=== PATIENT | male | born 1945 | race Caucasian/White ===

== ENCOUNTER 2020-02-22 13:23 | Outpatient (REF) | payer MEDICARE, MEDICAID, SELFPAY | END 2020-02-22 13:24 | disposition home or self-care (01) | LOC: HO.LAB 13:23 | PROVIDERS: Visit Provider Internal Medicine | DX: Z20.828 Contact with and (suspected) exposure to other viral communicable diseases (principal) | CPT/HCPCS: C9803; U0003 ==

== ENCOUNTER 2020-07-03 08:17 | Outpatient (REF) | payer MEDICARE, MEDICAID, SELFPAY ==
[2020-07-03 09:47] LABS: Alanine Aminotransferase 40 U/L (0-40); Albumin Level 4.2 g/dL (3.5-5.0); Alkaline Phosphatase 67 U/L (39-117); Anion Gap 12 (12-20); Aspartate Amino Transferase 32 U/L (5-37); Bilirubin Total 0.4 mg/dL (0.0-1.0); Blood Urea Nitrogen 23 mg/dL (9-16); Calcium 9.8 mg/dL (8.4-10.2); Carbon Dioxide 32 mmol/L (22-29); Chloride 104 mmol/L (96-108); Cholesterol 188 mg/dL; Estimated Glomerular Filt Rate > 60; Glucose Fasting 128 mg/dL (60-99); HDL Cholesterol 55 mg/dL; LDL Cholesterol Calculated 118 mg/dl; Potassium 4.8 mmol/L (3.3-5.1); Sodium 143 mmol/L (135-145); Total Protein 6.8 g/dL (6.5-8.0); Triglycerides 77 mg/dL
== END 2020-07-03 08:18 | disposition home or self-care (01) ==
LOC: HO.LAB 08:17
PROVIDERS: PCP Internal Medicine; Visit Provider Internal Medicine
DX: I10 Essential (primary) hypertension (principal); E78.5 Hyperlipidemia, unspecified
CPT/HCPCS: 36415; 80053; 80061

== ENCOUNTER 2020-11-13 12:49 | Outpatient (REF) | payer MEDICARE, MEDICAID, SELFPAY ==
--- NOTE | ~2020-11-13 | XR_ITS ---
EXAMINATION: XR SHOULDER, LEFT CLINICAL INFORMATION: Sprain COMPARISON: None TECHNIQUE: 3 views of the left shoulder. FINDINGS: No fracture or dislocation is seen. 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 There are small undersurface acromial osteophytes. The acromioclavicular joint appears slightly widened on the AP view. If there is clinical suspicion of AC separation, weightbearing views would be recommended. Soft tissues are unremarkable. XR/XR shoulder LT min 2V IMPRESSION: Degenerative changes. No fracture or dislocation seen. Slightly widened acromioclavicular joint. If there is clinical suspicion of AC separation, weightbearing views would be recommended.
== END 2020-11-13 12:50 | disposition home or self-care (01) ==
LOC: HO.HMGCX 12:49
PROVIDERS: PCP Internal Medicine; Visit Provider Internal Medicine
DX: Z13.89 Encounter for screening for other disorder (principal)
CPT/HCPCS: 73030

== ENCOUNTER → 2020-12-07 09:50 | Outpatient (BNVA) | payer MEDICARE, MEDICAID, SELFPAY | PROVIDERS: PCP Internal Medicine; Visit Provider Physician Assistant | DX: M77.8 Other enthesopathies, not elsewhere classified (principal) | CPT/HCPCS: 99202 ==

== ENCOUNTER 2021-06-03 08:43 | Outpatient (REF) | payer MEDICARE, MEDICAID, SELFPAY ==
[2021-06-03 09:03] LABS: MANUAL DIFF FLAG NO
[2021-06-03 09:26] LABS: Basophils Absolute Auto 0.1 X10*3/uL (0.0-0.2); Eosinophils Absolute Auto 0.2 X10*3/uL (0.0-0.4); Eosinophils Percent Auto 3.1 % (0-4); Hematocrit 51.6 % (42.0-52.0); Hemoglobin 16.8 g/dl (14.0-18.0); Imm Gran Abs Auto 0.02 X10*3/uL (0.00-0.03); Imm Gran Pct Auto 0.3 % (0.0-0.4); Lymphocytes Absolute Auto 1.8 X10*3/uL (1.2-4.9); Lymphocytes Percent Auto 27.2 % (20-40); Mean Corpuscular HGB Conc 32.6 g/dl (31.0-36.0); Mean Corpuscular Hemoglobin 31.4 pg (27.0-33.0); Mean Corpuscular Volume 96.4 fL (80.0-98.0); Monocytes Absolute Auto 1.1 X10*3/uL (0.1-1.2); Neutrophils Absolute Auto 3.4 x10*3/uL (2.0-8.3); Neutrophils Percent Auto 51.4 % (45-73); Platelet Count 241 X10*3/uL (160-400); Red Blood Count 5.35 X10*6/uL (4.60-5.80); Red Cell Distribution Width 13.1 % (11.0-16.0); White Blood Count 6.7 X10*3/uL (4.8-10.8)
[2021-06-03 09:32] LABS: Estimated Average Glucose 137 mg/dL; Hemoglobin A1c % 6.4 %
[2021-06-03 10:00] LABS: Alanine Aminotransferase 36 U/L (0-40); Albumin Level 4.3 g/dL (3.5-5.0); Alkaline Phosphatase 105 U/L (39-117); Anion Gap 13 (12-20); Aspartate Amino Transferase 29 U/L (5-37); Bilirubin Total 0.5 mg/dL (0.0-1.0); Blood Urea Nitrogen 17 mg/dL (9-16); Calcium 9.8 mg/dL (8.4-10.2); Carbon Dioxide 31 mmol/L (22-29); Chloride 103 mmol/L (96-108); Cholesterol 133 mg/dL; Estimated Glomerular Filt Rate > 60; Glucose Fasting 139 mg/dL (60-99); HDL Cholesterol 47 mg/dL; LDL Cholesterol Calculated 72 mg/dl; Potassium 4.6 mmol/L (3.3-5.1); Sodium 142 mmol/L (135-145); Total Protein 7.1 g/dL (6.5-8.0); Triglycerides 74 mg/dL
[2021-06-03 10:13] LABS: TSH reflex Free T4 1.36 uIU/mL (0.32-4.0)
[2021-06-03 10:26] LABS: Folate 16.4 ng/mL (> or = 4.0); Vitamin B12 270 pg/mL (200-900)
[2021-06-07 13:06] LABS: Vitamin D 25-OH, D2 <4 ng/mL; Vitamin D 25-OH, D3 9 ng/mL; Vitamin D 25-OH, Total 9 ng/mL (30-100)
== END 2021-06-03 08:44 | disposition home or self-care (01) ==
LOC: HO.LAB 08:43
PROVIDERS: PCP Internal Medicine; Visit Provider Nurse Practitioner Acute Care
DX: I10 Essential (primary) hypertension (principal); R53.83 Other fatigue; R73.02 Impaired glucose tolerance (oral); E78.5 Hyperlipidemia, unspecified
CPT/HCPCS: 36415; 80053; 80061; 82306; 82607; 82746; 83036; 84443; 85025

== ENCOUNTER 2021-07-01 09:20 | Outpatient (REF) | payer MEDICARE, MEDICAID, SELFPAY ==
--- NOTE | ~2021-07-01 | US_ITS ---
EXAMINATION: US EXTRACRANIAL CAROTID DUPLEX, BILATERAL CLINICAL INFORMATION: This is a 75-year-old male with a carotid bruit. Carotid artery disease. History of carotid endarterectomy on the right side. COMPARISON: Comparison is made to a previous study dated 09/02/2017 which demonstrated 50-79% right internal carotid artery stenosis and 50-79% left internal carotid artery stenosis. TECHNIQUE: Real-time ultrasound and Doppler techniques (integrating B-mode 2-D vascular images, Doppler spectral analysis and color-flow Doppler imaging) were utilized to interrogate the extracranial carotid arteries, the vertebral arteries and proximal subclavian arteries bilaterally. The degree of stenosis is determined by criteria similar to NASCET. FINDINGS: Right Side: 1. There is moderate atherosclerotic plaque seen in the bifurcation/proximal ICA region. 2. The common carotid artery PSV proximally is 147 cm/s and distally 107 cm/s. 3. The proximal internal carotid artery velocities are 182 cm/s systolic and 31 cm/s diastolic. 4. The proximal external carotid artery PSV is 349 cm/s. The velocities are elevated suggesting hemodynamically significant stenosis. This was seen previously on the study dated 09/02/2017. 5. The vertebral artery shows antegrade flow. 6. The subclavian artery waveforms are normal.. Left Side: 1. There is minimal atherosclerotic plaque seen in the bifurcation/proximal ICA region. 2. The common carotid artery PSV proximally is 116 cm/s and distally 88 cm/s. 3. The proximal internal carotid artery velocities are 57 cm/s systolic and 10 cm/s diastolic. 4. The proximal external carotid artery PSV is 501 cm/s.. The velocities are elevated suggesting hemodynamically significant stenosis. This appears more severe when compared to the previous study dated 09/02/2017. 5. The vertebral artery shows antegrade flow. 6. The subclavian artery waveforms are normal. US/US carotid duplex BI IMPRESSION: 1. RIGHT: Moderate, hemodynamically significant stenosis of the proximal right internal carotid artery corresponding to a 50-79% stenosis by velocity criteria. The category severity of disease appears similar to the previous study. 2. LEFT: Minimal, non-hemodynamically significant stenosis of the proximal left internal carotid artery corresponding to a 0-49% stenosis by velocity criteria. The category severity of disease appears less severe when compared to the previous study. 3. There is a complex cystic and solid mass adjacent to the right internal carotid artery. This is new when compared to the previous examination dated 09/02/2017. This measures 1.9 x 0.9 x 1.9 cm. There are areas of internal echoes within the mass. This does not appear to be a simple lymph node. Further investigation is recommended with CT scan of the neck with contrast.
== END 2021-07-01 09:21 | disposition home or self-care (01) ==
LOC: HO.US 09:20
PROVIDERS: PCP Internal Medicine; Visit Provider Nurse Practitioner Acute Care
DX: I65.22 Occlusion and stenosis of left carotid artery (principal); R09.89 Other specified symptoms and signs involving the circulatory and respiratory systems; G47.33 Obstructive sleep apnea (adult) (pediatric)
CPT/HCPCS: 93880

== ENCOUNTER → 2021-07-11 10:06 | Outpatient (BNVA) | payer MEDICARE, MEDICAID, SELFPAY | PROVIDERS: PCP Internal Medicine; Referring Provider Internal Medicine; Visit Provider Surgery | DX: K80.20 Calculus of gallbladder without cholecystitis without obstruction (principal); K42.9 Umbilical hernia without obstruction or gangrene; K59.04 Chronic idiopathic constipation; R09.89 Other specified symptoms and signs involving the circulatory and respiratory systems; R73.02 Impaired glucose tolerance (oral); E78.5 Hyperlipidemia, unspecified; G47.33 Obstructive sleep apnea (adult) (pediatric); I71.4 Abdominal aortic aneurysm, without rupture; I10 Essential (primary) hypertension; F17.210 Nicotine dependence, cigarettes, uncomplicated | CPT/HCPCS: 99202 ==

== ENCOUNTER 2021-07-16 09:26 | Outpatient (REF) | payer MEDICARE, MEDICAID, SELFPAY ==
[2021-07-16 09:55] LABS: MANUAL DIFF FLAG NO
[2021-07-16 10:17] LABS: Basophils Absolute Auto 0.1 X10*3/uL (0.0-0.2); Basophils Percent Auto 0.9 % (0-2); Eosinophils Absolute Auto 0.2 X10*3/uL (0.0-0.4); Eosinophils Percent Auto 3.5 % (0-4); Hematocrit 45.1 % (42.0-52.0); Hemoglobin 14.9 g/dl (14.0-18.0); Imm Gran Abs Auto 0.02 X10*3/uL (0.00-0.03); Imm Gran Pct Auto 0.4 % (0.0-0.4); Lymphocytes Absolute Auto 1.5 X10*3/uL (1.2-4.9); Mean Corpuscular Hemoglobin 31.4 pg (27.0-33.0); Mean Corpuscular Volume 95.1 fL (80.0-98.0); Mean Platelet Volume 9.8 fL (9.4-12.4); Monocytes Absolute Auto 0.7 X10*3/uL (0.1-1.2); Monocytes Percent Auto 12.5 % (2-11); Neutrophils Absolute Auto 3.2 x10*3/uL (2.0-8.3); Neutrophils Percent Auto 55.7 % (45-73); Platelet Count 238 X10*3/uL (160-400); Red Blood Count 4.74 X10*6/uL (4.60-5.80); Red Cell Distribution Width 13.7 % (11.0-16.0); White Blood Count 5.7 X10*3/uL (4.8-10.8)
[2021-07-16 10:40] LABS: Alanine Aminotransferase 31 U/L (0-40); Alkaline Phosphatase 79 U/L (39-117); Anion Gap 14 (12-20); Aspartate Amino Transferase 24 U/L (5-37); Bilirubin Total 0.2 mg/dL (0.0-1.0); Blood Urea Nitrogen 20 mg/dL (9-16); Calcium 9.4 mg/dL (8.4-10.2); Carbon Dioxide 27 mmol/L (22-29); Chloride 104 mmol/L (96-108); Estimated Glomerular Filt Rate > 60; Glucose Random 122 mg/dL (60-115); Potassium 4.1 mmol/L (3.3-5.1); Sodium 141 mmol/L (135-145); Total Protein 6.6 g/dL (6.5-8.0)
== END 2021-07-16 09:27 | disposition home or self-care (01) ==
LOC: HO.LAB 09:26
PROVIDERS: PCP Internal Medicine; Visit Provider Nurse Practitioner Acute Care
DX: R22.1 Localized swelling, mass and lump, neck (principal)
CPT/HCPCS: 36415; 80053; 85025

== ENCOUNTER 2021-07-18 09:48 | Outpatient (REF) | payer MEDICARE, MEDICAID, SELFPAY ==
--- NOTE | ~2021-07-18 | CT_ITS ---
EXAMINATION: CT SOFT TISSUE NECK WITH CONTRAST CLINICAL INFORMATION: 75-year-old with right neck mass seen on previous carotid ultrasound. COMPARISON: 07/01/2021 carotid ultrasound. TECHNIQUE: Following the intravenous administration of 60 mL of Omnipaque 350 intravenous contrast, helical imaging was performed in the axial plane with generation of coronal and sagittal reformatted images. This CT examination was performed using dose optimization techniques as appropriate, variously including the following: *Automated exposure control. *Adjustment of mA and/or kV according to patient size (this includes techniques or standardized protocols for targeted exams where dose is matched to indication/reason for exam; i.e. extremities or head). *Use of iterative reconstruction technique. DLP: 822 mGy-cm FINDINGS: Skull Base: The visualized calvarium and bony skull base appear grossly intact. The mastoids and middle ear cavities are unopacified and the visualized paranasal sinuses are predominantly clear. Bilateral carotid calcifications are noted. The visualized intracranial structures are grossly unremarkable in appearance within the limitations of the study. Suprahyoid Neck: The nasopharynx shows a few punctate calcifications in the midline but is otherwise bilaterally symmetric and normal in morphology and attenuation. Retropharynx appears unremarkable. The station mechanic apprentice and parapharyngeal spaces are within normal limits. The oropharynx is smoothly contoured. The parotid glands and submandibular glands are normal in morphology and attenuation. The visualized oral tongue, base of the tongue and floor of the mouth structures are symmetric and normal in attenuation. There is calcification of the distal right stylohyoid ligament. There are small, nonenlarged bilateral submandibular space and submental lymph nodes. There are multiple nonpathologic-appearing, nonenlarged bilateral suprahyoid IJ chain lymph nodes and there is a nonenlarged periparotid lymph node adjacent to the tail of the left parotid gland. Note is made of a 1.8 x 1.7 x 1.1 cm ovoid, well circumscribed fluid attenuation structure within the subcutaneous fat just lateral to the right platysma and external jugular vein and sternocleidomastoid muscle at the level of the submandibular space. The location of this lesion is not consistent with a type II branchial cleft cyst. Differential diagnostic considerations would include a sebaceous cyst or possibly an enlarged cystic lymph node. Recommend tissue diagnosis. Infrahyoid Neck: Atheromatous calcified plaque at both carotid bifurcations are noted. See previous carotid ultrasound report. The hypopharynx, larynx and thyroid gland appear within normal limits. No infrahyoid lymphadenopathy identified. Upper Chest: Probable fibrotic changes at both lung apices. Heterogeneous lung attenuation noted bilaterally is likely reflecting the expiratory state of this exam. Atheromatous calcifications of the thoracic aortic arch and great vessels are noted. Skeletal: Cervical discogenic degenerative changes at C5-C6 and C6-C7 with mild anterolisthesis at C4-C5 and trace anterolisthesis at C5-C6. Mild lower cervical dextrocurvature. Heterotopic ossification along the nuchal ligament. Other Comments: None. CT/CT soft tissue neck w con IMPRESSION: 1. A 1.8 cm ovoid somewhat cystic-appearing subcutaneous mass overlying the lateral aspect of the right platysma. Differential diagnostic considerations include sebaceous cyst (epidermal inclusion cyst), cystic lymph node or less likely the remnant of a lymphatic malformation. Suggest tissue diagnosis. 2. Otherwise, no cervical lymphadenopathy. 3. Atheromatous calcifications of the carotid bifurcations. See previous carotid ultrasound report. 4. Cervical degenerative changes and subluxations.
== END 2021-07-18 09:49 | disposition home or self-care (01) ==
LOC: HO.CT 09:48
PROVIDERS: Visit Provider Nurse Practitioner Acute Care
DX: R22.1 Localized swelling, mass and lump, neck (principal)
CPT/HCPCS: 70491; Q9967

== ENCOUNTER → 2021-08-11 21:03 | Outpatient (REF) | payer MEDICARE, MEDICAID, SELFPAY | LOC: HO.SL 21:03 | PROVIDERS: Visit Provider Nurse Practitioner Acute Care | DX: G47.33 Obstructive sleep apnea (adult) (pediatric) (principal) | CPT/HCPCS: 95810 ==

== ENCOUNTER → 2021-10-15 10:30 | Outpatient (BNVA) | payer MEDICARE, MEDICAID, SELFPAY | PROVIDERS: PCP Internal Medicine; Visit Provider Surgery | DX: K42.9 Umbilical hernia without obstruction or gangrene (principal); K59.00 Constipation, unspecified; K80.20 Calculus of gallbladder without cholecystitis without obstruction; I71.4 Abdominal aortic aneurysm, without rupture; K64.9 Unspecified hemorrhoids; Z79.899 Other long term (current) drug therapy | CPT/HCPCS: 99212 ==

== ENCOUNTER → 2021-11-26 11:38 | Outpatient (BNVA) | payer MEDICARE, MEDICAID, SELFPAY | PROVIDERS: PCP Internal Medicine; Visit Provider Orthopaedic Surgery | DX: M65.341 Trigger finger, right ring finger (principal); M65.331 Trigger finger, right middle finger; M65.332 Trigger finger, left middle finger | CPT/HCPCS: 99212 ==

== ENCOUNTER 2021-12-10 10:05 | Outpatient (REF) | payer MEDICARE, MEDICAID, SELFPAY ==
--- NOTE | ~2021-12-10 | US_ITS ---
EXAMINATION: US RETROPERITONEAL LIMITED (AORTA) CLINICAL INFORMATION: Abdominal aortic aneurysm without rupture. COMPARISON: None TECHNIQUE: Velasco-scale, color Doppler and spectral Doppler evaluation of the abdominal aorta. FINDINGS: There is mild dilatation of the distal abdominal aorta measuring 3.6 x 4 cm. The measurements of the aorta in maximum AP and transverse dimensions respectively are as follows: Proximal: 2.2 x 2.8 cm. Mid: 3.6 x 4.0 cm. Distal: 2.0 x 2.2 cm. PSV: 145 cm/s. The measurements of the common iliac arteries in maximum AP and TRV dimensions are as follows: Right Common Iliac Artery: 1.1 x 1.2 cm. Left Common Iliac Artery: 1.2 x 1.2 cm. US/US abdominal aortic aneurysm IMPRESSION: Small abdominal aortic aneurysm measuring 3.6 x 4 cm. Yearly ultrasound followup for 5 years recommended..
== END 2021-12-10 10:06 | disposition home or self-care (01) ==
LOC: HO.US 10:05
PROVIDERS: Visit Provider Internal Medicine
DX: I71.40 Abdominal aortic aneurysm, without rupture, unspecified (principal)
CPT/HCPCS: 76706

== ENCOUNTER → 2022-02-13 10:07 | Outpatient (BNVA) | payer MEDICARE, MEDICAID, SELFPAY | PROVIDERS: PCP Internal Medicine; Visit Provider Surgery Vascular Surgery | DX: I71.40 Abdominal aortic aneurysm, without rupture, unspecified (principal) | CPT/HCPCS: 99202 ==

== ENCOUNTER → 2022-02-27 08:47 | Outpatient (REF) | payer MEDICARE, MEDICAID, SELFPAY ==
--- NOTE | 2022-02-27 08:51 | ECG_ITS ---
Test Reason : Z01.810 Pre-op Blood Pressure : / mmHG Vent. Rate : 078 BPM Atrial Rate : 078 BPM P-R Int : 184 ms QRS Dur : 104 ms QT Int : 392 ms P-R-T Axes : 077 069 099 degrees QTc Int : 446 ms Normal sinus rhythm Nonspecific T wave abnormality Abnormal ECG When compared to the previous EKG of nonspecific T wave changes are present Referred By: Montserrat Goldman Electronically Signed By:Joe Patrick
[2022-02-27 09:02] LABS: MANUAL DIFF FLAG NO
[2022-02-27 09:31] LABS: Basophils Percent Auto 0.6 % (0-2); Eosinophils Absolute Auto 0.2 X10*3/uL (0.0-0.4); Eosinophils Percent Auto 3.1 % (0-4); Hematocrit 48.7 % (42.0-52.0); Hemoglobin 15.9 g/dl (14.0-18.0); Imm Gran Abs Auto 0.02 X10*3/uL (0.00-0.03); Imm Gran Pct Auto 0.3 % (0.0-0.4); Lymphocytes Absolute Auto 1.7 X10*3/uL (1.2-4.9); Lymphocytes Percent Auto 27.1 % (20-40); Mean Corpuscular HGB Conc 32.6 g/dl (31.0-36.0); Mean Corpuscular Hemoglobin 31.5 pg (27.0-33.0); Mean Corpuscular Volume 96.6 fL (80.0-98.0); Monocytes Absolute Auto 0.7 X10*3/uL (0.1-1.2); Monocytes Percent Auto 11.3 % (2-11); Neutrophils Absolute Auto 3.6 x10*3/uL (2.0-8.3); Neutrophils Percent Auto 57.6 % (45-73); Platelet Count 243 X10*3/uL (160-400); Red Blood Count 5.04 X10*6/uL (4.60-5.80); Red Cell Distribution Width 13.8 % (11.0-16.0); White Blood Count 6.2 X10*3/uL (4.8-10.8)
[2022-02-27 10:36] LABS: Alanine Aminotransferase 26 U/L (0-40); Albumin Level 4.3 g/dL (3.5-5.0); Alkaline Phosphatase 86 U/L (39-117); Anion Gap 11 (12-20); Aspartate Amino Transferase 25 U/L (5-37); Blood Urea Nitrogen 18 mg/dL (9-16); Calcium 9.5 mg/dL (8.4-10.2); Carbon Dioxide 31 mmol/L (22-29); Chloride 104 mmol/L (96-108); Cholesterol 141 mg/dL; Estimated Glomerular Filt Rate > 60; Glucose Fasting 122 mg/dL (60-99); HDL Cholesterol 53 mg/dL; LDL Cholesterol Calculated 77 mg/dl; Potassium 4.6 mmol/L (3.3-5.1); Sodium 141 mmol/L (135-145); Total Protein 6.8 g/dL (6.5-8.0); Triglycerides 56 mg/dL
[2022-02-27 11:41] LABS: Bilirubin Total 0.4 mg/dL (0.0-1.0); Thyroid Stimulating Hormone 1.97 uIU/mL (0.32-4.0); Vitamin D 25-OH Total 18.8 ng/mL (>30)
[2022-02-27 13:28] LABS: Folate 11.7 ng/mL (> or = 4.0); Vitamin B12 279 pg/mL (200-900)
== END ==
LOC: HO.CARD 08:47
PROVIDERS: PCP Internal Medicine; Visit Provider Internal Medicine
DX: Z01.810 Encounter for preprocedural cardiovascular examination (principal); R53.82 Chronic fatigue, unspecified; I71.40 Abdominal aortic aneurysm, without rupture, unspecified; E55.9 Vitamin D deficiency, unspecified; E78.5 Hyperlipidemia, unspecified
CPT/HCPCS: 36415; 80053; 80061; 82306; 82607; 82746; 84443; 85025; 93005

== ENCOUNTER 2022-08-01 08:41 | Outpatient (REF) | payer MEDICARE, MEDICAID, SELFPAY ==
[2022-08-01 08:56] LABS: MANUAL DIFF FLAG NO
[2022-08-01 09:12] LABS: Basophils Absolute Auto 0.1 X10*3/uL (0.0-0.2); Basophils Percent Auto 0.9 % (0-2); Eosinophils Absolute Auto 0.2 X10*3/uL (0.0-0.4); Eosinophils Percent Auto 2.7 % (0-4); Hematocrit 42.9 % (42.0-52.0); Hemoglobin 14.3 g/dl (14.0-18.0); Imm Gran Abs Auto 0.01 X10*3/uL (0.00-0.03); Imm Gran Pct Auto 0.1 % (0.0-0.4); Lymphocytes Absolute Auto 1.9 X10*3/uL (1.2-4.9); Lymphocytes Percent Auto 27.9 % (20-40); Mean Corpuscular HGB Conc 33.3 g/dl (31.0-36.0); Mean Corpuscular Hemoglobin 31.8 pg (27.0-33.0); Mean Corpuscular Volume 95.5 fL (80.0-98.0); Mean Platelet Volume 9.2 fL (9.4-12.4); Monocytes Percent Auto 14.4 % (2-11); Neutrophils Absolute Auto 3.6 x10*3/uL (2.0-8.3); Platelet Count 277 X10*3/uL (160-400); Red Blood Count 4.49 X10*6/uL (4.60-5.80); Red Cell Distribution Width 13.9 % (11.0-16.0); White Blood Count 6.7 X10*3/uL (4.8-10.8)
[2022-08-01 09:58] LABS: Alanine Aminotransferase 40 U/L (0-40); Albumin Level 4.1 g/dL (3.5-5.0); Alkaline Phosphatase 79 U/L (39-117); Anion Gap 14 (12-20); Aspartate Amino Transferase 31 U/L (5-37); Bilirubin Total 0.4 mg/dL (0.0-1.0); Blood Urea Nitrogen 16 mg/dL (9-16); Calcium 9.6 mg/dL (8.4-10.2); Carbon Dioxide 25 mmol/L (22-29); Chloride 106 mmol/L (96-108); Cholesterol 143 mg/dL; Estimated Glomerular Filt Rate > 60; Glucose Fasting 113 mg/dL (60-99); HDL Cholesterol 56 mg/dL; LDL Cholesterol Calculated 74 mg/dl; Potassium 4.7 mmol/L (3.3-5.1); Sodium 140 mmol/L (135-145); Total Protein 6.5 g/dL (6.5-8.0); Triglycerides 67 mg/dL
[2022-08-09 14:43] LABS: NT-proBNP 51 pg/mL (<450)
== END 2022-08-01 08:42 | disposition home or self-care (01) ==
LOC: HO.LAB 08:41
PROVIDERS: PCP Internal Medicine; Visit Provider Internal Medicine
DX: R07.9 Chest pain, unspecified (principal); E78.5 Hyperlipidemia, unspecified; E55.9 Vitamin D deficiency, unspecified; I10 Essential (primary) hypertension
CPT/HCPCS: 36415; 80053; 80061; 82306; 83880; 85025

== ENCOUNTER 2022-08-07 09:07 | Outpatient (REF) | payer MEDICARE, MEDICAID, SELFPAY ==
--- NOTE | ~2022-08-07 | US_ITS ---
EXAMINATION: US RETROPERITONEAL LIMITED (AORTA) CLINICAL INFORMATION: Abdominal aortic aneurysm without rupture, unspecified. COMPARISON: Ultrasound aorta 12/10/2021. TECHNIQUE: Velasco-scale, color Doppler and spectral Doppler evaluation of the abdominal aorta. FINDINGS: The measurements of the aorta in maximum AP and transverse dimensions respectively are as follows: Proximal: 2.1 x 2.1 cm. Mid: 2.2 x 2.1 cm. Distal: 3.5 x 4.0 cm. PSV: 89.4 cm/s. The measurements of the common iliac arteries in maximum AP and TRV dimensions are as follows: Right Common Iliac Artery: 1.1 x 1.1 cm. Left Common Iliac Artery: 1.3 x 1.2 cm. US/US abdominal aortic aneurysm IMPRESSION: Mild distal aortic aneurysm measuring 3.5 x 4.0 cm. It is unchanged to previous exam.
== END 2022-08-07 09:08 | disposition home or self-care (01) ==
LOC: HO.US 09:07
PROVIDERS: Visit Provider Surgery Vascular Surgery
DX: I71.40 Abdominal aortic aneurysm, without rupture, unspecified (principal)
CPT/HCPCS: 76706

== ENCOUNTER → 2022-08-21 13:22 | Outpatient (REF) | payer MEDICARE, MEDICAID, SELFPAY ==
--- NOTE | 2022-08-21 13:24 | CA_ITS ---
Transthoracic Echocardiogram Patient (Last, First, Middle): Easton Kelly A Gender: Male Date of : 1945 Age: 76 Procedure Date: 08/21/2022 Procedure Type: Transthoracic Echocardiogram Location: OP Height: 175.26 cm Weight: 90.72 kg BSA: 2.07 m2 Heart Rate: bpm BP: 144 / 72 mmHg Singer And Unloader: MILTON Referring MD: Montserrat Goldman MD Penology Professor: Misha Loza MD Symptoms: R01.1 - Cardiac murmur, unspecified Study Quality: Adequate ECG Rhythm: Sinus Conclusions: - 1. Normal LV systolic function with mild LVH with grade 1 diastolic dysfunction 2. Normal cardiac valvular Dopplers next 3. Normal RV systolic pressure 4. No gross pericardial effusion Findings Left Ventricle Normal left ventricular size and systolic function. There is mildly increased left ventricular wall thickness. The visually estimated ejection fraction is between 60-65%. Spectral Doppler is indicative of an impaired relaxation filling pattern. E/E prime ratio is <8, consistent with normal filling pressures. Evidence suggests grade I (mild) diastolic dysfunction. Peak GLS is -18.1%, within normal limits, Right Ventricle Normal right ventricular cavity size and systolic function. Atria The left atrium is likely dilated. There is no evidence of interatrial shunt. The right atrium is normal in size. Aortic Valve Normal aortic valve structure and function. There is no aortic valve stenosis. There is no aortic valve regurgitation. Mitral Valve Normal mitral valve structure and function. There is trace mitral valve regurgitation. There is no mitral valve stenosis. Pulmonic Valve The pulmonic valve is likely normal. Tricuspid Valve Normal tricuspid valve structure. There is trace tricuspid valve regurgitation. The right ventricular systolic pressure is normal. The right ventricular systolic pressure is 19 mmHg. Normal right atrial pressure. There is no evidence of pulmonary hypertension. Great Vessels All visible segments of the aorta are normal in size. The pulmonary artery was not well visualized. Venous The inferior vena cava is normal in size and collapses greater than 50% with inspiration. Pericardium/Pleural There is no evidence of pericardial effusion. Measurements 2D Linear Measurements IVSd: 1.10 0.6-0.9/0.6-1.0 cm LVIDd: 4.56 3.9-5.3/4.2-5.9 cm LVIDd Index: 2.20 2.4-3.2/2.2-3.1 cm/m2 LVIDs: 2.85 2.0-3.6 cm LVPWd: 1.23 0.7-1.1 cm LA Diam: 2.80 2.7-3.8/3.0-4.0 cm LAIDs Index: 1.35 1.5-2.3 cm/m2 LV Mass: 241.55 67-162/88-224 g LV Mass Index: 116.69 43-95/49-115 g/m2 LVOT Diam: 2.00 3.0+(-)1.3 cm 2D Systolic Function EF 4C: 64.20 >55% EF 2C: 70.20 >55% EF BiP: 67.70 >55% Mitral Valve MV Pk E: 0.78 MV PK A: 0.99 MV Decel Time: 367.00 E/A: 0.80 E'Lateral: 6.85 E'Medial: 5.55 E/E' Med: 14.00 E/E' Lat: 11.30 PHT: 107.00 MVA PHT: 2.06 Decel [place]: 2.12 Aortic Valve AoV Pk Giovany: 2.16 AoV Mn Giovany: 1.25 AoV VTI: 0.39 AoV Pk Grad: 19.00 Aov Mn Grad: 7.00 DANTE Cont.VTI: 2.61 LVOT LVOT Pk Giovany: 1.53 LVOT Mn Giovany: 1.06 LVOT VTI: 0.32 LVOT Pk Grad: 9.00 LVOT Mn Grad: 5.00 LVOT Diam: 2.00 LVOT Area: 3.14 Diastolic Function MV Pk E: 0.78 MV Pk A: 0.99 E/A: 0.80 E'Medial: 5.55 E/E' Med: 14.00 E' Laterial: 6.85 E/E' Lat: 11.30 Right Ventricle TAPSE (mm): 26.30 TVS' Giovany: 16.40 Tricuspid Valve TR Pk Giovany: 2.01 TR Pk Grad: 16.00 RA Press: 3.00 RVSP: 19.00 Great Vessels Aorta Sinus of Valsalva: 3.21 2.0-3.[address] Ridge: 2.17 1.7-3.4 cm Ao Asc: 3.00 2.1-3.4 cm Ao Arch: 2.70 Updated in Other Vendor System with Status of Final Misha Loza MD electronically signed on 08/23/2022 12:32:40 PM with status of Final
== END ==
LOC: HO.CARD 13:22
PROVIDERS: Visit Provider Internal Medicine
DX: R01.1 Cardiac murmur, unspecified (principal)
CPT/HCPCS: 93306; 93356

== ENCOUNTER 2022-10-07 08:30 | Outpatient (AMB) | payer MEDICARE, MEDICAID, SELFPAY ==
[2022-10-07 08:43] VITALS: BP 140/88; PULSE 90; BMI 29.9
--- NOTE | 2022-10-07 08:43 | MHC.OFFVIS ---
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, unspecified Intake Note: New patient from Dr Bolñaos dx chest pain c/o pain done the center of chest (even hurts to laugh) also c/o sob Sales Support Advisor Required: Yes Sales Support Advisor Name: christo willams Allergies No Known Allergies Allergy (Mild, Verified 07/31/22 16:25) NOT APPLICABLE Medication List - Last Reconciled 10/07/22 by Misha Loza MD aspirin (Adult Low Dose Aspirin) 81 mg PO DAILY atorvastatin 40 mg PO BEDTIME 90 days cholecalciferol (vitamin D3) 25 mcg PO DAILY 90 days diclofenac sodium 1% (Voltaren Arthritis Pain) 4 grams topical QID PRN diltiazem HCl 240 mg PO DAILY 90 days hydralazine 50 mg PO TID 30 days hydrochlorothiazide 25 mg PO DAILY 90 days lisinopril 40 mg PO DAILY 90 days sennosides (senna) 8.6 mg PO BEDTIME PRN 90 days HPI HPI Comments History of Present Illness Details Thank you for referring Easton in cardiology consultation today for chest discomfort. We obtain history was help of for medical education coordinator. Despite the medical education coordinator patient is not a good historian. Patient said about a month ago he went to [facility] because of severe chest discomfort in the retrosternal area. He had a workup there and was subsequently told to follow-up with a cook pickled meat and he has been referred here. He said for about a month or before that he has been symptoms of exertional fatigue and associated with mild chest discomfort. However on the day when he went to the emergency room he over exerted himself a got more severe chest pain therefore event to the emergency room. Since then he does get symptoms of exertional shortness of breath with similar activity, there is no crescendo pattern to it. He then stops. If he does not he does get mild chest pressure. However history is difficult to obtain. He has not had any symptoms at rest. He denies any orthopnea, PND. He had abdominal ultrasound which shows abdominal aortic aneurysm at 4 cm. He had carotid duplex last year which shows 50-79% stenosis on the right and 0-49% stenosis on the left. He has never any cardiac workup. He has longstanding history of hypertension which is currently treated with medications. He also has hyperlipidemia for which he takes medications. Never had myocardial infarction or congestive heart failure. Echocardiogram done recently for murmur shows normal LV systolic function with mild LVH with normal cardiac valvular Doppler [facility] Medical History Dyslipidemia Essential hypertension Impaired glucose tolerance Surgical History History of knee replacement History of prostate surgery Family History Father No problems noted. Mother No problems noted. Social History Housing: House Alcohol intake: current Alcohol intake frequency: a few times a month Alcohol type: beer Patient Tobacco Use Status: Current someday Tobacco user Tobacco use type: Cigarette Cigarettes Per Day: 3 e-Cigarette/Vaping Use: Never Used Second Hand Smoke Exposure: No service: No Current occupational status: retired and disabled Cognitive needs: No Hearing needs: No Vision needs: Yes (glasses) Review of Systems Const Denies chills, Denies daytime sleepiness, Denies fatigue, Denies fever(s), Denies frequent falls, Denies poor appetite, Denies snoring, Denies stops breathing during sleep, Denies weakness, Denies weight gain and Denies weight loss Eyes Denies loss of vision ENT Denies dizziness and Denies hearing loss Card Denies chest pain, Denies claudication, Denies leg edema, Denies lightheadedness, Denies palpitations, Denies dyspnea, Denies dyspnea on exertion and Denies orthopnea Resp Denies cough, Denies excessive phlegm production, Denies dyspnea, Denies dyspnea on exertion, Denies snoring and Denies wheezing GI Denies abdominal pain, Denies hematochezia, Denies change in bowel habits, Denies nausea and Denies vomiting Denies dysuria and Denies urinary frequency Musc Denies arthralgias, Denies muscle weakness, Denies numbness and Denies other (frequent falls) Skin/Breast Denies nail changes and Denies rash Neuro Denies Abnormal speech present, Denies dizziness, Denies frequent falls, Denies loss of vision, Denies memory loss, Denies numbness and Denies weakness Psych Denies depression and Denies memory loss Endo Denies fatigue and Denies palpitations Pietro/Lymph Reports easy bruising and Reports other (anemia) Aller/Immun Denies wheezing Physical Exam Vital Signs: Last Vital Signs Pulse 90 10/07/22 08:43 BP 140/88 H 10/07/22 08:43 BMI result Body Mass Index 29.9 Const General: cooperative, comfortable, no acute distress, alert, awake and Physically active Nutritional Appearance: overweight Orientation/consciousness: patient oriented x3 Limitations: no limitations HEENT Head: Yes normocephalic and Yes atraumatic Neck Neck: Yes trachea midline, Yes supple and Yes no JVD Resp Effort & Inspection: normal respiratory effort Auscultation: clear to auscultation bilaterally Cardio Jugular venous distension: no JVD Palpation: normal PMI Rate: regular rate Rhythm: regular rhythm Heart sounds: S1 normal heart sound present, S2 normal heart sound present, no click, no gallops and Murmur heart sound present systolic early Bruits: carotid bruit bilaterally GI Auscultation: normal bowel sounds Skin General skin exam: no rashes or lesions noted Neuro General: patient oriented x3 and no focal motor deficits Speech: No Abnormal speech present Extrem General: Yes no clubbing, cyanosis or edema Psych Appearance: grossly normal Office Procedures EKG Details: EKG shows normal sinus rhythm with possible left atrial enlargement nonspecific T-wave changes [id number], Complete Assessment & Plan Assessment & Plan (1) Exertional chest pain: Code(s): R07.9 - Chest pain, unspecified Plan: Elderly gentleman with diffuse vascular disease multiple risk factors present exertional symptoms which are highly concerning for myocardial ischemia. His symptoms are not crescendo and no symptoms at rest. I think therefore we can proceed with exercise testing. This was discussed with him. Will pursue exercise myocardial perfusion imaging in very near future. Till then is advised to avoid any form of exercise. Continue current medical therapy with aspirin and high-intensity statin therapy as well as current antihypertensive and diltiazem. Further treatment based on the finding of stress testing. She cannot exercise on treadmill will perform vasodilating myocardial perfusion imaging and/or cardiac catheterization. This was discussed with him in details with help of medical education coordinator. He also has significant bilateral carotid bruits and will pursue carotid duplex again. May require referral to vascular surgery for his diffuse vascular disease. Will follow up in the clinic in 2 weeks time, sooner p.r.n.. Thank you for allowing me to partake in his care Orders: Orders CA stress test Today R07.9 - Chest pain, unspecified NM cardiolite stress test 2 Weeks R07.9 - Chest pain, unspecified US carotid duplex BI Today R09.89 - Other specified symptoms and signs involving the circulatory and respiratory systems Coding Level of Care Code New Pt Level 4 (29648) Diagnoses Exertional chest pain R07.9 CPT Codes EKG - CPT: [id number], Complete ([id number])
== END 2022-10-07 09:30 | disposition home or self-care (01) ==
PROVIDERS: PCP Internal Medicine; Visit Provider Internal Medicine Cardiovascular Disease
DX: R07.9 Chest pain, unspecified (principal)
CPT/HCPCS: 93010; 99214

== ENCOUNTER → 2022-10-07 08:30 | Outpatient (BNVA) | payer MEDICARE, MEDICAID, SELFPAY | PROVIDERS: PCP Internal Medicine; Visit Provider Internal Medicine Cardiovascular Disease | DX: R07.9 Chest pain, unspecified (principal) | CPT/HCPCS: 93005; 99212 ==

== ENCOUNTER → 2022-10-09 07:40 | Outpatient (REF) | payer MEDICARE, MEDICAID, SELFPAY ==
--- NOTE | ~2022-10-09 | NM_ITS ---
EXERCISE MYOCARDIAL PERFUSION STUDY INDICATION: Chest pain, assess for ischemia TECHNIQUE: The patient was brought in for an exercise perfusion study on 10/09/2022. Patient performed exercise as per Lio protocol and was injected 30 mCi of sestamibi once target heart rate was achieved. Images were obtained using the SPECT gamma camera interlaced with the gating device. Images were obtained in supine position. Resting perfusion study was performed on 10/10/2022. Patient was administered 30 mCi of sestamibi intravenously at rest. Images were then obtained in supine position. Images were processed with the software and compared side to side in short axis, horizontal long axis and vertical long axis views. Total DLP 97mGy-cm. FINDINGS: Raw images were reviewed. The stress perfusion study showed no significant perfusion abnormality. There is a slight reduction in tracer uptake in the inferior wall and that could be artifactual. Also there is improvement with CT attenuation correction. The gated study shows normal LV systolic function with calculated LVEF of 62%. LV cavity is normal in size. The gated study shows normal wall thickening and contraction of segments. Resting study shows mildly reduced tracer uptake in the inferior wall, similar to stress acquisition. Gating at rest reveals normal wall motion with ejection fraction at 52%, but visually much higher. The findings are consistent with mild fixed inferior defect which is likely artifactual. No reversible defects. NM/NM cardiolite stress test IMPRESSION: 1. Myocardial perfusion imaging study shows no clear evidence of any ischemia or infarction. Likely normal perfusion. 2. Gated LVEF is 62% during stress and 52% during rest but visually much higher than that. 3. Transient ischemic dilatation not present. EKG component of the test reported separately.
--- NOTE | 2022-10-09 07:43 | CA_ITS ---
Acquisition Time: 2022-10-09 07:45:08 Total Exercise Time: 00:05:10 Test Indications: CHEST PAIN Medications: ASA ATORVASTATIN DILTIAZEM HYDRALAZINE HCTZ LISINOPRIL Protocol: DONNA Max HR: 137 BPM 96% of Pred: 142 BPM Max BP: 198/062 mmHG Max Work Load: 4.6 METS Exercise stress test exercise 5 min 10 sec of Donna protocol stage 1 held achieving 95% MPHR, with moderate SOB, 9/10 chest tightness at the end of exercise, with isolated PVCs and PACs, and one ventricular cuplet, with resting hypertension and normotensive response, without EKG changes . Chest tightness resolved 10 minutes in recovery to 0/10. Nuclear images pending. Test reviewed with Dr. Luque. Baseline EKG has lateral downsloping ST and that is worse with exercise; could indicate ischemia. Referred By: Misha Loza Overread By: GRETA LUQUE
== END ==
LOC: HO.CARD 07:40
PROVIDERS: PCP Internal Medicine; Visit Provider Internal Medicine Cardiovascular Disease
DX: R07.9 Chest pain, unspecified (principal)
CPT/HCPCS: 78452; 93017; A9500

== ENCOUNTER → 2022-10-09 07:43 | Outpatient (BNV) | payer MEDICARE, MEDICAID, SELFPAY | PROVIDERS: PCP Internal Medicine; Visit Provider Internal Medicine | DX: R07.9 Chest pain, unspecified (principal) | CPT/HCPCS: 78452; 93016; 93018 ==

== ENCOUNTER 2022-10-14 13:28 | Outpatient (REF) | payer MEDICARE, MEDICAID, SELFPAY ==
--- NOTE | ~2022-10-14 | US_ITS ---
EXAMINATION: US EXTRACRANIAL CAROTID DUPLEX, BILATERAL CLINICAL INFORMATION: Status post right endarterectomy. COMPARISON: Carotid Doppler 07/01/2021. Neck CT 07/18/2021: A 1.8 cm ovoid somewhat cystic-appearing subcutaneous mass overlying the lateral aspect of the right platysma. Differential diagnostic considerations include sebaceous cyst (epidermal inclusion cyst), cystic lymph node or less likely the remnant of a lymphatic malformation. Suggest tissue diagnosis. TECHNIQUE: Real-time ultrasound and Doppler techniques (integrating B-mode 2-D vascular images, Doppler spectral analysis and color-flow Doppler imaging) were utilized to interrogate the extracranial carotid arteries, the vertebral arteries and proximal subclavian arteries bilaterally. The degree of stenosis is determined by criteria similar to NASCET. FINDINGS: Right Side: Incidental note made in the right neck of the complex cyst versus a lymph node previously seen measuring 1.9 x 1.0 cm with an adjacent smaller area measuring 1.2 x 0.6 cm -similar findings were present on the 07/01/2021 study. 1. There is moderate atherosclerotic plaque seen in the bifurcation/proximal ICA region. 2. The common carotid artery PSV proximally is 128 cm/s and distally 108 cm/s. 3. The proximal internal carotid artery velocities are 202 cm/s systolic and 43 cm/s diastolic. 4. The proximal external carotid artery PSV is 311 cm/s. 5. The vertebral artery shows antegrade flow. 6. The subclavian artery waveforms are normal. Left Side: 1. There is moderate atherosclerotic plaque seen in the bifurcation/proximal ICA region. 2. The common carotid artery PSV proximally is 99 cm/s and distally 85 cm/s. 3. The proximal internal carotid artery velocities are 76 cm/s systolic and 20 cm/s diastolic. Although this cannot be accurately graded with NASCET criteria, a cdiiibht-ao-jrziuh stenosis is probably present in the mid left ICA with elevated velocities of 204 cm/s and a large amount of plaque present in this region. On the prior 07/18/2021 CT scan of the neck, a severe stenosis can be seen in this area with calcification filling most of the lumen (3:257). 4. The proximal external carotid artery PSV is 427 cm/s. 5. The vertebral artery shows antegrade flow. 6. The subclavian artery waveforms are normal. US/US carotid duplex BI IMPRESSION: 1. RIGHT: Moderate, hemodynamically significant stenosis of the proximal right internal carotid artery corresponding to a 50-79% stenosis by velocity criteria. There is a marked external carotid artery stenosis again noted. 2. LEFT: Minimal, non-hemodynamically significant stenosis of the proximal left internal carotid artery corresponding to a 0-49% stenosis by velocity criteria. More severe, probably significant stenosis in the mid ICA as described above. There is a marked external carotid artery stenosis again noted. 3. There is no change in the category severity of disease when compared to the previous study dated 07/01/2021. 4. Neck mass described above is unchanged.
== END 2022-10-14 13:29 | disposition home or self-care (01) ==
LOC: HO.US 13:28
PROVIDERS: PCP Internal Medicine; Visit Provider Internal Medicine Cardiovascular Disease
DX: R09.89 Other specified symptoms and signs involving the circulatory and respiratory systems (principal)
CPT/HCPCS: 93880

== ENCOUNTER 2022-11-19 08:57 | Outpatient (REF) | payer MEDICARE, MEDICAID, SELFPAY | END 2022-11-19 08:58 | disposition home or self-care (01) | LOC: HO.US 08:57 | PROVIDERS: Visit Provider Internal Medicine | DX: Z13.89 Encounter for screening for other disorder (principal) ==

== ENCOUNTER 2024-06-23 13:14 | Outpatient (AMB) | payer MEDICARE, MEDICAID, SELFPAY ==
--- NOTE | 2024-06-23 13:35 | AM.OFFVISMDC ---
Intake Vital Signs 06/23/24 13:37 Height 5 ft 9 in Weight 200 lb BMI 29.5 BP 180/70 H Blood Pressure Location Lt brachial Position Sitting Intake Visit Reasons: AWV Intake Note: Patient here for an annual wellness visit Reducing Salon Attendant Required: No Accompanied by: Self / Same As Patient Allergies No Known Allergies Allergy (Mild, Verified 06/23/24 13:49) NOT APPLICABLE Medication List - Last Reconciled 06/23/24 by Montserrat Goldman MD aspirin (Adult Low Dose Aspirin) 81 mg PO DAILY atorvastatin 40 mg PO BEDTIME 90 days cholecalciferol (vitamin D3) (Vitamin D3) 25 mcg PO DAILY diclofenac sodium 1% (Voltaren Arthritis Pain) 4 grams topical QID PRN diltiazem HCl CD 240 mg PO DAILY 90 days hydralazine 50 mg PO TID 30 days hydrochlorothiazide 25 mg PO DAILY 90 days lisinopril 40 mg PO DAILY sennosides (senna) 8.6 mg PO BEDTIME PRN 90 days HPI HPI Comments History of Present Illness Details The patient is an 78-year-old male presenting for his medicare annual wellness exam with a primary reason for visit involving vaccination and health maintenance. The patient is concerned about pneumonia vaccination and has agreed to receive it during this visit. He is also managing essential hypertension with multiple antihypertensive medications, including Diltiazem, Hydralazine, Hydrochlorothiazide, and Lisinopril. He reports a history of elevated blood pressure, which he manages through prescribed medication and garlic supplements. The patient states that he has a history of hyperlipidemia controlled with atorvastatin 40 mg daily and takes an 81 mg aspirin daily as part of his preventive regimen. He also has an abdominal aortic aneurysm and last ultrasound was done 2022 therefore I will repeated. He also has a subcutaneous mass on neck and will have an ultrasound referred to surgery for evaluation. The patient mentions prior surgeries, including prostate surgery and bilateral knee replacements, which influence his mobility. He acknowledges symptoms related to osteoarthritis, affecting his activity levels but does not specify specific joint issues beyond mentioning the knees. Additionally, he reports a prior surgical intervention for constipation. There is occasional tobacco use, with smoking occurring during episodes of anxiety. The patient's father did not suffer from significant illnesses until late in life. The patient consumes alcohol sparingly, with beer intake limited to a few times a month. He lives independently, managing daily activities without assistance and is fully oriented despite errors in recalling the current year. His cognitive assessment reflects a minor issue with immediate recall, but he can spell words backward and identify objects appropriately. [facility] handed to patient. [place] of care reviewed. - Ordered pneumonia vaccination during the visit. - Discussed the continuation of current medications including aspirin, atorvastatin, and antihypertensives. - Advised regular exercise and weight management to support cardiovascular health. - Recommended follow-up testing and lab work due to lapse in previous evaluations. [facility] Medical History (Updated 06/23/24 @ 14:41 by Montserrat Goldman MD) Impaired glucose tolerance Dyslipidemia Essential hypertension Surgical History History of prostate surgery History of knee replacement Family History Father No problems noted. Mother No problems noted. Social History Housing: House Alcohol intake: current Alcohol intake frequency: a few times a month Alcohol type: beer Patient Tobacco Use Status: Current someday Tobacco user Tobacco use type: Cigarette Cigarettes Per Day: 3 e-Cigarette/Vaping Use: Never Used Second Hand Smoke Exposure: No service: No Current occupational status: retired and disabled Cognitive needs: No Hearing needs: No Vision needs: Yes (glasses) Questionnaire Medicare Wellness Checkup What is your age?: 78 or older What gender do you identify with?: male During the past 4 weeks, how much have you been bothered by emotional problems such as feeling anxious, depressed, irritable, sad or downhearted, and blue?: slightly During the past 4 weeks, has your physical & emotional health limited your social activities with family, friends, neighbors, or groups?: not at all During the past 4 weeks, how much bodily pain have you generally had?: moderate pain During the past 4 weeks, was someone available to help you if you needed & wanted help?: no, not at all During the past 4 weeks, what was the hardest physical activity you could do for at least 2 minutes?: moderate Can you get to places out of walking distance without help? (For eg., can you travel alone on buses, taxis or drive your car?): Yes Can you go shopping for groceries or clothes without someone's help?: Yes Can you prepare your own meals?: Yes Can you do your housework without help?: Yes Because of any health problems, do you need the help of another person with your personal care needs such as eating, bathing, dressing or getting around the house?: No Can you handle your own money without help?: Yes During the past 4 weeks, how would you rate your health in general?: fair During the past 4 weeks how have things been going for you?: pretty well Are you having difficulties driving your car?: no Do you always fasten your seat belt when you are in a car?: yes, usually During past 4 weeks, have you been bothered by the following: never: Falling or dizzy when standing up, Sexual problems?, Trouble eating well?, Teeth or denture problems?, Problems using the telephone? and Tiredness or fatigue? Have you fallen 2 or more times in the past year?: No Are you afraid of falling?: No Are you a smoker?: yes, but I'm not ready to quit During the past 4 weeks, how many drinks of wine, beer, or other alcoholic beverages did you have?: 2-5 drinks per week Do you exercise for about 20 minutes 3 or more times a week?: yes, some of the time Have you been given information to help with the following?: no: Hazards in your house that might hurt you? and no: Keeping track of your medications? How often do you have trouble taking medicines the way you have been told to take them?: I always take medicine as prescribed How confident are you that you can control & manage most of your health problems?: very confident What is your race?: or origin or descent Mini Mental State Exam (MMSE) Orientation What is the (year) (season) (date) (day) (month)?: year, season, date, day and month Where are we (state) (county) (town or city) (hospital) (floor)?: state, county, town or city, hospital/clinic and floor Registration Name of 3 unrelated objects clearly and slowly, then ask patient to repeat all 3 of them. (1st repeat determines score. Make sure they can repeat all three): object 1, object 2 and object 3 Attention & Calculation (CHOOSE ONE) Spell WORLD backwards (DLROW): 5 letters Language Show patient a wristwatch & ask what it is. Repeat for pencil.: watch and pencil Ask the patient to repeat the phrase 'No ifs, ands, or buts' after you.: correct Ask the patient to 'take a piece of paper with their right hand' 'fold paper in half' 'place paper on floor': take paper in right hand, fold paper in half and place paper on floor Print the sentence 'CLOSE YOUR EYES' on a piece. If patient actually closes eyes then score.: followed written direction Ask patient to copy figure of intersecting pentagons exactly. Score if all 10 angles & 2 intersects are included.: all 10 angles present & 2 are intersected Score Score: 26 Activity of Daily Living Bathing - sponge bath, tub bath or shower: receives no assistance (gets in/out by self, if usual bathing means Dressing - getting clothes from closets & drawers, including inner/outer garments & fasteners.: gets clothes & gets completely dressed without help Toileting - going to the 'toilet room' for urine/bowel elimination & cleaning self/arranging clothes: goes to toilet room, cleans self, arranges clothes without help Transfer: moves in & out of bed and chair without help (may use support object) Continence: controls urination/bowel movements completely by self Feeding: feeds self without help Total Score: 0 Information obtained from: patient Using telephone: independent Traveling: independent Shopping: independent Preparing meals: independent Housework: independent Taking medicine: independent Managing money: independent PHQ-9 Over the last 2 weeks, how often have you been bothered by any of the following problems? 1. Little interest or pleasure in doing things: not at all 2. Feeling down, depressed, or hopeless: not at all 3. Trouble falling or staying asleep, or sleeping too much: not at all 4. Feeling tired or having little energy: not at all 5. Poor appetite or overeating: not at all 6. Feeling bad about yourself - or that you are a failure or have let yourself or your family down: not at all 7. Trouble concentrating on things, such as reading the newspaper or watching television: not at all 8. Moving or speaking so slowly that other people could have noticed. Or the opposite - being so fidgety or restless that you have been moving around a lot more than usual: not at all 9. Thoughts that you would be better off or of hurting yourself in some way: not at all Total score: 0 Depression Screening Interpretation: Negative Depression Screening Done: Yes 12511 - PHQ-9 Billing: Yes Source: Developed by Drs. Nik Riley, Kevin Perry and colleagues, with an educational wilver from [employer]. Fall Risk Assessment Fall Risk Assessment Fall risk assessment: No Falls in past year AUDIT C Alcohol Use Questionnaire (AUDIT-C) 1. How often do you have a drink containing alcohol?: 2-4 times a month 2. How many drinks containing alcohol do you have on a typical day when you are drinking?: 1 or 2 3. How often do you have six or more drinks on one occasion?: Never Total Score: 2 Score Reviewed/Action Taken: No BUCKY-7 AMB Questionnaire BUCKY-7 Date BUCKY - 7 assessed: 06/23/24 Feeling nervous, anxious, or on edge: 0 = Not at all Not being able to stop or control worryin = Not at all Worrying too much about different things: 0 = Not at all Trouble relaxin = Not at all Being so restless that it is hard to sit still: 0 = Not at all Becoming easily annoyed or irritable: 0 = Not at all Feeling afraid as if something awful might happen: 0 = Not at all Total BUCKY-7 score (0-4 normal; 5-9 mild; 10-14 moderate; 15-21 severe): 0 Source: Developed by Drs. Nik Riley, Kevin Perry and colleagues, with an educational wilver from [employer]. BUCKY-7 Assessment Billing BUCKY-7 Assessment Tool: BUCKY-7 Assessment 12874 Thrive Questionnaire Date Thrive assessed: 06/23/24 I am a: Patient What is your living situation today?: I have a steady place to live Within the past 12 months, did the food you bought not last and you didn't have the money to get more?: Never true Within the past 12 months, did you worry whether your food would run out before you got money to buy more?: Never true Do you have trouble paying for medicines?: No Do you have trouble getting transportation to medical appointments?: No Do you have trouble paying your heating and electricity bill?: No Do you have trouble taking care of your child, family member or friend?: No Do you have trouble with day-to-day activities such as bathing, preparing meals, shopping, managing finances, etc.?: No Are you currently unemployed and looking for a job?: No Are you interested in more education?: No Please select the resources that you would like help with: None Currently or been in a relationship where the following occur: No concerns reported THRIVE Score: 0 Review of Systems Const All systems reviewed & are unremarkable except as noted in HPI and below Card Denies chest pain at rest, Denies chest pain with activity, Denies edema, Denies irregular heart rhythm, Denies claudication, Denies dyspnea, Denies dyspnea on exertion, Denies orthopnea, Denies paroxysmal nocturnal dyspnea and Denies slow heart rate Resp Denies cough, Denies dyspnea and Denies dyspnea on exertion GI Denies abdominal pain, Denies change in bowel habits, Denies excessive flatus, Denies nausea and Denies vomiting Neuro Denies confusion Psych Denies confusion Physical Exam Vital Signs: Last Vital Signs BP 180/70 H 06/23/24 13:37 BMI result Body Mass Index 29.5 Const General: No confusion Orientation/consciousness: patient oriented x3 and No confusion Resp Effort & Inspection: normal respiratory effort Auscultation: clear to auscultation bilaterally Cardio Jugular venous distension: no JVD Rate: regular rate Rhythm: regular rhythm Heart sounds: S1 normal heart sound present and S2 normal heart sound present Neuro General: patient oriented x3, no focal motor deficits and No confusion Romberg Test: Negative Extrem General: Yes full ROM Psych Appearance: grossly normal Immunizations pneumoc 20-chari conj-dip cr(PF) 0.5 mL IM syringe Performing Provider: Montserrat Goldman MD [facility] Administered by: TONEY Lewis on 06/23/24 14:11 Dose Route Admin Location Dispensed Lot Number Expiration Date [facility] [employer] 0.5 mL IM Left Deltoid 0.5 mL [id number] 04/09/25 [employer] VIS Given Date VIS Provided VIS Publication Date 06/23/24 Single Vaccine 22 Eligibility Eligibility Date Funding Source Not [facility] Eligible 06/23/24 Private Assessment & Plan Assessment & Plan (1) Encounter for Medicare annual wellness exam: Code(s): Z00.00 - Encounter for general adult medical examination without abnormal findings (2) AAA (abdominal aortic aneurysm) without rupture: Code(s): I71.40 - Abdominal aortic aneurysm, without rupture, unspecified (3) Subcutaneous mass of neck: Code(s): R22.1 - Localized swelling, mass and lump, neck Plan The plan includes administering the pneumonia vaccine today and continuing to manage the patient's essential hypertension and hyperlipidemia with existing medications. Scheduled laboratory tests will ensure his overall health status and monitoring of these chronic conditions. He will continue to utilize his hypertensive medications and report any significant changes in blood pressure or symptoms of hypotension. Osteoarthritis management will focus on maintaining joint function, with lifestyle modifications encouraged to maintain optimal mobility and weight. Given his occasional tobacco use, emphasized reduction or cessation discussions are integral to reducing cardiovascular risk factors. The patient will follow up to assess blood pressure readings and review laboratory analyses once completed. Patient was informed and verbally consented to the use of an ambient scribe for clinic note documentation during this visit. I discussed the importance of receiving the pneumonia vaccine today and overall health maintenance with the patient. We reviewed his extensive antihypertensive medication regimen and confirmed his understanding of the need for adherence to manage essential hypertension effectively. I emphasized the role of lifestyle modifications, including regular physical activity and weight management, to support cardiovascular health. We also discussed reducing tobacco use, given the associated health risks. I recommended updated laboratory testing, given it had been two years since his last assessment, and he agreed to return for follow-up discussions regarding these results. I also addressed the importance of cognitive health, encouraging activities that support sharpness and accuracy in recalling information. I noted his knowledge of health care proxy responsibilities, confirming his sons? role in decisions should it become necessary. Orders: Orders Pneumococcal 20 Immunization Today Z23 - Encounter for immunization US soft tiss head and/or neck Today R22.1 - Localized swelling, mass and lump, neck Comprehensive [place]. Panel Fast Today I10 - Essential (primary) hypertension Lipid Panel Today E78.5 - Hyperlipidemia, unspecified Vitamin D 25-OH Total Today E55.9 - Vitamin D deficiency, unspecified Complete Blood Count Auto Diff Today R22.1 - Localized swelling, mass and lump, neck US abdominal aortic aneurysm Today I71.4 - Abdominal aortic aneurysm, without rupture Referrals General Surgery Referral R22.1 - Localized swelling, mass and lump, neck Patient Instructions: - Receive the pneumonia vaccine today. - Continue taking medications as prescribed for blood pressure and cholesterol. - Schedule and complete lab tests. - Maintain physical activity and manage weight. - Avoid cigarettes to reduce cardiovascular risks. - Return for follow-up in three weeks for blood pressure check and discussion of lab results. - Follow established healthcare proxy processes with your son for medical decisions if needed. Quality Reporting (2019) Fall Risk Screening ([facility] 139) Fall risk assessment: No Falls in past year Depression/Bipolar (159/160/161/177) PHQ-9: Total score: 0 Coding Level of Care Code Medicare First (G0438) Est Pt Level 3 (91545) Diagnoses Encounter for Medicare annual wellness exam Z00.00 AAA (abdominal aortic aneurysm) without rupture I71.40 Subcutaneous mass of neck R22.1 Additional Codes BUCKY-7 Assessment Billing - BUCKY-7 Assessment Tool: BUCKY-7 Assessment 47550 ([id number]) PHQ-9 - 84838 - PHQ-9 Billing: Yes ([id number]) Time Spent (min) 38 Advance Care Planning Advance Care Planning discussion: Exists, not on file Date of discussion: 06/23/24 Who was present: patient and me Forms completed: Health Care Proxy
[2024-06-23 13:37] VITALS: BP 180/70; BMI 29.5
--- OUTSIDE RECORDS SUMMARY | 2024-06-23 16:13 | XMS_ITS | Clinical Summary ---
Author Organization [facility] Address [address] [place] [address] Phone Care Team Providers Care [employer] Name Role Phone Montserrat Goldman MD Primary Care Provider Allergies No known active allergies Medications No known medications Active Problems No known active problems Medical History Medical History Date Comments Hypertension Social History Tobacco Use Types Packs/Day Years Used Date Smoking Tobacco: Former Sex and Gender Information Value Date Recorded Sex Assigned at Not on file Legal Sex Male 9:43 PM EST Gender Identity Not on file Sexual Orientation Not on file Obstetrics History Last Filed Vital Signs Vital Sign Reading Time Taken Comments Blood Pressure 173/88 03/02/2024 2:16 PM EST Pulse 86 03/02/2024 2:16 PM EST Temperature 36.8 ??C (98.2 ??F) 03/02/2024 11:[address] Respiratory Rate 16 03/02/2024 11:30 AM EST Oxygen Saturation 94% 03/02/2024 2:16 PM EST Inhaled Oxygen Concentration - - Weight 84.8 kg (187 lb) 03/02/2024 11:30 AM EST Height 175.3 cm (5' 9 ) 03/02/2024 11:30 AM EST Body Mass Index 27.62 03/02/2024 11:30 AM EST Plan of Treatment Health Maintenance Due Date Last Done Comments Pneumococcal Vaccine: 50+ Years (1 of 1 - PCV) 10/27/1993 Zoster Vaccines (1 of 2) 10/27/1993 RSV Immunization Adult Patients (1 - 1-dose 75+ series) 10/27/2018 Cholesterol Screening (Lipid Panel) 02/08/2022 Depression Screening 02/08/2022 Falls Risk Assessment 02/08/2022 Medicare Annual Wellness Visit 02/08/2022 Social Influencers of Health Screening 02/08/2022 DTaP,Tdap,and Td Vaccines (2 - Td or Tdap) 03/07/2032 03/07/2022 COVID-19 Vaccine Completed 01/02/2024, 11/2022, 09/20/2021, Additional history exists Influenza Vaccine Completed 01/02/2024, 12/09/2017 HIB Vaccines Aged Out No longer eligi ble based on patient's age to complete this topic HPV Vaccines Aged Out No longer eligi ble based on patient's age to complete this topic Hepatitis A Vaccines Aged Out No long er eligible based on patient's age to complete this topic Hepatitis B Vaccines Aged Out No long er eligible based on patient's age to complete this topic IPV Vaccines Aged Out No longer eligi ble based on patient's age to complete this topic MMR Vaccines Aged Out No longer eligi ble based on patient's age to complete this topic Meningococcal ACWY Vaccine Aged Out N o longer eligible based on patient's age to complete this topic Meningococcal B Vaccine Aged Out No l onger eligible based on patient's age to complete this topic RSV Immunization Patients Under 20 months Aged Out No longer eligible based on patient's age to complete this topic Varicella Vaccines Aged Out No longer eligible based on patient's age to complete this topic Insurance MEDICAID - [place] MEDICARE Care Teams [employer] Relationship Specialty Start Date End Date Montserrat Goldman MD [address] [place] [address] , [address] [place] [address] Physician Associ D/B/A: [facility] TARYN Mendosa PCP - General 05/27/21
--- OUTSIDE RECORDS SUMMARY | 2024-06-23 16:13 | XMS_ITS | Clinical Summary ---
Author Organization [facility] [employer] [facility] [employer] Address [address] [place] [address] [address] [place] [address] Care Team Providers Care Real Estate Representative Name Role Phone Unavailable Primary Care Provider Unavailabl e Immunizations Name Administration Dates Next Due Influenza, High Dose Seasonal, Preservative Free 12/09/2017 Moderna Covid-19 Vaccine 6+ Bivalent 04/17/2022 TD (adult), 2 Lf tetanus tox oid, preservative free, adsorbed 03/07/2022 Social History Tobacco Use Types Packs/Day Years Used Date Smoking Tobacco: Never Assessed Sex and Gender Information Value Date Recorded Sex Assigned at Male 01/06/2022 10:16 AM EDT Legal Sex Male 10:16 AM EDT Gender Identity Choose not to disclose 10:16 AM EDT Sexual Orientation Choose not to disclose 2021 10:16 AM EDT Plan of Treatment Health Maintenance Due Date Last Done Comments Depression Screening 1943 Lipid Panel 1943 SDOH Screening 1943 Alcohol/Substance Use Screening 1955 Tobacco Screening 1955 Pneumococcal Vaccine: 50+ Years (1 of 1 - PCV) 10/27/1993 Zoster Vaccines (1 of 2) 10/27/1993 RSV Patients and Patients Aged 60 years or older (1 - 1-dose 75+ series) 10/27/2018 DTaP/Tdap/Td Vaccines (1 - Tdap) 03/08/2022 03/07/2022 COVID-19 Vaccine (6 - season) 2023 04/17/2022, 09/20/2021, 02/26/2021, Additional history exists Influenza Vaccine (#1) 2023 12/09/2017 HIB Vaccines Aged Out No longer [...] patient's age to complete this topic Meningococcal Vaccine Aged Out No zach juliano eligible based on patient's age to complete this topic RSV under 20 months Aged Out No longe r eligible based on patient's age to complete this topic Rotavirus Vaccines Aged Out No longer eligible based on patient's age to complete this topic Insurance MEDICARE [facility]
== END 2024-06-23 14:15 | disposition home or self-care (01) ==
LOC: HO.HMCH 13:14
PROVIDERS: PCP Internal Medicine; Visit Provider Internal Medicine
DX: Z00.00 Encounter for general adult medical examination without abnormal findings (principal); I71.40 Abdominal aortic aneurysm, without rupture, unspecified; R22.1 Localized swelling, mass and lump, neck; Z23 Encounter for immunization

== ENCOUNTER → 2024-06-23 13:14 | Outpatient (BNVA) | payer MEDICARE, MEDICAID, SELFPAY | PROVIDERS: PCP Internal Medicine; Visit Provider Internal Medicine | DX: Z00.00 Encounter for general adult medical examination without abnormal findings (principal); Z23 Encounter for immunization; I71.40 Abdominal aortic aneurysm, without rupture, unspecified; R22.1 Localized swelling, mass and lump, neck; I10 Essential (primary) hypertension; E78.5 Hyperlipidemia, unspecified; Z79.82 Long term (current) use of aspirin; Z79.899 Other long term (current) drug therapy | CPT/HCPCS: 90471; 90677; 96127; 99212 ==

== ENCOUNTER → 2024-07-07 12:20 | Outpatient (BNVA) | payer MEDICARE, MEDICAID, SELFPAY | PROVIDERS: PCP Internal Medicine ==

== ENCOUNTER → 2024-07-21 11:03 | Outpatient (BNVA) | payer MEDICARE, MEDICAID, SELFPAY | PROVIDERS: PCP Internal Medicine ==

== ENCOUNTER 2024-07-28 13:47 | Outpatient (REF) | payer MEDICARE, MEDICAID, SELFPAY ==
--- NOTE | ~2024-07-28 | US_ITS ---
CLINICAL HISTORY: R22.1 - Localized swelling, mass and lump, neck US neck nonvascular Comparison: None Findings: In the right neck in the area of palpable concern is an oval circumscribed nodule in horizontal orientation with posterior acoustic enhancement. This may represent a sebaceous cyst without a sinus tract measuring 2.4 x 1.1 x 2.3 cm differentials include a pathologically enlarged lymph node. This is superficial to the sternocleidomastoid muscle. In the posterior aspect of the neck on the right is a probable complex sebaceous cyst just below the dermis measuring 1.3 x 0.8 cm. Follow-up until complete resolution is recommended. In the left neck behind the ear is a palpable oval circumscribed nodule in horizontal orientation with posterior acoustic enhancement measuring 1.8 x 0.7 x 1.3 cm. This may represent a sebaceous cyst without a sinus tract or a pathologic enlarged lymph node. Impression: Bilateral subcutaneous circumscribed nodules in horizontal orientation which are palpable may represent sebaceous cysts without a sinus track or pathologically enlarged lymph nodes. Probable sebaceous cyst with a sinus tract right posterior mid neck. Clinical correlation is advised. CT of the neck with IV contrast may be of further diagnostic value. This document has been electronically signed by: Marino Naqvi MD on 07/29/2024 12:06:51
--- OUTSIDE RECORDS SUMMARY | 2024-07-28 13:57 | XMS_ITS | Clinical Summary ---
Author Organization [facility] Address [address] [place] [address] Phone Care Team Providers Care Real Estate Underwriter Name Role Phone Montserrat Goldman MD Primary Care Provider [phone] Allergies No known active allergies Medications No [...] 02/08/2022 Social Influencers of Health Screening 02/08/2022 COVID-19 Vaccine ( season) 2024 01/02/2024, 04/17/2022, 09/20/2021, Additional history exists DTaP,Tdap,and Td Vaccines (2 - Td or Tdap) 03/07/2032 03/07/2022 Influenza Vaccine Completed 01/02/2024, 12/09/2017 HIB Vaccines [...] Insurance MEDICAID - [place] MEDICARE Care Teams Real Estate Underwriter Relationship Specialty Start Date End Date Montserrat Goldman MD 2 [facility] , [address] [place] [address] Physician Associ [facility]A: [facility] TARYN Mendosa PCP - General 05/27/21
== END 2024-07-28 13:48 | disposition home or self-care (01) ==
LOC: HO.US 13:47
PROVIDERS: PCP Internal Medicine; Visit Provider Internal Medicine
DX: R22.1 Localized swelling, mass and lump, neck (principal)
CPT/HCPCS: 76536

== ENCOUNTER 2024-08-08 08:40 | Outpatient (REF) | payer MEDICARE, MEDICAID, SELFPAY ==
[2024-08-08 08:49] LABS: MANUAL DIFF FLAG NO
[2024-08-08 09:11] LABS: Basophils Absolute Auto 0.1 X10*3/uL (0.0-0.2); Basophils Percent Auto 0.9 % (0-2); Eosinophils Absolute Auto 0.1 X10*3/uL (0.0-0.4); Eosinophils Percent Auto 1.8 % (0-4); Hematocrit 46.9 % (42.0-52.0); Hemoglobin 15.8 g/dl (14.0-18.0); Imm Gran Abs Auto 0.02 X10*3/uL (0.00-0.03); Imm Gran Pct Auto 0.3 % (0.0-0.4); Lymphocytes Percent Auto 25.1 % (20-40); Mean Corpuscular HGB Conc 33.7 g/dl (31.0-36.0); Mean Corpuscular Hemoglobin 31.1 pg (27.0-33.0); Mean Corpuscular Volume 92.3 fL (80.0-98.0); Mean Platelet Volume 9.2 fL (9.4-12.4); Monocytes Absolute Auto 1.2 X10*3/uL (0.1-1.2); Monocytes Percent Auto 14.8 % (2-11); Neutrophils Absolute Auto 4.6 x10*3/uL (2.0-8.3); Neutrophils Percent Auto 57.1 % (45-73); Platelet Count 273 X10*3/uL (160-400); Red Blood Count 5.08 X10*6/uL (4.60-5.80); Red Cell Distribution Width 13.5 % (11.0-16.0)
[2024-08-08 09:56] LABS: Alanine Aminotransferase 40 U/L (0-40); Albumin Level 4.4 g/dL (3.5-5.0); Alkaline Phosphatase 69 U/L (39-117); Anion Gap 13 (12-20); Aspartate Amino Transferase 35 U/L (5-37); Bilirubin Total 0.5 mg/dL (0.0-1.0); Blood Urea Nitrogen 23 mg/dL (9-16); Calcium 9.4 mg/dL (8.4-10.2); Carbon Dioxide 28 mmol/L (22-29); Chloride 105 mmol/L (96-108); Cholesterol 198 mg/dL (<200); Estimated Glomerular Filt Rate > 60; Glucose Fasting 116 mg/dL (60-99); HDL Cholesterol 54 mg/dL (>40); LDL Cholesterol Calculated 128 mg/dL (<100); Potassium 4.2 mmol/L (3.3-5.1); Sodium 142 mmol/L (135-145); Total Protein 7.1 g/dL (6.5-8.0); Triglycerides 82 mg/dL (<150)
[2024-08-08 09:59] LABS: Vitamin D 25-OH Total 24.1 ng/mL (>30)
== END 2024-08-08 08:41 | disposition home or self-care (01) ==
LOC: HO.LAB 08:40
PROVIDERS: PCP Internal Medicine; Visit Provider Internal Medicine
DX: I10 Essential (primary) hypertension (principal); R22.1 Localized swelling, mass and lump, neck; E78.5 Hyperlipidemia, unspecified; E55.9 Vitamin D deficiency, unspecified
CPT/HCPCS: 36415; 80053; 80061; 82306; 85025

== ENCOUNTER 2024-08-11 09:15 | Outpatient (REF) | payer MEDICARE, MEDICAID, SELFPAY ==
--- NOTE | ~2024-08-11 | US_ITS ---
CLINICAL HISTORY: I71.4 - Abdominal aortic aneurysm, without rupture US ABDOMEN (AAA) Comparison: None Findings: Aorta proximal 2.1 x 2.3 cm. Aorta mid 1.9 x 1.9 cm. Aorta distal 3.7 x 4.8 cm. Right common iliac artery 1.4 x 1.6 cm. Left common iliac artery 1.4 x 1.5 cm. IMPRESSION: 1. 3.7 x 4.8 cm distal abdominal aortic aneurysm. This document has been electronically signed by: Sulma Summers DO on 08/11/2024 13:58:28
== END 2024-08-11 09:16 | disposition home or self-care (01) ==
LOC: HO.US 09:15
PROVIDERS: PCP Internal Medicine; Visit Provider Internal Medicine
DX: I71.40 Abdominal aortic aneurysm, without rupture, unspecified (principal)
CPT/HCPCS: 76706

== ENCOUNTER → 2024-08-11 09:17 | Outpatient (BNV) | payer MEDICARE, MEDICAID, SELFPAY | PROVIDERS: PCP Internal Medicine; Visit Provider Radiology Diagnostic Radiology | DX: I71.40 Abdominal aortic aneurysm, without rupture, unspecified (principal) | CPT/HCPCS: 76706 ==

== ENCOUNTER 2024-08-18 11:59 | Outpatient (AMB) | payer MEDICARE, MEDICAID, SELFPAY ==
--- NOTE | 2024-08-18 13:26 | MHC.OFFVIS ---
Vital Signs 08/18/24 13:35 Height 5 ft 9 in Weight 199 lb BMI 29.4 BP 136/65 Blood Pressure Location Rt brachial Position Sitting Pulse 89 Intake Visit Reasons: Mass, lump~ neck Intake Note: Patient referred by pcp Dr. Miky Goldman for mass on Rt and left neck. Rt side present 1yr, Lt side X6m. Patient c/o: enlarging. Denies pain, tenderness. Interventional Radiology Rn Required: No Accompanied by: Self / Same As Patient Allergies No Known Allergies Allergy (Mild, Verified 08/18/24 13:27) NOT APPLICABLE Medication List - Last Reconciled 08/18/24 by Clint Austin MD aspirin (Adult Low Dose Aspirin) 81 mg PO DAILY atorvastatin 40 mg PO BEDTIME 90 days cholecalciferol (vitamin D3) (Vitamin D3) 25 mcg PO DAILY diclofenac sodium 1% (Voltaren Arthritis Pain) 4 grams topical QID PRN diltiazem HCl CD 240 mg PO DAILY 90 days hydralazine 100 mg PO TID 90 days hydrochlorothiazide 25 mg PO DAILY 90 days lisinopril 40 mg PO DAILY sennosides (senna) 8.6 mg PO BEDTIME PRN 90 days HPI HPI Mass, lump~ neck: Details: 78-year-old male referred for lumps on his neck. He said he has had this lump on the right neck for about over a year now. He has another smaller lump on the left neck posteriorly for a few months. He says both of these seemed to be increasing in size. He denies any drainage or skin changes. He says he is healthy overall. Aside from hypertension, he said he does not have any other medical problems. [facility] Medical History (Updated 08/18/24 @ 13:53 by Clint Austin MD) Multiple masses of neck Impaired glucose tolerance Dyslipidemia Essential hypertension Surgical History History of prostate surgery History of knee replacement Family History Father No problems noted. Mother No problems noted. Social History Housing: House Alcohol intake: current Alcohol intake frequency: a few times a month Alcohol type: beer Patient Tobacco Use Status: Current someday Tobacco user Tobacco use type: Cigarette Cigarettes Per Day: 3 e-Cigarette/Vaping Use: Never Used Second Hand Smoke Exposure: No service: No Current occupational status: retired and disabled Cognitive needs: No Hearing needs: No Vision needs: Yes (glasses) Review of Systems Const Denies chills and Denies fever(s) Card Denies chest pain, Denies dyspnea and Denies dyspnea on exertion Resp Denies cough, Denies dyspnea and Denies dyspnea on exertion GI Denies hematochezia and Denies change in bowel habits Denies hematuria and Denies difficulty urinating Musc Denies back pain and Denies limited range of motion Neuro Denies focal weakness and Denies convulsions Psych Denies depression and Denies mood swings Physical Exam Vital Signs: Last Vital Signs Pulse 89 08/18/24 13:35 BP 136/65 08/18/24 13:35 BMI result Body Mass Index 29.4 Const General: comfortable and no acute distress Orientation/consciousness: patient oriented x3 Neck Other: Right neck laterally with note of a smooth subcutaneous mass, about 2.3 cm, mobile Left neck posterolaterally is note of a 1.3 cm smooth mass as well subcutaneous, mobile, seems well-defined Neck: Yes no lymphadenopathy Resp Auscultation: clear to auscultation bilaterally Cardio Other: Has holosystolic murmur Rhythm: regular rhythm GI Palpation (GI): Soft to palpation, nontender and no guarding Neuro General: patient oriented x3 Assessment & Plan Assessment & Plan (1) Multiple masses of neck: Code(s): R22.1 - Localized swelling, mass and lump, neck Category: Medical Plan: He has 2 neck masses as described above. These seemed to be lipomas versus this read he wants both of these removed. I explained to him that in view of the location, it may be best to proceed with excision under anesthesia. I explained the technique of this procedure. I reviewed the risks including but not limited to bleeding, infections, poor healing, injury to other neck organs, as well as the benefits and alternatives He says he understands and wants to proceed. He will be scheduled in the operating room under MAC. Coding Level of Care Code New Pt Level 3 (64866) Diagnoses Multiple masses of neck R22.1
[2024-08-18 13:35] VITALS: BP 136/65; PULSE 89; BMI 29.4
--- OUTSIDE RECORDS SUMMARY | 2024-08-18 14:04 | XMS_ITS | Clinical Summary ---
Author Organization [facility] Address [address] [place] [address] Phone Care Team Providers Care Observer [employer] Name Role Phone Montserrat Goldman MD Primary Care Provider [phone] Allergies No known active allergies Medications omeprazole (PriLOSEC) [address] capsule Take 1 capsule (20 mg total) by mouth 1 (one) time each day for 14 days. Do not crush or chew. 14 each 5 08/22/19 25 Active albuterol HFA (PROAIR HFA ; PROVENTIL HFA ; VENTOLIN HFA) 90 mcg/actuation inhaler Inhale 2 puffs by mouth every 4 (four) hours if needed for shortness of breath. 1 each 5 09/07/19 25 Active polyethylene glycol (GoLYTELY) 236-22.74-6.74 -5.86 gram solution Take 4,000 mL by mouth 1 (one) time for 1 dose. Drink 8 ounces every 20 to 30 minutes until you have a bowel movement then stop, liquid and soft mechanical diet until constipation resolves 4000 mL 5 08/08/19 25 Active Problems No known active problems Encounters Date Type Department Care Team Description 08/07/2024 1:45 PM EDT - 08/07/2024 7:[address] [facility] Emergency [address] [place] [address] Natalie Vergara DO Chest pain, unspecified type (Primary Dx) Discharge Disposition: Home or Self Care from Last 3 Months Medical History Medical History Date Comments Hypertension Social History Tobacco Use Types Packs/Day Years Used Date Smoking Tobacco: Former Sex and Gender Information Value Date Recorded Sex Assigned at Not on file Legal Sex Male 9:43 PM EST Gender Identity Not on file Sexual Orientation Not on file Obstetrics History Last Filed Vital Signs Vital Sign Reading Time Taken Comments Blood Pressure 163/81 08/07/2024 5:58 PM EDT Pulse 74 08/07/2024 5:58 PM EDT Temperature 36.8 ??C (98.2 ??F) 08/07/2024 5:58 PM ED T Respiratory Rate 18 08/07/2024 5:58 PM EDT Oxygen Saturation 96% 08/07/2024 5:58 PM EDT Inhaled Oxygen Concentration - - Weight 90.7 kg (200 lb) 08/07/2024 1:23 PM EDT Height 175.3 cm (5' 9 ) 08/07/2024 1:23 PM EDT Body Mass Index 29.53 08/07/2024 1:23 PM EDT Plan of Treatment Health Maintenance Due Date Last Done Comments Zoster Vaccines (1 of 2) 10/27/1993 RSV [...] 03/07/2032 03/07/2022 Influenza Vaccine Completed 01/02/2024, 12/09/2017 Pneumococcal Vaccine: 50+ Years Completed 06/23/2024 HIB Vaccines Aged Out No longer eligi [...] on patient's age to complete this topic Procedures Procedure Name Priority Date/Time Associated Diagnosis Comments ECG ANNOTATED 08/09/2024 VELASCO URINE CULTURE TUBE STAT 08/07/2024 4:18 PM EDT URINALYSIS WITH REFLEX MICROSCOPIC AND CULTURE STAT 08/07/2024 4:18 PM EDT URINALYSIS WITH REFLEX MICROSCOPIC AND CULTURE STAT 08/07/2024 4:18 PM EDT TROPONIN I HIGH SENSITIVITY STAT 08/07/2024 2:29 PM EDT XR CHEST 2 VIEWS STAT 08/07/2024 2:12 PM EDT CBC WITH AUTO DIFFERENTIAL STAT 08/07/2024 1:23 PM EDT B-TYPE NATRIURETIC PEPTIDE STAT 08/07/2024 1:23 PM EDT MAGNESIUM STAT 08/07/2024 1:23 PM EDT LIPASE STAT 08/07/2024 1:23 PM EDT COMPREHENSIVE METABOLIC PANEL STAT 08/07/2024 1:23 PM EDT CBC AND DIFFERENTIAL STAT 08/07/2024 1:23 PM EDT TROPONIN I HIGH SENSITIVITY STAT 08/07/2024 1:23 PM EDT ECG 12-LEAD STAT 08/07/2024 1:18 PM EDT from Last 3 Months Results * ECG-Annotated (08/09/2024) us Provider Onbase MD ECG ORDERABLES Final Result * Urinalysis with reflex microscopic and culture (08/07/2024 4:18 PM EDT) Specific [place] Urine 1.015 1.003 - 1.030 LAB URINALYSIS - AUTOMATED METHOD 08/07/2024 5:20 PM [facility] pH, Urine 6.0 5.0 - 8.0 pH LAB URINALYSIS - AUTOMATED METHOD 08/07/2024 5:20 PM [facility] Leukocytes, Urine Negative Negative LAB URINALYSIS - AUTOMATED METHOD 08/07/2024 5:20 PM [facility] Nitrite, Urine Negative Negative LAB URINALYSIS - AUTOMATED METHOD 08/07/2024 5:20 PM [facility] Protein, Urine Negative <=Trace mg/dL LAB URINALYSIS - AUTOMATED METHOD 08/07/2024 5:20 PM [facility] Glucose, Urine Negative Negative mg/dL LAB URINALYSIS - AUTOMATED METHOD 08/07/2024 5:20 PM [facility] Ketones, Urine Negative Negative mg/dL LAB URINALYSIS - AUTOMATED METHOD 08/07/2024 5:20 PM [facility] Urobilinogen, Urine 0.2 0.2 - 1.0 mg/dL LAB URINALYSIS - AUTOMATED METHOD 08/07/2024 5:20 PM [facility] Bilirubin, Urine Negative Negative LAB URINALYSIS - AUTOMATED METHOD 08/07/2024 5:20 PM [facility] Blood, Urine Negative Negative LAB URINALYSIS - AUTOMATED METHOD 08/07/2024 5:20 PM [facility] Urine Urine specimen obtained by clean catch procedure / Unknown Non-blood Collection / Unknown 08/07/2024 4:18 PM EDT 08/07/2024 5:14 PM EDT Natalie Vergara LAB URINE ORDERABLES Kiarra l Result Performing Organization Address [facility]/ZIP Co de Phone Number [facility] [address] [place] [address], [place] [phone] * Velasco urine culture tube (08/07/2024 4:18 PM EDT) [facility] Extra Tube Hold for add-ons. 08/07/2024 7:01 PM EDT [facility] Comment:Auto resulted. Urine Urine specimen obtained by clean catch procedure / Unknown Non-blood Collection / Unknown 08/07/2024 4:18 PM EDT 08/07/2024 5:14 PM EDT Jose Raul Christopher Vergara LAB URINE ORDERABLES Kiarra l Result Performing Organization Address [facility] Co de Phone Number [facility] [address] [place] [address], [place] [phone] * Troponin I high sensitivity (08/07/2024 2:29 PM EDT) Only the most recent of2 resultswithin the time period is included. [facility] High Sensitivity Troponin I 14 <=79 ng/L LAB CHEMISTRY METHOD 08/07/2024 3:42 PM EDT [facility] Blood Venous blood specimen / Unknown Venipuncture / Unknown 08/07/2024 2:29 PM EDT 08/07/2024 3:07 PM EDT Narrative [facility] - 08/07/2024 3:42 PM EDT High levels of biotin in samples may falsely decrease hsTroponin values. ??Use caution when interpreting hsTroponin results in patients taking biotin who exhibit renal impairment (eGFR <60) or in patients taking more than 20 mg/day of biotin. us Natalie Vergara DO LAB BLOOD ORDERABLES Kiarra l Result [facility] [address] [place] [address], [place] [phone] * XR Chest 2 Views (08/07/2024 2:12 PM EDT) Anatomical Region Laterality Modality Body Radiographic Stella ging 08/07/2024 2:11 PM EDT Impressions 08/07/2024 2:12 PM EDT FINDINGS/IMPRESSION: Slight increase in hazy opacity involving the right lung base favored to represent volume loss and bronchovascular crowding though developing infiltrate not entirely excluded. ??No congestive heart failure. ??No acute osseous abnormality. -------- FINAL REPORT -------- Dictated By: Pedro Mg Dictated Date: 08/07/2024 14:11 ET Assigned Physician: Pedro Mg Reviewed and Electronically Signed By: Pedro Mg Signed Date: 08/07/2024 14:12 ET Workstation ID: [id number] Transcribed By: Self Edit Transcribed Date: 08/07/2024 14:11 ET Narrative 08/07/2024 2:12 PM EDT XR CHEST 2 VIEWS INDICATION: chest pain TECHNIQUE: XR CHEST 2 VIEWS COMPARISON: No priors available. Procedure Note Pedro Mg MD - 08/07/2024 XR CHEST 2 VIEWS INDICATION: chest pain TECHNIQUE: XR CHEST 2 VIEWS COMPARISON: No priors available. IMPRESSION: FINDINGS/IMPRESSION: Slight increase in hazy opacity involving the rightlung base favored to represent volume loss and bronchovascular crowdingthough developing infiltrate not entirely excluded. No congestive heartfailure. No acute osseous abnormality. -------- FINAL REPORT -------- Dictated By: Pedro Mg Dictated Date: 08/07/2024 14:11 ET Assigned Physician: Pedro Mg Reviewed and Electronically Signed By: Pedro Mg Signed Date: 08/07/2024 14:12 ET Workstation ID: [id number] Transcribed By: Self Edit Transcribed Date: 08/07/2024 14:11 ET us Natalie Vergara DO IMG XR PROCEDURES Final R esult * (ABNORMAL) CBC auto differential (08/07/2024 1:23 PM EDT) [facility] WBC 8.3 4.8 - 10.8 K/mcL LAB HEMETOLOGY METHOD 08/07/2024 1:46 PM EDT [facility] RBC 5.40 4.50 - 5.50 M/mcL LAB HEMETOLOGY METHOD 08/07/2024 1:46 PM EDT [facility] Hemoglobin 16.5 13.5 - 17.5 g/dL LAB HEMETOLOGY METHOD 08/07/2024 1:[facility] Hematocrit 50.8 42.0 - 54.0 % LAB HEMETOLOGY METHOD 08/07/2024 1:46 PM EDT [facility] MCV 93.9 79.0 - 98.0 FL LAB HEMETOLOGY METHOD 08/07/2024 1:46 PM EDT [facility] MCH 30.5 27.0 - 32.0 pcg LAB HEMETOLOGY METHOD 08/07/2024 1:46 PM [facility] MCHC 32.5 32.0 - 37.0 g/dL LAB HEMETOLOGY METHOD 08/07/2024 1:46 PM EDT [facility] RDW 13.7 11.0 - 15.0 % LAB HEMETOLOGY METHOD 08/07/2024 1:46 PM EDT [facility] Platelets 298 130 - 400 K/mcL LAB HEMETOLOGY METHOD 08/07/2024 1:46 PM [facility] MPV 9.2 7.0 - 11.0 FL LAB HEMETOLOGY METHOD 08/07/2024 1:46 PM EDT [facility] NRBC 0.0 <1.0 % LAB HEMETOLOGY METHOD 08/07/2024 1:46 PM [facility] NRBC Absolute 0.00 <0.10 K/mcL LAB HEMETOLOGY METHOD 08/07/2024 1:46 PM [facility] Neutrophils Relative 59.3 % LAB HEMETOLOGY METHOD 08/07/2024 1:46 PM [facility] Lymphocytes Relative 23.8 % LAB HEMETOLOGY METHOD 08/07/2024 1:46 PM [facility] Monocytes Relative 15.2 % LAB HEMETOLOGY METHOD 08/07/2024 1:46 PM [facility] Eosinophils Relative 0.7 % LAB HEMETOLOGY METHOD 08/07/2024 1:46 PM [facility] Basophils Relative 0.8 % LAB HEMETOLOGY METHOD 08/07/2024 1:46 PM [facility] Immature Granulocytes Relative 0.2 % LAB HEMETOLOGY METHOD 08/07/2024 1:46 PM [facility] Neutrophils Absolute 4.89 1.50 - 7.00 K/mcL LAB HEMETOLOGY METHOD 08/07/2024 1:46 PM [facility] Lymphocytes Absolute 1.96 1.00 - 5.00 K/mcL LAB HEMETOLOGY METHOD 08/07/2024 1:46 PM [facility] Monocytes Absolute 1.25(H) 0.20 - 1.00 K/mcL LAB HEMETOLOGY METHOD 08/07/2024 1:46 PM [facility] Eosinophils Absolute 0.06 0.00 - 0.50 K/mcL LAB HEMETOLOGY METHOD 08/07/2024 1:46 PM [facility] Basophils Absolute 0.07 0.00 - 0.20 K/mcL LAB HEMETOLOGY METHOD 08/07/2024 1:46 PM [facility] Immature Granulocytes Absolute 0.02 0.00 - 0.03 K/mcL LAB HEMETOLOGY METHOD 08/07/2024 1:46 PM EDT [facility] Blood Venous blood specimen / Unknown Venipuncture / Unknown 08/07/2024 1:23 PM EDT 08/07/2024 1:38 PM EDT Natalie Vergara DO LAB BLOOD ORDERABLES Kiarra l Result Performing Organization Address [facility] de Phone Number [facility] [address] [place] [address], [place] [phone] * B-type natriuretic peptide (08/07/2024 1:23 PM EDT) Pathologist [facility] BNP 9 <=100 pcg/mL LAB CHEMISTRY METHOD 08/07/2024 2:45 PM EDT [facility] Blood Venous blood specimen / Unknown Venipuncture / Unknown 08/07/2024 1:23 PM EDT 08/07/2024 1:38 PM EDT Natalie Vergara DO LAB BLOOD ORDERABLES Kiarra l Result Performing Organization Address [facility] de Phone Number [facility] [address] [place] [address], [place] [phone] * Magnesium (08/07/2024 1:23 PM EDT) Pathologist [facility] Magnesium 2.2 1.9 - 2.6 mg/dL LAB CHEMISTRY METHOD 08/07/2024 2:07 PM EDT [facility] Blood Venous blood specimen / Unknown Venipuncture / Unknown 08/07/2024 1:23 PM EDT 08/07/2024 1:38 PM EDT Natalie Vergara LAB BLOOD ORDERABLES Kiarra l Result [facility] [address] [place] [address], [place] [phone] * Lipase (08/07/2024 1:23 PM EDT) [facility] Lipase 37 13 - 75 unit/L LAB CHEMISTRY METHOD 08/07/2024 2:07 PM EDT [facility] Blood Venous blood specimen / Unknown Venipuncture / Unknown 08/07/2024 1:23 PM EDT 08/07/2024 1:38 PM EDT Jose Raul Christopher Dakota Jai DO LAB BLOOD ORDERABLES Kiarra l Result [facility] [address] [place] [address], [place] [phone] * (ABNORMAL) Comprehensive metabolic panel (08/07/2024 1:23 PM EDT) [facility] Sodium 138 133 - 145 mmol/L LAB CHEMISTRY METHOD 08/07/2024 2:07 PM [facility] Potassium 3.9 3.5 - 5.5 mmol/L LAB CHEMISTRY METHOD 08/07/2024 2:07 PM [facility] Chloride 105 96 - 110 mmol/L LAB CHEMISTRY METHOD 08/07/2024 2:07 PM [facility] CO2 25 21 - 32 mmol/L LAB CHEMISTRY METHOD 08/07/2024 2:07 PM [facility] Anion Gap 8 3 - 11 LAB CHEMISTRY METHOD 08/07/2024 2:07 PM [facility] Glucose 127(H) 70 - 100 mg/dL LAB CHEMISTRY METHOD 08/07/2024 2:07 PM [facility] BUN 21 5 - 25 mg/dL LAB CHEMISTRY METHOD 08/07/2024 2:07 PM [facility] Creatinine 1.04 0.70 - 1.30 mg/dL LAB CHEMISTRY METHOD 08/07/2024 2:07 PM [facility] eGFR 73 >=60 mL/min/1. 73m2 LAB CHEMISTRY METHOD 08/07/2024 2:07 PM [facility] Comment:Calculation based on the Chronic Kidney Disease Epidemiology Collaboration (CKD-EPI) equation refit without adjustment for race. BUN/Creatinine Ratio 20.2 LAB CHEMISTRY METHOD 08/07/2024 2:07 PM [facility] Calcium 9.4 8.5 - 10.5 mg/dL LAB CHEMISTRY METHOD 08/07/2024 2:07 PM [facility] AST (SGOT) 33 10 - 42 unit/L LAB CHEMISTRY METHOD 08/07/2024 2:07 PM [facility] ALT (SGPT) 46 10 - 60 unit/L LAB CHEMISTRY METHOD 08/07/2024 2:07 PM [facility] Alkaline Phosphatase 83 42 - 121 unit/L LAB CHEMISTRY METHOD 08/07/2024 2:07 PM [facility] Total Protein 7.3 6.0 - 8.0 g/dL LAB CHEMISTRY METHOD 08/07/2024 2:07 PM [facility] Albumin 4.2 3.2 - 5.0 g/dL LAB CHEMISTRY METHOD 08/07/2024 2:07 PM [facility] Total Bilirubin 0.5 0.0 - 1.4 mg/dL LAB CHEMISTRY METHOD 08/07/2024 2:07 PM [facility] Blood Venous blood specimen / Unknown Venipuncture / Unknown 08/07/2024 1:23 PM EDT 08/07/2024 1:38 PM EDT us Natalie Vergara DO LAB BLOOD ORDERABLES Kiarra l Result [facility] [address], [place] [address] [phone] * ECG 12 lead (08/07/2024 1:18 PM EDT) Ventricular Rate ECG 86 BPM GEMUSE Atrial Rate 86 BPM GEMUSE P-R Interval 174 ms GEMUSE QRS Duration 100 ms GEMUSE Q-T Interval 356 ms GEMUSE QTc 426 ms GEMUSE P Wave Oneco 73 degrees GEMUSE R Oneco 52 degrees GEMUSE T Oneco 93 degrees GEMUSE ECG Interpretation Normal sinus rhythm Possible Left atrial enlargement Minimal voltage criteria for LVH, may be normal variant ( [place] product ) Nonspecific T wave abnormality Abnormal ECG When compared with ECG of 17-JUL-2022 15:54, No significant change was found Confirmed by ULYSSES SHEETS ([id number]) on 08/09/2024 9:25:16 AM GEMUSE 08/07/2024 1:18 PM EDT 08/09/2024 9:25 AM EDT [facility] Christopher Vergara DO ECG ORDERABLES Final Res ult GEMUSE from Last 3 Months Insurance MEDICA[place] - [place] MEDICARE Care Teams Observer Electrical [employer] Relationship Specialty Start Date End Date Montserrat Goldman MD [address] [place] [address] , [address] [facility]A: [facility] TARYN Mendosa PCP - General 05/27/21
== END 2024-08-18 13:55 | disposition home or self-care (01) ==
LOC: HO.HGS 11:59
PROVIDERS: PCP Internal Medicine; Referring Provider Internal Medicine; Visit Provider Surgery
DX: R22.1 Localized swelling, mass and lump, neck (principal)
CPT/HCPCS: 99203

== ENCOUNTER → 2024-08-18 11:59 | Outpatient (BNVA) | payer MEDICARE, MEDICAID, SELFPAY | PROVIDERS: PCP Internal Medicine; Referring Provider Internal Medicine; Visit Provider Surgery | DX: R22.1 Localized swelling, mass and lump, neck (principal) | CPT/HCPCS: 99202 ==

== ENCOUNTER 2024-08-23 12:09 | Outpatient (AMB) | payer MEDICARE, MEDICAID, SELFPAY ==
[2024-08-23 13:03] VITALS: BMI 29.4
--- NOTE | 2024-08-23 13:03 | A.OFFVIS_ITS ---
Vital Signs 08/23/24 13:03 Height 5 ft 9 in Weight 199 lb BMI 29.4 Intake Visit Reasons: Re-Ref for AAA s/p Abd 08/11/24 Intake Note: follow up AAA US 08/11/24 re-referral, last seen 02/13/22. no complaints Accompanied by: Self / Same As Patient Allergies No Known Allergies Allergy (Mild, Verified 08/23/24 13:08) NOT APPLICABLE HPI HPI Re-Ref for AAA s/p Abd 08/11/24: Details: Very pleasant 78-year-old gentleman who was lost to follow-up presents for re- evaluation regarding abdominal aortic aneurysm. He had been seen by us in the past back in February of 2022 at that time he had an aneurysm of 3.6 cm and he was smoking 4-5 cigarettes daily. He now presents for follow-up with new ultrasound dated 08/11/2024. Of note he had previous carotid surveillance as well. He has had no interval issues and now presents for routine surveillance follow-up. [facility] Medical History Multiple masses of neck Impaired glucose tolerance Dyslipidemia Essential hypertension Surgical History History of prostate surgery History of knee replacement Family History Father No problems noted. Mother No problems noted. Social History Housing: House Alcohol intake: current Alcohol intake frequency: a few times a month Alcohol type: beer Patient Tobacco Use Status: Current someday Tobacco user Tobacco use type: Cigarette Cigarettes Per Day: 3 e-Cigarette/Vaping Use: Never Used Second Hand Smoke Exposure: No service: No Current occupational status: retired and disabled Cognitive needs: No Hearing needs: No Vision needs: Yes (glasses) Review of Systems Const All systems reviewed & are unremarkable except as noted in HPI and below Reports no additional complaints ENT Reports Normal hearing present Card Denies chest pain, Denies chest pain at rest, Denies chest pain with activity and Denies pedal edema Resp Denies cough GI Denies abdominal pain Musc Denies abnormal gait, Denies muscle cramps and Denies radiating pain into limb Skin/Breast Denies skin ulcer and Denies wounds Neuro Reports Normal hearing present and Denies abnormal gait Psych Reports no additional complaints Physical Exam Vital Signs: BMI result Body Mass Index 29.4 Const General: cooperative, healthy appearing and comfortable Orientation/consciousness: oriented to person, oriented to place and oriented to time HEENT Head: Yes normal to inspection Neck Neck: Yes normal visual inspection Carotids: no bruits Chest Chest palpation & inspection: normal inspection of the chest Resp Effort & Inspection: normal respiratory effort and able to speak in complete sentences Auscultation: clear to auscultation bilaterally, no crackles, no rales, no rhonchi and no wheezes Cardio Rate: regular rate Rhythm: regular rhythm Heart sounds: S1 normal heart sound present and S2 normal heart sound present Bruits: no carotid bruits Peripheral pulses: Peripheral pulses 2+ throughout GI Inspection: Yes normal to inspection Skin Wounds: no wounds Hair: normal Neuro General: oriented to person, oriented to place and oriented to time Cranial nerves: Yes CN's II-XII intact bilaterally and Yes Normal hearing present Cognition (Neuro): normal cognition Motor exam (neuro): 5/5 motor strength present throughout Extrem Other: venous exam: No significant superficial varicosities or spider tel angiectasias, minimal edema General: No clubbing, No cyanosis and No edema Psych Appearance: grossly normal Mental Status: mental status grossly normal Speech and movement: Normal speech and movement present Results Reviewed Results Reviewed: Aortic ultrasound dated 08/11/2024 demonstrates distal abdominal aortic aneurysm of 3.7 x 4.8 cm written report and images were reviewed. Carotid testing dated 10/14/2022 demonstrates right-sided stenosis of 50 to 79% stenosis and left-sided 0-49% stenosis Assessment & Plan Assessment & Plan (1) AAA (abdominal aortic aneurysm) without rupture: Code(s): I71.40 - Abdominal aortic aneurysm, without rupture, unspecified Category: Medical Qualifiers: Abdominal aorta location: infrarenal aorta Qualified Code(s): I71.43 - Infrarenal abdominal aortic aneurysm, without rupture Plan: In short patient has radiologic evidence of a AAA on ultrasound of 3.7 cm. We have discussed the pathophysiology of aortic aneurysms and the risk of ruptures. We have discussed rupture risk based on size. In addition we have discussed conservative measures and risk factor modification for prevention of increase in size of the aneurysm. the patient is scheduled for surveillance follow-up in approximately 6 months. Thank you for allowing us to participate in the care of this patient (2) Bilateral carotid artery stenosis: Code(s): I65.23 - Occlusion and stenosis of bilateral carotid arteries Category: Medical Plan: In short patient has asymptomatic carotid disease. We have reviewed signs and symptoms of a stroke. We also discussed risk factor modification inclusive a healthy diet low in cholesterol. The patient will follow up with us with surveillance ultrasound of the carotids six months. Should there be any changes or signs or symptoms of a stroke we will be happy to see them back sooner. Thank you for allowing us to participate in this patient's care. If there are any questions or concerns please do not hesitate to contact us. Orders: Orders US abdominal aortic aneurysm 6 Months I71.43 - Infrarenal abdominal aortic aneurysm, without rupture US carotid duplex BI 6 Months I65.23 - Occlusion and stenosis of bilateral carotid arteries Coding Level of Care Code Est Pt Level 4 (10789) Complex EM visit Add On G2211 Diagnoses Infrarenal abdominal aortic aneurysm (AAA) without rupture I71.43 Abdominal aorta location: infrarenal aorta Bilateral carotid artery stenosis I65.23
--- OUTSIDE RECORDS SUMMARY | 2024-08-23 13:47 | XMS_ITS | Clinical Summary ---
Author Organization [facility] Address [address] [place] [address] Phone Care Team Providers Care Meat Butcher Name Role Phone Montserrat Goldman MD Primary Care Provider [phone] Allergies No known active allergies Medications albuterol HFA (PROAIR HFA ; PROVENTIL HFA ; VENTOLIN HFA) 90 mcg/actuation inhaler Inhale 2 puffs by mouth every 4 (four) hours if needed for shortness of breath. 1 each 5 09/07/19 25 Active omeprazole (PriLOSEC) [address] capsule Take 1 capsule (20 mg total) by mouth 1 (one) time each day for 14 days. Do not crush or chew. 14 each 5 08/22/19 25 polyethylene glycol (GoLYTELY) 236-22.74-6.74 -5.86 gram solution [...] EDT - 08/07/2024 7:21 PM EDT Emergency [facility] [address] [place] [address] Natalie Vergara DO Chest pain, [...] and culture (08/07/2024 4:18 PM EDT) Specific Blanket Urine 1.015 1.003 - 1.030 LAB URINALYSIS - AUTOMATED METHOD 08/07/2024 5:20 PM [facility] pH, Urine 6.0 5.0 - 8.0 pH LAB URINALYSIS - AUTOMATED METHOD 08/07/2024 5:20 PM [facility] Leukocytes, Urine Negative Negative LAB URINALYSIS - AUTOMATED METHOD 08/07/2024 5:20 PM [facility] Nitrite, Urine Negative Negative LAB URINALYSIS - AUTOMATED METHOD 08/07/2024 5:20 PM [facility] Protein, Urine Negative <=Trace mg/dL LAB URINALYSIS - AUTOMATED METHOD 08/07/2024 5:20 PM [facility] Glucose, Urine Negative Negative mg/dL LAB URINALYSIS - AUTOMATED METHOD 08/07/2024 5:20 PM [facility] Ketones, Urine Negative Negative mg/dL LAB URINALYSIS - AUTOMATED METHOD 08/07/2024 5:20 PM [facility] Urobilinogen, Urine 0.2 0.2 - 1.0 mg/dL LAB URINALYSIS - AUTOMATED METHOD 08/07/2024 5:20 PM [facility] Bilirubin, Urine Negative Negative LAB URINALYSIS - AUTOMATED METHOD 08/07/2024 5:20 PM [facility] Blood, Urine Negative Negative LAB URINALYSIS - AUTOMATED METHOD 08/07/2024 5:20 PM [facility] Urine Urine specimen obtained by clean catch procedure / Unknown Non-blood Collection / Unknown 08/07/2024 4:18 PM EDT 08/07/2024 5:14 PM EDT Natalie Vergara LAB URINE ORDERABLES Kiarra l Result Performing Organization Address [facility]/ZIP Co de Phone Number [facility] [address] [place] [address], [place] [phone] * Velasco urine culture tube (08/07/2024 4:18 PM EDT) [facility] Extra Tube Hold for add-ons. 08/07/2024 7:01 PM EDT [facility] Comment:Auto resulted. Urine Urine specimen obtained by clean catch procedure / Unknown Non-blood Collection / Unknown 08/07/2024 4:18 PM EDT 08/07/2024 5:14 PM EDT Jose Raul Christopher Vergara LAB URINE ORDERABLES Kiarra l Result Performing Organization Address [facility] Co de Phone Number [facility] [address] [place] [address], [place] [phone] * Troponin I high sensitivity (08/07/2024 2:29 PM EDT) Only the most recent of2 resultswithin the time period is included. [facility] High Sensitivity Troponin I 14 <=79 ng/L LAB CHEMISTRY METHOD 08/07/2024 3:42 PM EDT [facility] Blood Venous blood specimen / Unknown Venipuncture / Unknown 08/07/2024 2:29 PM EDT 08/07/2024 3:07 PM EDT Narrative [facility] - 08/07/2024 3:42 PM EDT High levels of biotin in samples may falsely decrease hsTroponin values. ??Use caution when interpreting hsTroponin results in patients taking biotin who exhibit renal impairment (eGFR <60) or in patients taking more than 20 mg/day of biotin. us Natalie Vergara DO LAB BLOOD ORDERABLES Kiarra l Result [facility] [address] [place] [address], [place] [phone] * XR Chest 2 Views (08/07/2024 2:12 [...] Signed Date: 08/07/2024 14:12 ET Workstation ID: [id number] Transcribed By: Self Edit Transcribed Date: 08/07/2024 [...] Signed Date: 08/07/2024 14:12 ET Workstation ID: [id number] Transcribed By: Self Edit Transcribed Date: 08/07/2024 14:11 ET us Natalie Vergara DO IMG XR PROCEDURES Final R esult * (ABNORMAL) CBC auto differential (08/07/2024 1:23 PM EDT) [facility] WBC 8.3 4.8 - 10.8 K/mcL LAB HEMETOLOGY METHOD 08/07/2024 1:46 PM EDT [facility] RBC 5.40 4.50 - 5.50 M/mcL LAB HEMETOLOGY METHOD 08/07/2024 1:46 PM EDT [facility] Hemoglobin 16.5 13.5 - 17.5 g/dL LAB HEMETOLOGY METHOD [facility]/07[facility]24 [facility] Hematocrit 50.8 42.0 - 54.0 % LAB HEMETOLOGY METHOD 08/07/2024 1:[facility] MCV 93.9 79.0 - 98.0 FL LAB HEMETOLOGY METHOD 08/07/2024 1:46 PM EDT [facility] MCH 30.5 27.0 - 32.0 pcg LAB HEMETOLOGY METHOD 08/07/2024 1:[facility] MCHC 32.5 32.0 - 37.0 g/dL LAB HEMETOLOGY METHOD 08/07/2024 1:46 PM EDT [facility] RDW 13.7 11.0 - 15.0 % LAB HEMETOLOGY METHOD 08/07/2024 1:46 PM EDT [facility] Platelets 298 130 - 400 K/mcL LAB HEMETOLOGY METHOD 08/07/2024 1:46 [facility] MPV 9.2 7.0 - 11.0 FL LAB HEMETOLOGY METHOD 08/07/2024 1:46 PM EDT [facility] NRBC 0.0 <1.0 % LAB HEMETOLOGY METHOD 08/07/2024 1:46 PM [facility] NRBC Absolute 0.00 <0.10 K/mcL LAB HEMETOLOGY METHOD 08/07/2024 1:46 PM [facility] Neutrophils Relative 59.3 % LAB HEMETOLOGY METHOD 08/07/2024 1:46 PM [facility] Lymphocytes Relative 23.8 % LAB HEMETOLOGY METHOD 08/07/2024 1:46 PM [facility] Monocytes Relative 15.2 % LAB HEMETOLOGY METHOD 08/07/2024 1:46 PM [facility] Eosinophils Relative 0.7 % LAB HEMETOLOGY METHOD 08/07/2024 1:46 PM [facility] Basophils Relative 0.8 % LAB HEMETOLOGY METHOD 08/07/2024 1:46 PM [facility] Immature Granulocytes Relative 0.2 % LAB HEMETOLOGY METHOD 08/07/2024 1:46 PM [facility] Neutrophils Absolute 4.89 1.50 - 7.00 K/mcL LAB HEMETOLOGY METHOD 08/07/2024 1:46 PM [facility] Lymphocytes Absolute 1.96 1.00 - 5.00 K/mcL LAB HEMETOLOGY METHOD 08/07/2024 1:46 PM [facility] Monocytes Absolute 1.25(H) 0.20 - 1.00 K/mcL LAB HEMETOLOGY METHOD 08/07/2024 1:46 PM [facility] Eosinophils Absolute 0.06 0.00 - 0.50 K/mcL LAB HEMETOLOGY METHOD 08/07/2024 1:46 PM [facility] Basophils Absolute 0.07 0.00 - 0.20 K/mcL LAB HEMETOLOGY METHOD 08/07/2024 1:46 PM [facility] Immature Granulocytes Absolute 0.02 0.00 - 0.03 K/mcL LAB HEMETOLOGY METHOD 08/07/2024 1:46 PM EDT [facility] Blood Venous blood specimen / Unknown Venipuncture / Unknown 08/07/2024 1:23 PM EDT 08/07/2024 1:38 PM EDT Natalie Vergara DO LAB BLOOD ORDERABLES Kiarra l Result Performing Organization Address [facility] de Phone Number [facility] [address] [place] [address], [place] [phone] * B-type natriuretic peptide (08/07/2024 1:23 PM EDT) Pathologist [facility] BNP 9 <=100 pcg/mL LAB CHEMISTRY METHOD 08/07/2024 2:45 PM EDT [facility] Blood Venous blood specimen / Unknown Venipuncture / Unknown 08/07/2024 1:23 PM EDT 08/07/2024 1:38 PM EDT Natalie Vergara DO LAB BLOOD ORDERABLES Kiarra l Result Performing Organization Address [facility] de Phone Number [facility] [address] [place] [address], [place] [phone] * Magnesium (08/07/2024 1:23 PM EDT) Pathologist [facility] Magnesium 2.2 1.9 - 2.6 mg/dL LAB CHEMISTRY METHOD 08/07/2024 2:07 PM EDT [facility] Blood Venous blood specimen / Unknown Venipuncture / Unknown 08/07/2024 1:23 PM EDT 08/07/2024 1:38 PM EDT Natalie Vergara DO LAB BLOOD ORDERABLES Kiarra l Result Performing Organization Address City/[facility]/ZIP Co de Phone Number [facility] [address] [place] [address], [place] [phone] * Lipase (08/07/2024 1:23 PM EDT) [facility] Lipase 37 13 - 75 unit/L LAB CHEMISTRY METHOD 08/07/2024 2:07 PM EDT [facility] Blood Venous blood specimen / Unknown Venipuncture / Unknown 08/07/2024 1:23 PM EDT 08/07/2024 1:38 PM EDT Natalie White Dakota Jai DO LAB BLOOD ORDERABLES Kiarra l Result [facility] [address] [place] [address], [place] [phone] * (ABNORMAL) Comprehensive metabolic panel (08/07/2024 1:23 PM EDT) [facility] Sodium 138 133 - 145 mmol/L LAB CHEMISTRY METHOD 08/07/2024 2:07 PM [facility] Potassium 3.9 3.5 - 5.5 mmol/L LAB CHEMISTRY METHOD 08/07/2024 2:07 PM [facility] Chloride 105 96 - 110 mmol/L LAB CHEMISTRY METHOD 08/07/2024 2:07 PM [facility] CO2 25 21 - 32 mmol/L LAB CHEMISTRY METHOD 08/07/2024 2:07 PM [facility] Anion Gap 8 3 - 11 LAB CHEMISTRY METHOD 08/07/2024 2:07 PM [facility] Glucose 127(H) 70 - 100 mg/dL LAB CHEMISTRY METHOD 08/07/2024 2:07 PM [facility] BUN 21 5 - 25 mg/dL LAB CHEMISTRY METHOD 08/07/2024 2:07 PM [facility] Creatinine 1.04 0.70 - 1.30 mg/dL LAB CHEMISTRY METHOD 08/07/2024 2:07 PM [facility] eGFR 73 >=60 mL/min/1. 73m2 LAB CHEMISTRY METHOD 08/07/2024 2:07 PM [facility] Comment:Calculation based on the Chronic Kidney Disease Epidemiology Collaboration (CKD-EPI) equation refit without adjustment for race. BUN/Creatinine Ratio 20.2 LAB CHEMISTRY METHOD 08/07/2024 2:07 PM [facility] Calcium 9.4 8.5 - 10.5 mg/dL LAB CHEMISTRY METHOD 08/07/2024 2:07 PM [facility] AST (SGOT) 33 10 - 42 unit/L LAB CHEMISTRY METHOD 08/07/2024 2:07 PM [facility] ALT (SGPT) 46 10 - 60 unit/L LAB CHEMISTRY METHOD 08/07/2024 2:07 PM [facility] Alkaline Phosphatase 83 42 - 121 unit/L LAB CHEMISTRY METHOD 08/07/2024 2:07 PM [facility] Total Protein 7.3 6.0 - 8.0 g/dL LAB CHEMISTRY METHOD 08/07/2024 2:07 PM [facility] Albumin 4.2 3.2 - 5.0 g/dL LAB CHEMISTRY METHOD 08/07/2024 2:07 PM [facility] Total Bilirubin 0.5 0.0 - 1.4 mg/dL LAB CHEMISTRY METHOD 08/07/2024 2:07 PM [facility] Blood Venous blood specimen / Unknown Venipuncture / Unknown 08/07/2024 1:23 PM EDT 08/07/2024 1:38 PM EDT us Natalie Vergara DO LAB BLOOD ORDERABLES Kiarra l Result [facility] [address] [phone] * ECG 12 lead (08/07/2024 1:18 PM EDT) Ventricular Rate ECG 86 BPM GEMUSE Atrial Rate 86 BPM GEMUSE P-R Interval 174 ms GEMUSE QRS Duration 100 ms GEMUSE Q-T Interval 356 ms GEMUSE QTc 426 ms GEMUSE P Wave Kimberly 73 degrees GEMUSE R Kimberly 52 degrees GEMUSE T Kimberly 93 degrees GEMUSE ECG Interpretation Normal sinus rhythm Possible Left atrial enlargement Minimal voltage criteria for LVH, may be normal variant ( Mancos product ) Nonspecific T wave abnormality Abnormal ECG When compared with ECG of 17-JUL-2022 15:54, No significant change was found Confirmed by ULYSSES SHEETS ([id number]) on 08/09/2024 9:25:16 AM GEMUSE 08/07/2024 1:18 PM EDT 08/09/2024 9:25 AM EDT [facility] Christopher Dakota Jai DO ECG ORDERABLES Final Res ult GEMUSE from Last 3 Months Insurance MEDICAID - [place] MEDICARE Care Teams Meat Butcher Relationship Specialty Start Date End Date Montserrat Goldman MD [address] [place] [address] , [address] [facility] TARYN Mendosa PCP - General 05/27/21
== END 2024-08-23 13:53 | disposition home or self-care (01) ==
LOC: HO.HVS 12:09
PROVIDERS: PCP Internal Medicine; Visit Provider Surgery Vascular Surgery
DX: I71.43 Infrarenal abdominal aortic aneurysm, without rupture (principal); I65.23 Occlusion and stenosis of bilateral carotid arteries
CPT/HCPCS: 99214; G2211

== ENCOUNTER → 2024-08-23 12:09 | Outpatient (BNVA) | payer MEDICARE, MEDICAID, SELFPAY | PROVIDERS: PCP Internal Medicine; Visit Provider Surgery Vascular Surgery | DX: I71.43 Infrarenal abdominal aortic aneurysm, without rupture (principal); I65.23 Occlusion and stenosis of bilateral carotid arteries | CPT/HCPCS: 99212 ==

== ENCOUNTER → 2024-08-25 09:52 | Outpatient (BNVA) | payer MEDICARE, MEDICAID, SELFPAY | PROVIDERS: PCP Internal Medicine ==

== ENCOUNTER 2024-08-30 11:49 | Outpatient (AMB) | payer MEDICARE, MEDICAID, SELFPAY ==
--- NOTE | 2024-08-30 12:16 | A.OFFPC_ITS ---
Vital Signs 08/30/24 12:17 08/30/24 12:57 Height 5 ft 9 in Weight 200 lb 6 oz BMI 29.6 BP 160/58 H 144/60 H Blood Pressure Location Lt brachial Lt brachial Position Sitting Pulse 87 Pulse Source Pulse Oximeter Temp 97.5 F Temp Source Temporal Artery Scan Pulse Oximetry (%) 95 Oxygen Delivery Method Room Air Comment 180/70 at home before appt. Intake Visit Reasons: Excision under anesthesia for left and right neck Habilitation Training Specialist Required: Yes Habilitation Training Specialist Language: Cargo And Container Inspector Name: Used tablet:[id number]/Daniel Accompanied by: Self / Same As Patient Allergies No Known Allergies Allergy (Mild, Verified 08/30/24 12:40) NOT APPLICABLE Medication List - Last Reconciled 08/30/24 by BETSEY Mullins aspirin (Adult Low Dose Aspirin) 81 mg PO DAILY atorvastatin 40 mg PO BEDTIME 90 days cholecalciferol (vitamin D3) (Vitamin D3) 25 mcg PO DAILY diclofenac sodium 1% (Voltaren Arthritis Pain) 4 grams topical QID PRN diltiazem HCl CD 240 mg PO DAILY 90 days hydralazine 100 mg PO TID 90 days hydrochlorothiazide 25 mg PO DAILY 90 days lisinopril 40 mg PO DAILY sennosides (senna) 8.6 mg PO BEDTIME PRN 90 days Tobacco use date assessed: 08/30/24 Fall risk assessment: No Falls in past year Last assessed Fall Risk: 08/30/24 Dental Screening Dental Screen Date: 08/30/24 Did you have a dental visit in the last 12 months?: No Did you have a dental problem in the last 6 months where you did not have access to dental care?: No Was dental information given to patient?: Patient declined (Pt has dentures) HPI Excision under anesthesia for left and right neck HPI Details The patient is a 78-year-old male, patient of Dr. Bolaños, last seen in office on 06/23/2024 Patient is presenting with need for preop clearance for excision of right and left neck masses. He said he has had this lump on the right neck for about over a year now. He has another smaller lump on the left neck posteriorly for a few months. He says both of these seemed to be increasing in size. He denies any drainage or skin changes. The patient has a AAA 3.7 cm. He has been managed by vascular, who have discussed conservative measures and risk factors modification for prevention of increased size of the aneurysm with the patient. The patient was also scheduled for surveillance follow up in six-month with vascular. Surgeon for/[place] [facility] [place] [facility] Reports that he did not have any issues with anesthesia before no chest pain, but he gets heart burn/chest. He went to the ER at [facility] a month ago and then did not find anything Reports that they gave him some iv fluids in serum, he was feeling really weak. Reports that he was feeling fatigue and has to use a cane. Will try to get the records Reports that he does not take his blood pressure all the time because sometimes the top numbers drops in the 115 or 120s. These times, he does not constipation: miralax started 6.3% prediabetic The patient reports going to the [facility] Medical History Multiple masses of neck Impaired glucose tolerance Dyslipidemia Essential hypertension Surgical History History of prostate surgery History of knee replacement Family History Father No problems noted. Mother No problems noted. Social History Housing: House Alcohol intake: current Alcohol intake frequency: a few times a month Alcohol type: beer Patient Tobacco Use Status: Current someday Tobacco user Tobacco use type: Cigarette Cigarettes Per Day: 3 e-Cigarette/Vaping Use: Never Used Second Hand Smoke Exposure: No service: No Current occupational status: retired and disabled Cognitive needs: No Hearing needs: No Vision needs: Yes (glasses) Questionnaire Thrive Questionnaire Date Thrive assessed: 06/23/24 BUCKY-7 AMB Questionnaire BUCKY-7 Date BUCKY - 7 assessed: 06/23/24 Source: Developed by Drs. Nik Riley, Alda Johnson, Kevin Mello and colleagues, with an educational wilver from [employer]. Review of Systems Const Denies headache(s) Eyes Denies loss of vision ENT Denies vertigo, Denies dizziness, Denies headache(s) and Denies sore throat Card Denies chest pain, Denies leg edema and Denies lightheadedness Resp Denies cough, Denies hemoptysis and Denies wheezing GI Denies abdominal pain, Denies melena, Denies constipation, Denies diarrhea and Denies vomiting Denies dysuria, Denies urinary frequency and Denies urinary urgency Musc Denies arthralgias, Denies joint swelling, Denies numbness and Denies tingling Neuro Denies behavioral changes, Denies vertigo, Denies dizziness, Denies headache(s), Denies loss of vision, Denies memory loss, Denies numbness and Denies tingling Psych Denies anxiety, Denies behavioral changes, Denies depression, Denies memory loss and Denies panic attacks Pietro/Lymph Denies easy bleeding and Denies easy bruising Aller/Immun Denies wheezing Physical exam (Primary Care) Vital Signs: Last Vital Signs Temp 97.5 F 08/30/24 12:17 Pulse 87 08/30/24 12:17 BP 144/60 H 08/30/24 12:57 Pulse Ox 95 08/30/24 12:17 Oxygen Delivery Method Room Air 08/30/24 12:17 BMI result Body Mass Index 29.6 Tobacco/Smoking Status: Tobacco use Status Tobacco use date assessed 08/30/24 08/30/24 12:24 Patient Tobacco Use Status Current someday Tobacco 08/30/24 12:19 Tobacco use type Cigarette 08/30/24 12:19 e-Cigarette/Vaping Use Never Used 08/30/24 12:19 Thrive Assessment: Date of Thrive Assessment Date Thrive assessed 06/23/24 08/30/24 12:19 Results AMB Hemoglobin A1c AMB Hemoglobin A1c 6.3 % Last Edit by VINCE Reddy on 08/30/24 13:18 Results Reviewed Results Reviewed: Laboratory Last Values Hgb A1c (Clinic) 6.3 % (4.0-6.0) H 08/30/24 13:14 Coding Assessment & Plan Assessment & Plan Orders: Orders AMB Hemoglobin A1c 08/30/24 R73.02 - Impaired glucose tolerance (oral) Medications: New polyethylene glycol 3350 (Miralax) 17 grams PO DAILY 238 grams 3RF
[2024-08-30 12:17] VITALS: BP 160/58; PULSE 87; TEMP 36.4; O2SAT 95; BMI 29.6
[2024-08-30 12:57] VITALS: BP 144/60
--- OUTSIDE RECORDS SUMMARY | 2024-08-30 13:29 | XMS_ITS | Clinical Summary ---
Author Organization [facility] Address [address] [place] [address] Phone Care Team Providers Care Yarn Inspector Name Role Phone Montserrat Goldman MD Primary Care Provider [phone] Allergies No known active allergies Medications albuterol [...] EDT - 08/07/2024 7:21 PM EDT Emergency Emergency [address] [place] [address] Natalie Vergara DO Chest pain, [...] 74 08/07/2024 5:58 PM EDT Temperature 36.8 C (98.2 F) 08/07/2024 5:58 PM EDT Respiratory Rate 18 08/07/2024 5:58 PM EDT [...] and culture (08/07/2024 4:18 PM EDT) Specific [place] Urine 1.015 1.003 - 1.030 LAB URINALYSIS [...] ORDERABLES Kiarra l Result Performing Organization Address [facility]/ZIP Co de Phone Number [facility] [address] [place] [address], [place] [phone] * [place] urine culture tube (08/07/2024 4:18 PM EDT) [facility] Extra Tube Hold for add-ons. 08/07/2024 7:01 PM EDT [facility] Comment:Auto resulted. Urine Urine specimen obtained by clean catch procedure / Unknown Non-blood Collection / Unknown 08/07/2024 4:18 PM EDT 08/07/2024 5:14 PM EDT Jose Raul Christopher Vergara LAB URINE ORDERABLES Kiarra l Result Performing Organization Address [facility]/ZIP Co de Phone Number [facility] [address] [place] [address], [place] [phone] * Troponin I high sensitivity (08/07/2024 2:29 PM EDT) Only the most recent of2 resultswithin the time period is included. [facility] High Sensitivity Troponin I 14 <=79 ng/L LAB CHEMISTRY METHOD 08/07/2024 3:42 PM EDT [facility] Blood Venous blood specimen / Unknown Venipuncture / Unknown 08/07/2024 2:29 PM EDT 08/07/2024 3:07 PM EDT Narrative [facility] - 08/07/2024 3:42 PM EDT High levels of biotin in samples may falsely decrease hsTroponin values. Use caution when interpreting hsTroponin results in patients taking biotin who exhibit renal impairment (eGFR <60) or in patients taking more than 20 mg/day of biotin. Natalie Vergara DO LAB BLOOD ORDERABLES Kiarra l Result [facility] [address] [place] [address], [place] [phone] * XR Chest 2 Views (08/07/2024 2:12 PM EDT) Anatomical Region Laterality Modality Body Radiographic Stella ging 08/07/2024 2:11 PM EDT Impressions 08/07/2024 2:12 PM EDT FINDINGS/IMPRESSION: Slight increase in hazy opacity involving the right lung base favored to represent volume loss and bronchovascular crowding though developing infiltrate not entirely excluded. No congestive heart failure. No acute osseous abnormality. -------- FINAL REPORT -------- Dictated By: Pedro Mg Dictated Date: 08/07/2024 14:11 ET Assigned Physician: Pedro Mg Reviewed and Electronically Signed By: Pedro Mg Signed Date: 08/07/2024 14:12 ET Workstation ID: [id number] Transcribed By: Self Edit Transcribed Date: 08/07/2024 [...] Signed Date: 08/07/2024 14:12 ET Workstation ID: [id number] Transcribed By: Self Edit Transcribed Date: 08/07/2024 14:11 ET us Natalie Vergara DO IMG XR PROCEDURES Final R esult * (ABNORMAL) CBC auto differential (08/07/2024 1:23 PM EDT) [facility] WBC 8.3 4.8 - 10.8 K/mcL LAB HEMETOLOGY METHOD 08/07/2024 1:46 PM EDT [facility] RBC 5.40 4.50 - 5.50 M/mcL LAB HEMETOLOGY METHOD 08/07/2024 1:46 PM EDT [facility] Hemoglobin 16.5 13.5 - 17.5 g/dL LAB HEMETOLOGY METHOD 08/07/2024 1:[facility] Hematocrit 50.8 42.0 - 54.0 % LAB HEMETOLOGY METHOD 08/07/2024 1:[facility] MCV 93.9 79.0 - 98.0 FL LAB HEMETOLOGY METHOD 08/07/2024 1:46 PM EDT [facility] MCH 30.5 27.0 - 32.0 pcg LAB HEMETOLOGY METHOD 08/07/2024 1:46 [facility] MCHC 32.5 32.0 - 37.0 g/dL LAB HEMETOLOGY METHOD 08/07/2024 1:46 [facility] RDW 13.7 11.0 - 15.0 % LAB HEMETOLOGY METHOD 08/07/2024 1:46 PM EDT [facility] Platelets 298 130 - 400 K/mcL LAB HEMETOLOGY METHOD 08/07/2024 1:46 [facility] MPV 9.2 7.0 - 11.0 FL LAB HEMETOLOGY METHOD 08/07/2024 1:46 [facility] NRBC 0.0 <1.0 % [...] LAB HEMETOLOGY METHOD 08/07/2024 1:46 PM EDT [facility] Blood Venous blood specimen / Unknown Venipuncture / Unknown 08/07/2024 1:23 PM EDT 08/07/2024 1:38 PM EDT us Natalie Vergara DO LAB BLOOD ORDERABLES Kiarra l Result Performing Organization Address [facility]/ZIP Co de Phone Number [facility] [address] [place] [address], [place] [phone] * B-type natriuretic peptide (08/07/2024 1:23 PM EDT) BNP 9 <=100 pcg/mL LAB CHEMISTRY METHOD 08/07/2024 2:45 PM EDT [facility] Blood Venous blood specimen / Unknown Venipuncture / Unknown 08/07/2024 1:23 PM EDT 08/07/2024 1:38 PM EDT Natalie Vergara DO LAB BLOOD ORDERABLES Kiarra l Result Performing Organization Address [facility]/ZIP Co de Phone Number [facility] [address] [place] [address], [place] [phone] * Magnesium (08/07/2024 1:23 PM EDT) Magnesium 2.2 1.9 - 2.6 mg/dL LAB CHEMISTRY METHOD 08/07/2024 2:07 PM EDT [facility] Blood Venous blood specimen / Unknown Venipuncture / Unknown 08/07/2024 1:23 PM EDT 08/07/2024 1:38 PM EDT us Natalie Vergara DO LAB BLOOD ORDERABLES Kiarra l Result [facility] [address] [place] [address], [place] [phone] * Lipase (08/07/2024 1:23 PM EDT) Pathologist [facility] Lipase 37 13 - 75 unit/L LAB CHEMISTRY METHOD 08/07/2024 2:07 PM T [facility] Blood Venous blood specimen / Unknown Venipuncture / Unknown 08/07/2024 1:23 PM EDT 08/07/2024 1:38 PM EDT us Natalie Vergara DO LAB BLOOD ORDERABLES Kiarra l Result [facility] [address] [place] [address], [place] [phone] * (ABNORMAL) Comprehensive metabolic panel (08/07/2024 1:23 PM EDT) [facility] Sodium 138 133 - 145 mmol/L LAB [...] 20.2 LAB CHEMISTRY METHOD 08/07/2024 2:07 PM T [facility] Calcium 9.4 8.5 - [...] DO LAB BLOOD ORDERABLES Kiarra l Result [facility] [address] [place] [address], [place] [phone] * ECG 12 lead (08/07/2024 1:18 PM EDT) Ventricular Rate ECG 86 BPM GEMUSE Atrial Rate 86 BPM GEMUSE P-R Interval 174 ms GEMUSE QRS Duration 100 ms GEMUSE Q-T Interval 356 ms GEMUSE QTc 426 ms GEMUSE P Wave [place] 73 degrees GEMUSE R Sw[place] 52 degrees GEMUSE T Sw[place] 93 degrees GEMUSE ECG Interpretation Normal sinus rhythm Possible Left atrial enlargement Minimal voltage criteria for LVH, may be normal variant ( [place] product ) Nonspecific T wave abnormality Abnormal ECG When compared with ECG of 17-JUL-2022 15:54, No significant change was found Confirmed by ULYSSES SHEETS ([id number]) on 08/09/2024 9:25:16 AM GEMUSE 08/07/2024 1:18 PM EDT 08/09/2024 9:25 AM EDT Natalie Vergara DO ECG ORDERABLES Final Res ult GEMUSE from Last 3 Months Insurance [place] - [place]ICARE Care Teams Yarn Inspector Relationship Specialty Start Date End Date Montserrat Goldman MD [address] [place] [address] , [address] Physician Associ D/B/A: [facility] TARYN Mendosa PCP - General 05/27/21
== END 2024-08-30 13:25 | disposition home or self-care (01) ==
LOC: HO.HMCH 11:49
PROVIDERS: PCP Internal Medicine
DX: R73.02 Impaired glucose tolerance (oral) (principal)

== ENCOUNTER → 2024-08-30 11:49 | Outpatient (BNVA) | payer MEDICARE, MEDICAID, SELFPAY | PROVIDERS: PCP Internal Medicine | DX: Z01.818 Encounter for other preprocedural examination (principal); R22.1 Localized swelling, mass and lump, neck; R73.02 Impaired glucose tolerance (oral); I71.43 Infrarenal abdominal aortic aneurysm, without rupture; R01.1 Cardiac murmur, unspecified; I10 Essential (primary) hypertension; I65.23 Occlusion and stenosis of bilateral carotid arteries; K59.04 Chronic idiopathic constipation; E78.5 Hyperlipidemia, unspecified; F17.200 Nicotine dependence, unspecified, uncomplicated; Z71.6 Tobacco abuse counseling | CPT/HCPCS: 83036; 99212 ==

== ENCOUNTER 2024-08-31 13:36 | Outpatient (REF) | payer MEDICARE, MEDICAID, SELFPAY ==
--- NOTE | ~2024-08-31 | CT_ITS ---
EXAMINATION: CT SOFT TISSUE NECK WITH CONTRAST CLINICAL INFORMATION: Evaluate bilateral palpable lumps in neck, previously evaluated by ultrasound. COMPARISON: Ultrasound head and neck 07/28/2024. TECHNIQUE: Following the intravenous administration of 60 mL of Omnipaque 350 intravenous contrast, helical imaging was performed in the axial plane with generation of coronal and sagittal reformatted images. This CT examination was performed using dose optimization techniques as appropriate, variously including the following: *Automated exposure control *Adjustment of mA and/or kV according to patient size (this includes techniques or standardized protocols for targeted exams where dose is matched to indication/reason for exam; i.e. extremities or head) *Use of iterative reconstruction technique FINDINGS: Lymph Nodes: -Normal. No abnormal lymphadenopathy. Carotid Sheath Structures: -Moderate left and mild right carotid bulb calcifications are present. -Otherwise normal. Salivary Glands: -Normal. Tongue Base/Floor of Mouth: -Normal -The patient is wearing dentures. Mucosal Space: - Normal. No lesions. Visceral Space: -Thyroid gland: Normal. -Larynx is normal. -Subglottic trachea is normal. Retropharangeal Space: -Normal. Parapharyngeal Fat Planes: -Normal. Airplane Mechanic Spaces: -Normal. Anterior Cervical Space: -Normal. Imaged Intracranial Contents: -No mass effect, edema, or abnormal enhancement. Cortical and dural venous sinuses are patent. The skull base is normal. Globes and Orbits: -Normal. There are bilateral lens replacements present. Paranasal Sinuses/Mastoids/Tympanic Spaces: -Normally aerated bilaterally. Lung Apices and Superior Mediastinal Structures: -Imaged lung apices demonstrate mild dependent groundglass changes, likely hypoventilatory/dependent atelectatic changes. Lung apices are otherwise clear. -Superior mediastinal structures demonstrate moderate atheromatous calcification of the aortic arch and proximal great vessels. -Mildly prominent main pulmonary artery, could represent mildly increased pulmonary pressures. Bony Structures: -No suspicious bone lesions. No fractures. -Normal TM joints. -Degenerative spondylosis throughout the cervical spine, most notable C5-6 and C6-7. OTHER: -Within the left posterior neck, there is a subcutaneous, dermal-based oval cystic mass with peripheral mild thin enhancement, measuring 1.3 x 1.0 x 1.5 cm, most consistent with a sebaceous cyst. This lies directly superficial to the left sternocleidomastoid muscle. -Within the right mid neck just inferior to the parotid tail, superficial to the platysma and dermally base, there is a second oval cystic mass with peripheral mild thin enhancement, measuring 2.2 x 1.4 x 2.3 cm, also consistent with a sebaceous cyst. This also lies directly anterolateral to the right sternocleidomastoid muscle. CT/CT soft tissue neck w IV con IMPRESSION: 1. Palpable abnormalities correlate with dermally based, thin peripherally enhancing bilateral sebaceous cysts as described above. Both are intimately associated with the skin. In review of the recent ultrasound, this is correlative. 2. There are no suspicious masses, or abnormal lymphadenopathy present. 3. Moderate left and mild right carotid bulb calcifications. Moderate aortic arch and proximal great vessel atheromatous calcifications. 4. Additional ancillary findings as discussed in the body of the report. Electronically signed by: Kenyon Valero MD 09/01/2024 07:56 AM EDT
--- OUTSIDE RECORDS SUMMARY | 2024-08-31 16:02 | XMS_ITS | Clinical Summary ---
Author Organization [facility] Address [address] [place] [address] Phone Care Team Providers Care World Designer Name Role Phone Montserrat Goldman MD Primary Care Provider [phone] Allergies No known active allergies Medications albuterol [...] EDT - 08/07/2024 7:21 PM EDT Emergency [facility] Emergency [address] [place] [address] Natalie Vergara DO Chest pain, [...] and culture (08/07/2024 4:18 PM EDT) Specific [place] Urine 1.015 1.003 - 1.030 LAB URINALYSIS - AUTOMATED METHOD 08/07/2024 5:[address] [facility] pH, Urine 6.0 5.0 - 8.0 pH LAB URINALYSIS - AUTOMATED METHOD 08/07/2024 5:[address] [facility] Leukocytes, Urine Negative Negative LAB URINALYSIS - AUTOMATED METHOD 08/07/2024 5:[address] [facility] Nitrite, Urine Negative Negative LAB URINALYSIS - AUTOMATED METHOD 08/07/2024 5:[address] [facility] Protein, Urine Negative <=Trace mg/dL LAB URINALYSIS - AUTOMATED METHOD 08/07/2024 5:[address] [facility] Glucose, Urine Negative Negative mg/dL LAB URINALYSIS - AUTOMATED METHOD 08/07/2024 5:[address] [facility] Ketones, Urine Negative Negative mg/dL LAB URINALYSIS - AUTOMATED METHOD 08/07/2024 5:[address] [facility] Urobilinogen, Urine 0.2 0.2 - 1.0 mg/dL LAB URINALYSIS - AUTOMATED METHOD 08/07/2024 5:[address] [facility] Bilirubin, Urine Negative Negative LAB URINALYSIS - AUTOMATED METHOD 08/07/2024 5:[address] [facility] Blood, Urine Negative Negative LAB URINALYSIS - AUTOMATED METHOD 08/07/2024 5:[address] [facility] Urine Urine specimen obtained by clean catch procedure / Unknown Non-blood Collection / Unknown 08/07/2024 4:18 PM EDT 08/07/2024 5:14 PM EDT Natalie Vergara LAB URINE ORDERABLES Kiarra l Result Performing Organization Address [place]/[facility]/ZIP Co de Phone Number [facility] [address] [place] [address], [place] [phone] * [place] urine culture tube (08/07/2024 4:18 PM EDT) [facility] Extra Tube Hold for add-ons. 08/07/2024 7:[address] [facility] Comment:Auto resulted. Urine Urine specimen obtained by clean catch procedure / Unknown Non-blood Collection / Unknown 08/07/2024 4:18 PM EDT 08/07/2024 5:14 PM EDT Jose Raul Christopher Vergara LAB URINE ORDERABLES Kiarra l Result Performing Organization Address [place]/[facility]/ZIP Co de Phone Number [facility] [address] [place] [address], [place] [phone] * Troponin I high sensitivity (08/07/2024 2:29 PM EDT) Only the most recent of2 resultswithin the time period is included. [facility] High Sensitivity Troponin I 14 <=79 ng/L LAB CHEMISTRY METHOD 08/07/2024 3:[address] [facility] Blood Venous blood specimen / Unknown Venipuncture / Unknown 08/07/2024 2:29 PM EDT 08/07/2024 3:[address] [facility] - 08/07/2024 3:42 PM EDT High levels of biotin in samples may falsely decrease hsTroponin values. Use caution when interpreting hsTroponin results in patients taking biotin who exhibit renal impairment (eGFR <60) or in patients taking more than 20 mg/day of biotin. Natalie Vergara DO LAB BLOOD ORDERABLES Kiarra l Result [facility] [address] [place] [address], [place] [phone] * XR Chest 2 Views (08/07/2024 2:12 [...] Signed Date: 08/07/2024 14:12 ET Workstation ID: [id number] Transcribed By: Self Edit Transcribed Date: 08/07/2024 [...] Signed Date: 08/07/2024 14:12 ET Workstation ID: [id number] Transcribed By: Self Edit Transcribed Date: 08/07/2024 14:11 ET us Natalie Vergara DO IMG XR PROCEDURES Final R esult * (ABNORMAL) CBC auto differential (08/07/2024 1:23 PM EDT) [facility] WBC 8.3 4.8 - 10.8 K/mcL LAB HEMETOLOGY METHOD 08/07/2024 1:[address] [facility] RBC 5.40 4.50 - 5.50 M/mcL LAB HEMETOLOGY METHOD 08/07/2024 1:[address] [facility] Hemoglobin 16.5 13.5 - 17.5 g/dL LAB HEMETOLOGY [facility] Hematocrit 50.8 42.0 - 54.0 % LAB [facility]EMETOLOGY METHOD [facility]/07/2024 [facility] MCV 93.9 79.0 - 98.0 FL LAB HEMETOLOGY METHOD 08/07/2024 1:[address] [facility] MCH 30.5 27.0 - 32.0 pcg LAB HEMETOLOGY METHOD [facility]/07/2024 [facility] MCHC 32.5 32.0 - 37.0 g/dL LAB HEMETOLOGY METHOD 08/07/2024 1:[facility] RDW 13.7 11.0 - 15.0 % LAB HEMETOLOGY METHOD 08/07/2024 1:[address] [facility] Platelets 298 130 - 400 K/mcL LAB HEMETOLOGY METHOD [facility]/07/2024 1:[facility] MPV 9.2 7.0 - 11.0 FL LAB HEMETOLOGY METHOD [facility]/07/2024 1:[facility] NRBC 0.0 <1.0 % LAB HEMETOLOGY METHOD 08/07/2024 1:[address] [facility] NRBC Absolute 0.00 <0.10 K/mcL LAB HEMETOLOGY METHOD 08/07/2024 1:[address] [facility] Neutrophils Relative 59.3 % LAB HEMETOLOGY METHOD 08/07/2024 1:[address] [facility] Lymphocytes Relative 23.8 % LAB HEMETOLOGY METHOD 08/07/2024 1:[address] [facility] Monocytes Relative 15.2 % LAB HEMETOLOGY METHOD 08/07/2024 1:[address] [facility] Eosinophils Relative 0.7 % LAB HEMETOLOGY METHOD 08/07/2024 1:[address] [facility] Basophils Relative 0.8 % LAB HEMETOLOGY METHOD 08/07/2024 1:[address] [facility] Immature Granulocytes Relative 0.2 % LAB HEMETOLOGY METHOD 08/07/2024 1:[address] [facility] Neutrophils Absolute 4.89 1.50 - 7.00 K/mcL LAB HEMETOLOGY METHOD 08/07/2024 1:[address] [facility] Lymphocytes Absolute 1.96 1.00 - 5.00 K/mcL LAB HEMETOLOGY METHOD 08/07/2024 1:[address] [facility] Monocytes Absolute 1.25(H) 0.20 - 1.00 K/mcL LAB HEMETOLOGY METHOD 08/07/2024 1:[address] [facility] Eosinophils Absolute 0.06 0.00 - 0.50 K/mcL LAB HEMETOLOGY METHOD 08/07/2024 1:[address] [facility] Basophils Absolute 0.07 0.00 - 0.20 K/mcL LAB HEMETOLOGY METHOD 08/07/2024 1:[address] [facility] Immature Granulocytes Absolute 0.02 0.00 - 0.03 K/mcL LAB HEMETOLOGY METHOD 08/07/2024 1:[address] [facility] Blood Venous blood specimen / Unknown Venipuncture / Unknown 08/07/2024 1:23 PM EDT 08/07/2024 1:38 PM EDT us Natalie Vergara DO LAB BLOOD ORDERABLES Kiarra l Result Performing Organization Address [place]/[facility]/ZIP Co de Phone Number [facility] [address] [place] [address], [place] [phone] * B-type natriuretic peptide (08/07/2024 1:23 PM EDT) BNP 9 <=100 pcg/mL LAB CHEMISTRY METHOD 08/07/2024 2:[address] [facility] Blood Venous blood specimen / Unknown Venipuncture / Unknown 08/07/2024 1:23 PM EDT 08/07/2024 1:38 PM EDT Natalie Vergara DO LAB BLOOD ORDERABLES Kiarra l Result Performing Organization Address [place]/[facility]/ZIP Co de Phone Number [facility] [address] [place] [address], [place] [phone] * Magnesium (08/07/2024 1:23 PM EDT) Magnesium 2.2 1.9 - 2.6 mg/dL LAB CHEMISTRY METHOD 08/07/2024 2:[address] [facility] Blood Venous blood specimen / Unknown Venipuncture / Unknown 08/07/2024 1:23 PM EDT 08/07/2024 1:38 PM EDT us Natalie Vergara DO LAB BLOOD ORDERABLES Kiarra l Result [facility] [address] [place] [address], [place] [phone] * Lipase (08/07/2024 1:23 PM EDT) Pathologist [facility] Lipase 37 13 - 75 unit/L LAB CHEMISTRY METHOD 08/07/2024 2:[address] [facility] Blood Venous blood specimen / Unknown Venipuncture / Unknown 08/07/2024 1:23 PM EDT 08/07/2024 1:38 PM EDT us Natalie Vergara DO LAB BLOOD ORDERABLES Kiarra l Result [facility] [address] [place] [address], [place] [phone] * (ABNORMAL) Comprehensive metabolic panel (08/07/2024 1:23 PM EDT) [facility] Sodium 138 133 - 145 mmol/L LAB CHEMISTRY METHOD 08/07/2024 2:[address] [facility] Potassium 3.9 3.5 - 5.5 mmol/L LAB CHEMISTRY METHOD 08/07/2024 2:[address] [facility] Chloride 105 96 - 110 mmol/L LAB CHEMISTRY METHOD 08/07/2024 2:[address] [facility] CO2 25 21 - 32 mmol/L LAB CHEMISTRY METHOD 08/07/2024 2:[address] [facility] Anion Gap 8 3 - 11 LAB CHEMISTRY METHOD 08/07/2024 2:[address] [facility] Glucose 127(H) 70 - 100 mg/dL LAB CHEMISTRY METHOD 08/07/2024 2:[address] [facility] BUN 21 5 - 25 mg/dL LAB CHEMISTRY METHOD 08/07/2024 2:[address] [facility] Creatinine 1.04 0.70 - 1.30 mg/dL LAB CHEMISTRY METHOD 08/07/2024 2:[address] [facility] eGFR 73 >=60 mL/min/1. 73m2 LAB CHEMISTRY METHOD 08/07/2024 2:[address] [facility] Comment:Calculation based on the Chronic Kidney Disease Epidemiology Collaboration (CKD-EPI) equation refit without adjustment for race. BUN/Creatinine Ratio 20.2 LAB CHEMISTRY METHOD 08/07/2024 2:[address] [facility] Calcium 9.4 8.5 - 10.5 mg/dL LAB CHEMISTRY METHOD 08/07/2024 2:[address] [facility] AST (SGOT) 33 10 - 42 unit/L LAB CHEMISTRY METHOD 08/07/2024 2:[address] [facility] ALT (SGPT) 46 10 - 60 unit/L LAB CHEMISTRY METHOD 08/07/2024 2:[address] [facility] Alkaline Phosphatase 83 42 - 121 unit/L LAB CHEMISTRY METHOD 08/07/2024 2:[address] [facility] Total Protein 7.3 6.0 - 8.0 g/dL LAB CHEMISTRY METHOD 08/07/2024 2:[address] [facility] Albumin 4.2 3.2 - 5.0 g/dL LAB CHEMISTRY METHOD 08/07/2024 2:[address] [facility] Total Bilirubin 0.5 0.0 - 1.4 mg/dL LAB CHEMISTRY METHOD 08/07/2024 2:[address] [facility] Blood Venous blood specimen / Unknown Venipuncture / Unknown 08/07/2024 1:23 PM EDT 08/07/2024 1:38 PM EDT us Natalie Vergara DO LAB BLOOD ORDERABLES Kiarra l Result [facility] [address] [place] [address], [place] [phone] * ECG 12 lead (08/07/2024 1:18 PM EDT) Ventricular Rate ECG 86 BPM GEMUSE Atrial Rate 86 BPM GEMUSE P-R Interval 174 ms GEMUSE QRS Duration 100 ms GEMUSE Q-T Interval 356 ms GEMUSE QTc 426 ms GEMUSE P Wave [place] 73 degrees GEMUSE R [place] 52 degrees GEMUSE T [place] 93 degrees GEMUSE ECG Interpretation Normal sinus rhythm Possible Left atrial enlargement Minimal voltage criteria for LVH, may be normal variant ( [place] product ) Nonspecific T wave abnormality Abnormal ECG When compared with ECG of 17-JUL-2022 15:54, No significant change was found Confirmed by ULYSSES SHEETS ([id number]) on 08/09/2024 9:25:16 AM GEMUSE 08/07/2024 1:18 PM EDT 08/09/2024 9:25 AM EDT Natalie Vergara DO ECG ORDERABLES Final Res ult GEMUSE from Last 3 Months Insurance [place] - [place] Care Teams World Designer Relationship Specialty Start Date End Date Montserrat Goldman MD [address] [place] [address] , [address] Physician Associ D/B/A: [facility] TARYN Mendosa PCP - General 05/27/21
== END 2024-08-31 13:37 | disposition home or self-care (01) ==
LOC: HO.CT 13:36
PROVIDERS: PCP Internal Medicine; Visit Provider Internal Medicine
DX: R22.1 Localized swelling, mass and lump, neck (principal)
CPT/HCPCS: 70491

== ENCOUNTER → 2024-08-31 13:37 | Outpatient (BNV) | payer MEDICARE, MEDICAID, SELFPAY | PROVIDERS: PCP Internal Medicine; Visit Provider Radiology Diagnostic Radiology | DX: R22.1 Localized swelling, mass and lump, neck (principal) | CPT/HCPCS: 70491 ==

== ENCOUNTER 2024-10-28 10:28 | Day surgery (SDC) | payer MEDICARE, MEDICAID, SELFPAY ==
--- OUTSIDE RECORDS SUMMARY | 2024-09-14 07:58 | XMS_ITS | Clinical Summary ---
Author Organization [facility] Address [address] [place] [address] Phone Care Team Providers Care Tax Credit Leasing Consultant Name Role Phone Montserrat Goldman MD Primary Care Provider [phone] Allergies No known active allergies Medications albuterol HFA (PROAIR HFA ; PROVENTIL HFA ; VENTOLIN HFA) 90 mcg/actuation inhaler Inhale 2 puffs by mouth every 4 (four) hours if needed for shortness of breath. 1 each 5 Active omeprazole (PriLOSEC) [address] capsule Take 1 capsule (20 mg total) by mouth 1 (one) time each day for 14 days. Do not crush or chew. 14 each 5 08/22/19 25 Active Problems No known active problems Encounters Date Type Department Care Team Description 08/07/2024 1:45 PM EDT - 08/07/2024 7:21 PM EDT Emergency [facility] Emergency [address] [place] [address] Natalie Vergara DO Chest pain, [...] 2024 01/02/2024, 04/17/2022, 09/20/2021, Additional history exists Influenza Vaccine (#1) 2024 01/02/2024, 2017 Hypertension/CHF/CAD Annual BMP Blood Test 08/07/2025 08/07/2024 DTaP,Tdap,and Td Vaccines (2 - Td or Tdap) 03/07/2032 03/07/2022 Pneumococcal Vaccine: 50+ Years Completed 06/23/2024 HIB [...] Last 3 Months Results * ECG-Annotated (08/09/2024) Provider Onbase MD ECG ORDERABLES Final Result * Urinalysis with reflex microscopic and culture (08/07/2024 4:18 PM EDT) Specific [place] Urine 1.015 1.003 - 1.030 LAB URINALYSIS - AUTOMATED METHOD 08/07/2024 5:20 PM [facility] pH, Urine 6.0 5.0 - 8.0 pH LAB URINALYSIS - AUTOMATED METHOD 08/07/2024 5:20 PM [facility] Leukocytes, Urine Negative Negative LAB URINALYSIS - AUTOMATED METHOD 08/07/2024 5:20 PM [facility] Nitrite, Urine Negative Negative LAB URINALYSIS - AUTOMATED METHOD 08/07/2024 5:20 PM [facility] Protein, Urine Negative <=Trace mg/dL LAB URINALYSIS - AUTOMATED METHOD 08/07/2024 5:20 PM [facility] Glucose, Urine Negative Negative mg/dL LAB URINALYSIS - AUTOMATED METHOD 08/07/2024 5:20 PM [facility] Ketones, Urine Negative Negative mg/dL LAB URINALYSIS - AUTOMATED METHOD 08/07/2024 5:20 PM [facility] Urobilinogen, Urine 0.2 0.2 - 1.0 mg/dL LAB URINALYSIS - AUTOMATED METHOD 08/07/2024 5:20 PM [facility] Bilirubin, Urine Negative Negative LAB URINALYSIS - AUTOMATED METHOD 08/07/2024 5:20 PM [facility] Blood, Urine Negative Negative LAB URINALYSIS - AUTOMATED METHOD 08/07/2024 5:20 PM [facility] Urine Urine specimen obtained by clean catch procedure / Unknown Non-blood Collection / Unknown 08/07/2024 4:18 PM EDT 08/07/2024 5:14 PM EDT us Natalie Vergara DO LAB URINE ORDERABLES Kiarra l Result [facility] [address] [place] [address], [place] [phone] * [place] urine culture tube (08/07/2024 4:18 PM EDT) [facility] Extra Tube Hold for add-ons. 08/07/2024 7:01 PM EDT [facility] Comment:Auto resulted. Urine Urine specimen obtained by clean catch procedure / Unknown Non-blood Collection / Unknown 08/07/2024 4:18 PM EDT 08/07/2024 5:14 PM EDT us Whale Paththompson Vergara DO LAB URINE ORDERABLES Kiarra l Result Performing Organization Address [facility] Co de Phone Number [facility] [address] [place] [address], [place] [phone] * Troponin I high sensitivity (08/07/2024 2:29 PM EDT) Only the most recent of2 resultswithin the time period is included. [facility] High Sensitivity Troponin I 14 <=79 ng/L LAB CHEMISTRY METHOD 08/07/2024 3:42 PM EDT [facility] Blood Venous blood specimen / Unknown Venipuncture / Unknown 08/07/2024 2:29 PM EDT 08/07/2024 3:07 PM EDT Narrative [facility] - 08/07/2024 3:42 PM EDT High levels of biotin in samples may falsely decrease hsTroponin values. Use caution when interpreting hsTroponin results in patients taking biotin who exhibit renal impairment (eGFR <60) or in patients taking more than 20 mg/day of biotin. us Whale Paththompson [employer] Dakota Vergara DO LAB BLOOD ORDERABLES Kiarra l Result Performing Organization Address [facility]/ZIP Co de Phone Number [facility] [address] [place] [address], [place] [phone] * XR Chest 2 Views (08/07/2024 2:12 [...] Signed Date: 08/07/2024 14:12 ET Workstation ID: [id number] Transcribed By: Self Edit Transcribed Date: 08/07/2024 [...] Signed Date: 08/07/2024 14:12 ET Workstation ID: [id number] Transcribed By: Self Edit Transcribed Date: 08/07/2024 14:11 ET us Natalie Vergara DO IMG XR PROCEDURES Final R esult * (ABNORMAL) CBC auto differential (08/07/2024 1:23 PM EDT) WBC 8.3 4.8 - 10.8 K/mcL LAB HEMETOLOGY METHOD 08/07/2024 1:46 PM [facility] RBC 5.40 4.50 - 5.50 M/mcL LAB HEMETOLOGY METHOD 08/07/2024 1:46 PM [facility] Hemoglobin 16.5 13.5 - 17.5 g/dL LAB HEMETOLOGY METHOD 08/07/2024 1:46 PM [facility] Hematocrit 50.8 42.0 - 54.0 % LAB HEMETOLOGY METHOD 08/07/2024 1:46 PM [facility] MCV 93.9 79.0 - 98.0 FL LAB HEMETOLOGY METHOD 08/07/2024 1:46 PM [facility] MCH 30.5 27.0 - 32.0 pcg LAB HEMETOLOGY METHOD 08/07/2024 1:46 PM [facility] MCHC 32.5 32.0 - 37.0 g/dL LAB HEMETOLOGY METHOD 08/07/2024 1:46 PM [facility] RDW 13.7 11.0 - 15.0 % LAB HEMETOLOGY METHOD 08/07/2024 1:46 PM [facility] Platelets 298 130 - 400 K/mcL LAB HEMETOLOGY METHOD 08/07/2024 1:46 PM [facility] MPV 9.2 7.0 - 11.0 FL LAB HEMETOLOGY METHOD 08/07/2024 1:46 PM [facility] NRBC 0.0 <1.0 % LAB HEMETOLOGY METHOD 08/07/2024 1:46 PM [facility] NRBC Absolute 0.00 <0.10 K/mcL LAB HEMETOLOGY METHOD 08/07/2024 1:46 PM [facility] Neutrophils Relative 59.3 % LAB HEMETOLOGY METHOD 08/07/2024 1:46 PM [facility] Lymphocytes Relative 23.8 % LAB HEMETOLOGY METHOD 08/07/2024 1:46 PM [facility] Monocytes Relative 15.2 % LAB HEMETOLOGY METHOD 08/07/2024 1:46 PM [facility] Eosinophils Relative 0.7 % LAB HEMETOLOGY METHOD 08/07/2024 1:46 PM [facility] Basophils Relative 0.8 % LAB HEMETOLOGY METHOD 08/07/2024 1:46 PM [facility] Immature Granulocytes Relative 0.2 % LAB HEMETOLOGY METHOD 08/07/2024 1:46 PM [facility] Neutrophils Absolute 4.89 1.50 - 7.00 K/mcL LAB HEMETOLOGY METHOD 08/07/2024 1:46 PM [facility] Lymphocytes Absolute 1.96 1.00 - 5.00 K/mcL LAB HEMETOLOGY METHOD 08/07/2024 1:46 PM [facility] Monocytes Absolute 1.25(H) 0.20 - 1.00 K/mcL LAB HEMETOLOGY METHOD 08/07/2024 1:46 PM [facility] Eosinophils Absolute 0.06 0.00 - 0.50 K/mcL LAB HEMETOLOGY METHOD 08/07/2024 1:46 PM [facility] Basophils Absolute 0.07 0.00 - 0.20 K/mcL LAB HEMETOLOGY METHOD 08/07/2024 1:46 PM [facility] Immature Granulocytes Absolute 0.02 0.00 - 0.03 K/mcL LAB HEMETOLOGY METHOD 08/07/2024 1:46 PM [facility] Blood Venous blood specimen / Unknown Venipuncture / Unknown 08/07/2024 1:23 PM EDT 08/07/2024 1:38 PM EDT Natalie Vergara LAB BLOOD ORDERABLES Kiarra l Result Performing Organization Address [facility]/ZIP Co de Phone Number [facility] [address] [place] [address], [place] [phone] * B-type natriuretic peptide (08/07/2024 1:23 PM EDT) Pathologist [facility] BNP 9 <=100 pcg/mL LAB CHEMISTRY METHOD 08/07/2024 2:45 PM EDT [facility] Blood Venous blood specimen / Unknown Venipuncture / Unknown 08/07/2024 1:23 PM EDT 08/07/2024 1:38 PM EDT Natalie Vergara LAB BLOOD ORDERABLES Kiarra l Result Performing Organization Address [facility] de Phone Number [facility] [address] [place] [address], [place] [phone] * Magnesium (08/07/2024 1:23 PM EDT) [facility] Magnesium 2.2 1.9 - 2.6 mg/dL LAB CHEMISTRY METHOD 08/07/2024 2:07 PM EDT [facility] Blood Venous blood specimen / Unknown Venipuncture / Unknown 08/07/2024 1:23 PM EDT 08/07/2024 1:38 PM EDT Natalie Vergara LAB BLOOD ORDERABLES Kiarra l Result Performing Organization Address [facility]/ZIP Co de Phone Number [facility] [address] [place] [address], [place] [phone] * Lipase (08/07/2024 1:23 PM EDT) [facility] Lipase 37 13 - 75 unit/L LAB CHEMISTRY METHOD 08/07/2024 2:07 PM [facility] Blood Venous blood specimen / Unknown Venipuncture / Unknown 08/07/2024 1:23 PM EDT 08/07/2024 1:38 PM EDT us Natalie Vergara DO LAB BLOOD ORDERABLES Kiarra l Result [facility] [address] [place] [address], [place] [phone] * (ABNORMAL) Comprehensive metabolic panel (08/07/2024 1:23 PM EDT) Sodium 138 133 - 145 mmol/L LAB CHEMISTRY METHOD 08/07/2024 2:07 PM [facility] Potassium 3.9 3.5 - 5.5 mmol/L LAB CHEMISTRY METHOD 08/07/2024 2:07 PM [facility] Chloride 105 96 - 110 mmol/L LAB CHEMISTRY METHOD 08/07/2024 2:07 PM [facility] CO2 25 21 - 32 mmol/L LAB CHEMISTRY METHOD 08/07/2024 2:07 PM [facility] Anion Gap 8 3 - 11 LAB CHEMISTRY METHOD 08/07/2024 2:07 PM [facility] Glucose 127(H) 70 - 100 mg/dL LAB CHEMISTRY METHOD 08/07/2024 2:07 PM [facility] BUN 21 5 - 25 mg/dL LAB CHEMISTRY METHOD 08/07/2024 2:07 PM [facility] Creatinine 1.04 0.70 - 1.30 mg/dL LAB CHEMISTRY METHOD 08/07/2024 2:07 PM [facility] eGFR 73 >=60 mL/min/1. 73m2 LAB CHEMISTRY METHOD 08/07/2024 2:07 PM EDT [facility] Comment:Calculation based on the Chronic Kidney Disease Epidemiology Collaboration (CKD-EPI) equation refit without adjustment for race. BUN/Creatinine Ratio 20.2 LAB CHEMISTRY METHOD 08/07/2024 2:07 PM EDT [facility] Calcium 9.4 8.5 - 10.5 mg/dL LAB CHEMISTRY METHOD 08/07/2024 2:07 PM [facility] AST (SGOT) 33 10 - 42 unit/L LAB CHEMISTRY METHOD 08/07/2024 2:07 PM [facility] ALT (SGPT) 46 10 - 60 unit/L LAB CHEMISTRY METHOD 08/07/2024 2:07 PM [facility] Alkaline Phosphatase 83 42 - 121 unit/L LAB CHEMISTRY METHOD 08/07/2024 2:07 PM [facility] Total Protein 7.3 6.0 - 8.0 g/dL LAB CHEMISTRY METHOD [facility]/07[facility]24 [facility] Albumin 4.2 3.2 - 5.0 g/dL LAB CHEMISTRY METHOD 08/07/2024 2:07 PM [facility] Total Bilirubin 0.5 0.0 - 1.4 mg/dL LAB CHEMISTRY METHOD 08/07/2024 2:07 PM [facility] Blood Venous blood specimen / Unknown Venipuncture / Unknown 08/07/2024 1:23 PM EDT 08/07/2024 1:38 PM EDT us Natalie Vergara DO LAB BLOOD ORDERABLES Kiarra l Result [facility] [address] [place] [address], [place] [phone] * ECG 12 lead (08/07/2024 1:18 PM EDT) Ventricular Rate ECG 86 BPM GEMUSE Atrial Rate 86 BPM GEMUSE P-R Interval 174 ms GEMUSE QRS Duration 100 ms GEMUSE Q-T Interval 356 ms GEMUSE QTc 426 ms GEMUSE P Wave [place] 73 degrees GEMUSE R [place] 52 degrees GEMUSE T [place] 93 degrees GEMUSE ECG Interpretation Normal sinus rhythm Possible Left atrial enlargement Minimal voltage criteria for LVH, may be normal variant ( Elier product ) Nonspecific T wave abnormality Abnormal ECG When compared with ECG of 17-JUL-2022 15:54, No significant change was found Confirmed by ULYSSES SHEETS ([id number]) on 08/09/2024 9:25:16 AM GEMUSE 08/07/2024 1:18 PM EDT 08/09/2024 9:25 AM EDT us Natalie Vergara DO ECG ORDERABLES Final Res ult GEMUSE from Last 3 Months Insurance MEDICAID - [place] MEDICARE Care Teams Tax Credit Leasing Consultant Relationship Specialty Start Date End Date Montserrat Goldman MD [address] [place] [address] , [address] [facility] D[facility] ATRY[facility] Mendosa PCP - General 05/27/21
--- OUTSIDE RECORDS SUMMARY | 2024-09-14 07:58 | XMS_ITS | Clinical Summary ---
Author Organization [employer] Address [address] [place] [address] [address] [place] [address] Care Team Providers Care Continuous Pillowcase Cutter Name Role Phone Unavailable Primary Care Provider Unavailabl e Immunizations Immunization Administration Dates Next Due Influenza, High Dose [...] 02/26/2021, Additional history exists Influenza Vaccine (#1) 2024 12/09/2017 HIB Vaccines Aged Out No longer [...] age to complete this topic Insurance MEDICARE [facility]
[2024-10-18 12:45] VITALS: BMI 29.1
--- NOTE | 2024-10-18 13:21 | HO.ANESPROP2 ---
Documented by User: Hui Ortega NP 10/18/24 13:29 HPI - Anesthesia Eval Consult details Narrative: 78yo M for Excision of Neck Mass on the Left and Right, 10/28/24 Pt missed in-person PAT appt. T/C to patient: denies CP/SOB with yardwork, walking dog, house work Medically optimized per PCP Vascular optimized. [place]s [facility] Vascular for AAA (3.7x4.8cm) and asymptomatic carotid ds (L ICA 0-49%, R ICA 50-79%). Plan for surveilence imagaing 02/2025. [facility] Active Problems Active Problems: All Active Problems Preoperative clearance (Acute) Bilateral carotid artery stenosis (Acute) Encounter for Medicare annual wellness exam (Acute) Neck mass (Acute) Murmur (Acute) Exertional chest pain (Acute) AAA (abdominal aortic aneurysm) without rupture (Acute) Trigger finger, left middle finger (Acute) Trigger finger, right middle finger (Acute) Trigger finger, right ring finger (Acute) Trigger finger (Acute) Subcutaneous mass of neck (Acute) Mass of right side of neck (Acute) Constipation (Acute) Cholelithiasis (Acute) Abdominal aortic aneurysm (Acute) Umbilical hernia (Acute) Peripheral visual field defect of left eye (Acute) Vitamin D deficiency (Acute) Obstructive sleep apnea (adult) (pediatric) (Acute) Nicotine dependence with current use (Acute) Hospital discharge follow-up (Acute) Carotid bruit present (Acute) Glaucoma screening (Acute) Neck pain (Acute) Constipation (Acute) Fatigue (Acute) Uncontrolled hypertension (Acute) Left shoulder tendonitis (Acute) Sprain of acromioclavicular joint (Acute) Multiple masses of neck (Acute) Impaired glucose tolerance (Acute) Dyslipidemia (Acute) Essential hypertension (Acute) Past Medical History Medical History (Updated 10/18/24 @ 12:43 by Lexus Joseph RN) Sleep apnea Arthritis Multiple masses of neck Impaired glucose tolerance Dyslipidemia Essential hypertension Family History Family History Father No problems noted. Mother No problems noted. Surgical History Surgical History (Updated 10/18/24 @ 11:56 by Lexus Joseph RN) Hx of neck surgery History of prostate surgery History of knee replacement Social History Social History Housing: House Are you a primary physician assistant primary care to a significant other at home: No Do you presently have visiting nurse or other home services: No Alcohol intake: current Alcohol intake frequency: does not drink Alcohol type: beer Patient Tobacco Use Status: Never used Tobacco Tobacco use type: Cigarette Cigarettes Per Day: 3 e-Cigarette/Vaping Use: Never Used Second Hand Smoke Exposure: No Use of substances other than those prescribed or required for medical reasons: No Have you been hit, kicked, punched, or otherwise hurt by someone within the past year? If so, by whom?: No Are you DNR?: No Advance Directives: No Advance Directives Information Provided: Yes Advance Directives on File: No Poor oral hygiene: Yes service: No Current occupational status: retired and disabled Cognitive needs: No Hearing needs: No Vision needs: Yes (glasses) Meds Allergies Allergy/AdvReac Type Severity Reaction Status Date / Time No Known Allergies Allergy Mild NOT Verified 08/30/24 12:40 APPLICABLE Home Medications ?Medication ?Instructions ?Recorded ?Confirmed ?Last Taken ?Type aspirin 81 mg tablet,delayed 81 mg PO DAILY 06/26/20 10/28/24 Unknown History release (Adult Low Dose Aspirin) Exam Height,Weight and Vital Signs: Height 5 ft 9 in Weight 89.358 kg Pertinent Lab Results Pertinent Lab Results: Laboratory Tests 08/08/24 08:47 WBC 8.0 Hgb 15.8 Hct 46.9 Plt Count 273 Sodium 142 Potassium 4.2 Chloride 105 Carbon Dioxide 28 BUN 23 H Creatinine 1.01 Narrative Narrative: EKG 08/2024 NSR @ 86 Possible LAE Minimal voltage criteria for LVH Nonspecific T wave abn CT soft tissue neck w IV con 2024 IMPRESSION: 1. Palpable abnormalities correlate with dermally based, thin peripherally enhancing bilateral sebaceous cysts as described above. Both are intimately associated with the skin. In review of the recent ultrasound, this is correlative. 2. There are no suspicious masses, or abnormal lymphadenopathy present. 3. Moderate left and mild right carotid bulb calcifications. Moderate aortic arch and proximal great vessel atheromatous calcifications. 4. Additional ancillary findings as discussed in the body of the report. AR cardiolite stress test 2022 IMPRESSION: 1. Myocardial perfusion imaging study shows no clear evidence of any ischemia or infarction. Likely normal perfusion. 2. Gated LVEF is 62% during stress and 52% during rest but visually much higher than that. 3. Transient ischemic dilatation not present Abd US 2024 IMPRESSION: 1. 3.7 x 4.8 cm distal abdominal aortic aneurysm.. US carotid duplex BI 2022 IMPRESSION: 1. RIGHT: Moderate, hemodynamically significant stenosis of the proximal right internal carotid artery corresponding to a 50-79% stenosis by velocity criteria. There is a marked external carotid artery stenosis again noted. 2. LEFT: Minimal, non-hemodynamically significant stenosis of the proximal left internal carotid artery corresponding to a 0-49% stenosis by velocity criteria. More severe, probably significant stenosis in the mid ICA as described above. There is a marked external carotid artery stenosis again noted. 3. There is no change in the category severity of disease when compared to the previous study dated 07/01/2021. Assessment and Plan Assessment Anesthesia Assessment: Chart Reviewed Documented by User: Carlos Alonzo MD 10/28/24 11:34 [facility] Past Medical History Medical History (Updated 10/18/24 @ 12:43 by Lexus Joseph RN) Sleep apnea Arthritis Multiple masses of neck Impaired glucose tolerance Dyslipidemia Essential hypertension Family History Family History Father No problems noted. Mother No problems noted. Family history of problems with anesthesia: No Surgical History Surgical History (Updated 10/18/24 @ 11:56 by Lexus Joseph RN) Hx of neck surgery History of prostate surgery History of knee replacement History of Problems with Anesthesia: No Social History Social History Housing: House Are you a primary physician assistant primary care to a significant other at home: No Do you presently have visiting nurse or other home services: No Alcohol intake: current Alcohol intake frequency: does not drink Alcohol type: beer Patient Tobacco Use Status: Never used Tobacco Tobacco use type: Cigarette Cigarettes Per Day: 3 e-Cigarette/Vaping Use: Never Used Second Hand Smoke Exposure: No Use of substances other than those prescribed or required for medical reasons: No Have you been hit, kicked, punched, or otherwise hurt by someone within the past year? If so, by whom?: No Are you DNR?: No Advance Directives: No Advance Directives Information Provided: Yes Advance Directives on File: No Poor oral hygiene: Yes service: No Current occupational status: retired and disabled Cognitive needs: No Hearing needs: No Vision needs: Yes (glasses) Meds Allergies Allergy/AdvReac Type Severity Reaction Status Date / Time No Known Allergies Allergy Mild NOT Verified 08/30/24 12:40 APPLICABLE Home Medications ?Medication ?Instructions ?Recorded ?Confirmed ?Last Taken ?Type aspirin 81 mg tablet,delayed 81 mg PO DAILY 06/26/20 10/28/24 Unknown History release (Adult Low Dose Aspirin) Exam Airway Mallampati Class: I TM Dist: >3cm Neck ROM: Full Denture: Upper and Lower Heart: ok Lungs: ok Assessment and Plan Assessment Anesthesia Assessment: Anesthesia Plan Discussed Final Anesthetic Review Family History of Problems with Anesthesia: No History of Problems with Anesthesia: No NPO: Yes ASA Class: III and IV Final Preanesthetic Review: No Changes in Pt Med Stat, Meds/Allgs Chart Reviewed, Consent Obtained/Reviewed and Anes Risks/Benef Reviewed Patient Risk: High Procedure Risk: Low Anesthetic Plan Anesthetic Plan: MAC: and Agree w/ Assess. and Plan Disposition: Standard PACU
[2024-10-28 10:41] VITALS: BP 176/74; PULSE 97; RESP 16; TEMP 36.4; O2SAT 96
--- NOTE | 2024-10-28 10:50 | MHC.SHP ---
Pre-Procedural Eval Section A - 24 Hr Update-Section A only Date of Service: 10/28/24 Section B - Complete if H&P > 30 days Chief Complaint: Localized swelling, mass and lump, neck Details of Present Illness: He has subcutaneous masses on both the left and right side of the neck really epidermal inclusion cysts Relevant Family History (Specify if Yes): No Relevant Social History: None Present Medications: see Short Stay Collaborative assessment Medical History: Significant History (Sleep apnea, aortic aneurysm, constipation, fatigue, hypertension) Allergies: Allergies Allergy/AdvReac Type Severity Reaction Status Date / Time No Known Allergies Allergy Mild NOT Verified 08/30/24 12:40 APPLICABLE Review of Systems Sugical H&P ROS: Negative: Constitution, Cardiovascular and Respiratory Exam Surgical H&P Exam: Normal: Heart, Normal: Lungs and Normal: Abdomen and Significant Findings: HEENT (cystic masses on both left and right neck) Plan Diagnosis/Plan: Unchanged I have reviewed the history and physical and performed a pertinent physical examination on my patient. No changes have occurred unless specified. Time Spent With Patient Time: Total time managing care of this patient today ____ minutes.
[2024-10-28] MEDS: Lactated Ringers 1,000 ML 100 ML IVCONT (10:52)
--- NOTE | 2024-10-28 11:51 | P.OP_ITS ---
Operative Note Operative Note Date of Service: 10/28/24 Narrative: Preop diagnosis: Epidermal inclusion cyst, left neck and right neck Postop diagnosis: Epidermal inclusion cyst, right neck, 2.5 cm; epidermal inclusion cyst, left neck, 1.5 cm Procedure: Excision of epidermal inclusion cyst left neck and right neck Surgeon: Clint Austin MD Artificial Flowers Starcher: Leroy Bolanos MS III The patient is an 79-year-old male with note of cystic masses on both the left and right neck areas. This appeared to be an epidermal inclusion cyst. He understood the technique of the planned procedure as well as the risks, benefits, and alternatives He was brought to the operating room placed in reclining position under monitored anesthesia care. A surgical time-out was done. The right neck was prepped and draped in the usual sterile fashion. The cystic mass was seen and this was about 2.5 cm in diameter. I infiltrated this area with lidocaine 1%. I made a short incision on the skin overlying the cyst with a blade 15. This carried down through the full-thickness of the skin and subcutaneous fat with the cyst capsule was visualized. I sharply dissected the cyst capsule off of the rest of the subcutaneous layer and overlying skin using the blade 15. As well as Metzenbaum scissors. This has contained sebaceous material consistent with a epidermal inclusion cyst. This was sent as a specimen I irrigated. I closed the incision with full-thickness nylon 3-0 simple interrupted sutures. A Band-Aid was applied We then proceeded to prepped and draped in the area of the cyst in the left neck. Lidocaine 1% was used for local anesthesia. I made a short incision on the skin overlying the cyst with a blade 15. This carried down sharply through the full-thickness of the skin and subcutaneous fat until the cyst capsule was visualized. I sharply dissected the cyst capsule off the rest of the subcutaneous layer circumferentially until this was delivered. This was sent as specimen. This was about 1.5 cm in diameter. I closed the incision with full-thickness nylon 3-0 simple interrupted sutures. A Band-Aid was applied. The procedure was completed. The patient tolerated the procedure well. There were no immediate complications. Initial and final counts of sponges and instruments were correct. Estimated blood loss about 20 cc. The patient was awakened without difficulty and transferred to the recovery room with stable vital signs.
[2024-10-28 11:56] VITALS: BP 170/73; PULSE 82; RESP 16; TEMP 36.4; O2SAT 97
[2024-10-28 12:01] VITALS: BP 171/67; PULSE 86; RESP 17; O2SAT 96
[2024-10-28 12:06] VITALS: BP 167/75; PULSE 69; RESP 17; O2SAT 94
[2024-10-28 12:10] VITALS: BP 176/71; PULSE 69; RESP 17; O2SAT 97
[2024-10-28 12:25] VITALS: BP 148/73; PULSE 74; RESP 17; O2SAT 97
== END 2024-10-28 12:55 | disposition home or self-care (01) ==
PROVIDERS: PCP Internal Medicine; Visit Provider Surgery
PROC: (CPT 11423; principal; 2024-10-28 13:30)
DX: L72.0 Epidermal cyst (principal); I10 Essential (primary) hypertension; R01.1 Cardiac murmur, unspecified; I71.43 Infrarenal abdominal aortic aneurysm, without rupture; R73.02 Impaired glucose tolerance (oral); E78.5 Hyperlipidemia, unspecified; G47.33 Obstructive sleep apnea (adult) (pediatric); R53.83 Other fatigue; Z79.82 Long term (current) use of aspirin; Z79.899 Other long term (current) drug therapy; F17.210 Nicotine dependence, cigarettes, uncomplicated; Z98.890 Other specified postprocedural states; I65.23 Occlusion and stenosis of bilateral carotid arteries; K59.04 Chronic idiopathic constipation
CPT/HCPCS: 11423; 11422; 88304; J0690; J2003; J2250; J2704; J2795; J3010

== ENCOUNTER → 2024-10-28 10:28 | Outpatient (BNV) | payer MEDICARE, MEDICAID, SELFPAY | PROVIDERS: PCP Internal Medicine; Visit Provider Surgery | DX: L72.0 Epidermal cyst (principal) | CPT/HCPCS: 11422; 11423 ==

== ENCOUNTER 2024-11-10 13:33 | Outpatient (AMB) | payer MEDICARE, MEDICAID, SELFPAY ==
[2024-11-10 13:36] VITALS: BP 170/62; PULSE 84; O2SAT 97
--- NOTE | 2024-11-10 13:36 | MHC.PC.OV ---
Vital Signs 11/10/24 13:36 Weight 195 lb 6 oz BP 170/62 H Blood Pressure Location Lt brachial Position Sitting Pulse 84 Pulse Source Pulse Oximeter Pulse Oximetry (%) 97 Oxygen Delivery Method Room Air Intake Visit Reasons: bp Restaurant Shift Leader Required: No Accompanied by: Self / Same As Patient Allergies No Known Allergies Allergy (Mild, Verified 11/10/24 13:48) NOT APPLICABLE Medication List - Last Reconciled 11/10/24 by Montserrat Goldman MD acetaminophen (Pain Relief (acetaminophen)) 650 mg (2 x 325 mg) PO Q6H PRN aspirin (Adult Low Dose Aspirin) 81 mg PO DAILY atorvastatin 40 mg PO BEDTIME 90 days cholecalciferol (vitamin D3) (Vitamin D3) 25 mcg PO DAILY diltiazem HCl CD 240 mg PO DAILY 90 days hydralazine 100 mg PO TID 90 days hydrochlorothiazide 25 mg PO DAILY 90 days ibuprofen 600 mg PO Q6H PRN lisinopril 40 mg PO DAILY sennosides (senna) 8.6 mg PO BEDTIME PRN 90 days Tobacco use date assessed: 08/30/24 Fall risk assessment: No Falls in past year Last assessed Fall Risk: 11/10/24 Dental Screening Dental Screen Date: 11/10/24 Did you have a dental visit in the last 12 months?: No Did you have a dental problem in the last 6 months where you did not have access to dental care?: No Was dental information given to patient?: No HPI HPI Comments History of Present Illness Details The patient is an 79-year-old male presenting for follow-up of chronic conditions, including hypertension and impaired glucose tolerance. The patient has a history of essential hypertension, which was noted to be slightly elevated during this visit. He is currently on multiple antihypertensive medications, including Diltiazem, Hydralazine, Hydrochlorothiazide, and Lisinopril. The plan is to recheck his blood pressure in three weeks. The patient also has a history of impaired glucose tolerance with an A1c of 6.3% less than 3 months ago. He is on a regimen that includes Atorvastatin for hyperlipidemia, which was noted to be slightly elevated previously. The patient reports issues with constipation, for which he takes Senna. He has been advised to see a concierge receptionist and will be provided with a stronger laxative in liquid form. Additionally, the patient has a history of vitamin D deficiency, which was noted to be low during the last assessment. [facility] Medical History (Updated 11/10/24 @ 14:02 by Montserrat Goldman MD) Sleep apnea Arthritis Multiple masses of neck Dyslipidemia Essential hypertension Surgical History Hx of neck surgery History of prostate surgery History of knee replacement Family History Father No problems noted. Mother No problems noted. Social History Housing: House Are you a primary resident care technician to a significant other at home: No Do you presently have visiting nurse or other home services: No Alcohol intake: current Alcohol intake frequency: does not drink Alcohol type: beer Patient Tobacco Use Status: Never used Tobacco Tobacco use type: Cigarette Cigarettes Per Day: 3 e-Cigarette/Vaping Use: Never Used Second Hand Smoke Exposure: No service: No Current occupational status: retired and disabled Cognitive needs: No Hearing needs: No Vision needs: Yes (glasses) Questionnaire PHQ-9 Over the last 2 weeks, how often have you been bothered by any of the following problems? 1. Little interest or pleasure in doing things: not at all 2. Feeling down, depressed, or hopeless: several days 3. Trouble falling or staying asleep, or sleeping too much: more than half the days 4. Feeling tired or having little energy: more than half the days 5. Poor appetite or overeating: not at all 6. Feeling bad about yourself - or that you are a failure or have let yourself or your family down: not at all 7. Trouble concentrating on things, such as reading the newspaper or watching television: not at all 8. Moving or speaking so slowly that other people could have noticed. Or the opposite - being so fidgety or restless that you have been moving around a lot more than usual: not at all 9. Thoughts that you would be better off or of hurting yourself in some way: not at all Total score: 5 Depression Screening Interpretation: Positive Depression Screening Follow-up: Existing condition and Follow-up Visit Requested Depression Screening Done: Yes 39236 - PHQ-9 Billing: Yes Source: Developed by Drs. Nik Riley, Alda Johnson, Kevin Mello and colleagues, with an educational wilver from [employer]. Thrive Questionnaire Date Thrive assessed: 06/23/24 I am a: Patient What is your living situation today?: I have a steady place to live Within the past 12 months, did the food you bought not last and you didn't have the money to get more?: Never true Within the past 12 months, did you worry whether your food would run out before you got money to buy more?: Never true Do you have trouble paying for medicines?: No Do you have trouble getting transportation to medical appointments?: No Do you have trouble paying your heating and electricity bill?: No Do you have trouble taking care of your child, family member or friend?: No Do you have trouble with day-to-day activities such as bathing, preparing meals, shopping, managing finances, etc.?: No Are you currently unemployed and looking for a job?: Yes Are you interested in more education?: No Please select the resources that you would like help with: None Currently or been in a relationship where the following occur: No concerns reported THRIVE Score: 0 AUDIT C Alcohol Use Questionnaire (AUDIT-C) 1. How often do you have a drink containing alcohol?: 2-4 times a month 2. How many drinks containing alcohol do you have on a typical day when you are drinking?: 3 or 4 3. How often do you have six or more drinks on one occasion?: Never Total Score: 3 BUCKY-7 AMB Questionnaire BUCKY-7 Date BUCKY - 7 assessed: 06/23/24 Feeling nervous, anxious, or on edge: 0 = Not at all Not being able to stop or control worryin = More than half the days Worrying too much about different things: 2 = More than half the days Trouble relaxin = More than half the days Being so restless that it is hard to sit still: 2 = More than half the days Becoming easily annoyed or irritable: 0 = Not at all Feeling afraid as if something awful might happen: 0 = Not at all Total BUCKY-7 score (0-4 normal; 5-9 mild; 10-14 moderate; 15-21 severe): 8 Source: Developed by Drs. Nik Riley, Alda Johnson, Kevin Mello and colleagues, with an educational wilver from [employer]. BUCKY-7 Assessment Billing BUCKY-7 Assessment Tool: BUCKY-7 Assessment 94157 Review of Systems Const All systems reviewed & are unremarkable except as noted in HPI and below Card Denies chest pain at rest, Denies chest pain with activity, Denies edema, Denies irregular heart rhythm, Denies claudication, Denies dyspnea, Denies dyspnea on exertion, Denies orthopnea, Denies paroxysmal nocturnal dyspnea and Denies slow heart rate Resp Denies cough, Denies dyspnea and Denies dyspnea on exertion Neuro Denies lack of coordination Physical exam (Primary Care) Vital Signs: Last Vital Signs Pulse 84 11/10/24 13:36 BP 170/62 H 11/10/24 13:36 Pulse Ox 97 11/10/24 13:36 Oxygen Delivery Method Room Air 11/10/24 13:36 Tobacco/Smoking Status: Tobacco use Status Tobacco use date assessed 08/30/24 11/10/24 13:41 Patient Tobacco Use Status Never used Tobacco 11/10/24 13:41 Tobacco use type Cigarette 11/10/24 13:41 e-Cigarette/Vaping Use Never Used 11/10/24 13:41 PHQ-9: PHQ-9 Score PHQ-9: Total score 5 11/10/24 13:41 Depression Screening Interpretation: Positive Depression Screening Follow-up: Existing condition and Follow-up Visit Requested Thrive Assessment: Date of Thrive Assessment Date Thrive assessed 06/23/24 11/10/24 13:41 Currently or been in a relationship where the following occur: No concerns reported Resp Effort & Inspection: normal respiratory effort Auscultation: clear to auscultation bilaterally Cardio Jugular venous distension: no JVD Rate: regular rate Rhythm: regular rhythm Heart sounds: S1 normal heart sound present and S2 normal heart sound present Extrem General: Yes full ROM Coding Level of Care Code Est Pt Level 4 (01773) Complex EM visit Add On G2211 Diagnoses Essential hypertension I10 Dyslipidemia E78.5 Impaired glucose tolerance R73.02 Chronic idiopathic constipation K59.04 Additional Codes PHQ-9 - 40053 - PHQ-9 Billing: Yes ([id number]) BUCKY-7 Assessment Billing - BUCKY-7 Assessment Tool: BUCKY-7 Assessment 81180 ([id number]) Time Spent (min) 23 Assessment & Plan Assessment & Plan (1) Essential hypertension: Code(s): I10 - Essential (primary) hypertension Category: Medical (2) Dyslipidemia: Code(s): E78.5 - Hyperlipidemia, unspecified Category: Medical (3) Impaired glucose tolerance: Code(s): R73.02 - Impaired glucose tolerance (oral) Category: Medical (4) Chronic idiopathic constipation: Code(s): K59.04 - Chronic idiopathic constipation Category: Medical Plan Plan Patient was informed and verbally consented to the use of an ambient scribe for clinic note documentation during this visit. 1. Essential (primary) hypertension I10 The patient's blood pressure was noted to be elevated during the visit. He is currently on a regimen of Diltiazem, Hydralazine, Hydrochlorothiazide, and Lisinopril. A follow-up appointment is scheduled in three weeks to reassess blood pressure control. 2. Type 2 diabetes mellitus without complications E11.9 HCC 19 The patient's diabetes is well-controlled with an A1c of 6.3. 3. Hyperlipidemia, unspecified E78.5 The patient is on Atorvastatin for hyperlipidemia, which was previously noted to be slightly elevated. 4. Slow transit constipation K59.01 The patient reports constipation and is currently taking Senna. He will be referred to gastroenterology and prescribed a stronger laxative in liquid form. Orders: Orders Microalbumin, Random (w Creat) 4 Months R80.9 - Proteinuria, unspecified Lipid Panel 4 Months E78.5 - Hyperlipidemia, unspecified Comprehensive [place]. Panel Fast 4 Months I10 - Essential (primary) hypertension Referrals Gastroenterology Referral K59.04 - Chronic idiopathic constipation Medications: New lactulose 20 grams (30 mL) PO BID PRN 1,200 mL 6RF constipation 30 days Discontinued sennosides (senna) Discontinued Reason: Patient Completed Course 8.6 mg PO BEDTIME 90 days PRN 90 tabs 1RF constipation
--- OUTSIDE RECORDS SUMMARY | 2024-11-10 14:51 | XMS_ITS | Clinical Summary ---
Author Organization [employer] Address [address] [place] [address] [address] [place] [address] Care Team Providers Care Patent Attorney Name Role Phone Unavailable Primary Care Provider [...] 03/08/2022 03/07/2022 COVID-19 Vaccine (6 - season) 2024 04/17/2022, 09/20/2021, 02/26/2021, Additional history exists Influenza [...] to complete this topic Insurance MEDICARE [facility]
--- OUTSIDE RECORDS SUMMARY | 2024-11-10 14:51 | XMS_ITS | Clinical Summary ---
Author Organization [facility] Address [address] [place] [address] Phone Care Team Providers Care Entry Level Project Engineer Name Role Phone Montserrat Goldman MD Primary Care Provider [phone] Allergies No known active allergies Medications albuterol HFA (PROAIR HFA ; PROVENTIL HFA ; VENTOLIN HFA) 90 mcg/actuation inhaler Inhale 2 puffs by mouth every 4 (four) hours if needed for shortness of breath. 1 each 5 Active ciprofloxacin (CIPRO) 500 mg tablet Take 1 tablet (500 mg total) by mouth 2 (two) times a day for 10 days. 20 tablet 5 11/11/19 25 Active Active Problems No known active problems Encounters Date Type Department Care Team Description 10/31/2024 9:59 AM EDT - 10/31/2024 12:26 PM EDT Emergency [facility] Emergency [address] [place] [address] Varun Stuherland MD Complicated UTI (urinary tract infection) (Primary Dx) Discharge Disposition: Home or Self [...] Sign Reading Time Taken Comments Blood Pressure 171/85 10/31/2024 12:23 PM EDT Pulse 78 10/31/2024 12:23 PM EDT Temperature 36.7 C (98.1 F) 10/31/2024 12:23 PM EDT Respiratory Rate 18 10/31/2024 12:23 PM EDT Oxygen Saturation 100% 10/31/2024 12:23 PM EDT Inhaled Oxygen Concentration - - Weight 84.8 kg (187 lb) 10/31/2024 9:33 AM EDT Height 175.3 cm (5' 9 ) 10/31/2024 9:33 AM EDT Body Mass Index 27.62 10/31/2024 9:33 AM EDT Plan of Treatment Health Maintenance Due Date Last Done Comments RSV Immunization Adult Patients (1 - 1-dose 75+ series) 10/27/2018 Cholesterol Screening (Lipid Panel) 02/08/2022 Falls Risk Assessment 02/08/2022 Medicare Annual Wellness Visit 02/08/2022 Social Influencers of Health Screening 02/08/2022 Depression Screening 03/09/2024 Zoster Vaccines (2 of 2) 10/03/2024 08/08/2024 COVID-19 Vaccine ( season) 2024 01/02/2024, 04/17/2022, 09/20/2021, Additional history exists Influenza Vaccine (#1) 2024 01/02/2024, 2017 Hypertension/CHF/CAD Annual BMP Blood Test 10/31/2025 10/31/2024, 08/07/2024 DTaP,Tdap,and Td Vaccines (2 - Td [...] Procedure Name Priority Date/Time Associated Diagnosis Comments URINALYSIS WITH REFLEX MICROSCOPIC STAT 10/31/2024 11:20 AM EDT URINALYSIS WITH REFLEX MICROSCOPIC STAT 10/31/2024 11:20 AM EDT CBC WITH AUTO DIFFERENTIAL STAT 10/31/2024 10:35 AM EDT COMPREHENSIVE METABOLIC PANEL STAT 10/31/2024 10:35 AM EDT CBC AND DIFFERENTIAL STAT 10/31/2024 10:[address] ABDOMEN PELVIS WO CONTRAST STAT 10/31/2024 10:20 AM EDT from Last 3 Months Results * (ABNORMAL) Urinalysis with reflex microscopic (10/31/2024 11:20 AM EDT) Specific [place] Urine 1.016 1.003 - 1.030 LAB URINALYSIS - AUTOMATED METHOD 10/31/2024 11:39 AM [facility] pH, Urine 6.5 5.0 - 8.0 pH LAB URINALYSIS - AUTOMATED METHOD 10/31/2024 11:39 AM [facility] Leukocytes, Urine Large(A) Negative LAB URINALYSIS - AUTOMATED METHOD 10/31/2024 11:39 AM [facility] Nitrite, Urine Negative Negative LAB URINALYSIS - AUTOMATED METHOD 10/31/2024 11:39 AM [facility] Protein, Urine 100(A) <=Trace mg/dL LAB URINALYSIS - AUTOMATED METHOD 10/31/2024 11:39 AM [facility] Glucose, Urine Negative Negative mg/dL LAB URINALYSIS - AUTOMATED METHOD 10/31/2024 11:39 AM [facility] Ketones, Urine Negative Negative mg/dL LAB URINALYSIS - AUTOMATED METHOD 10/31/2024 11:39 AM [facility] Urobilinogen, Urine 0.2 0.2 - 1.0 mg/dL LAB URINALYSIS - AUTOMATED METHOD 10/31/2024 11:39 AM [facility] Bilirubin, Urine Negative Negative LAB URINALYSIS - AUTOMATED METHOD 10/31/2024 11:39 AM [facility] Blood, Urine Small(A) Negative LAB URINALYSIS - AUTOMATED METHOD 10/31/2024 11:39 AM [facility] RBC, Urine 72.2(H) 0 - 4 /HPF LAB URINALYSIS - AUTOMATED METHOD 10/31/2024 11:39 AM [facility] WBC, Urine 308.2(H) 0 - 4 /HPF LAB URINALYSIS - AUTOMATED METHOD 10/31/2024 11:39 AM [facility] Squamous Epithelial, Urine 5 0 - 60 /LPF LAB URINALYSIS - AUTOMATED METHOD 10/31/2024 11:39 AM [facility] Bacteria, Urine Negative Negative /HPF LAB URINALYSIS - AUTOMATED METHOD 10/31/2024 11:39 AM [facility] Hyaline Casts, Urine 0.4 0 - 3 /LPF LAB URINALYSIS - AUTOMATED METHOD 10/31/2024 11:39 AM [facility] Urine Urine specimen obtained by clean catch procedure / Unknown Non-blood Collection / Unknown 10/31/2024 11:20 AM EDT 10/31/2024 11:31 AM EDT us Varun Sutherland MD LAB URINE ORDERABLES Final Resul t [facility] [address] [place] [address], [place] [phone] * (ABNORMAL) CBC auto differential (10/31/2024 10:35 AM EDT) [facility] WBC 6.8 4.8 - 10.8 K/mcL LAB HEMETOLOGY METHOD [facility] RBC 4.50 4.50 - 5.50 M/mcL LAB HEMETOLOGY METHOD [facility] Hemoglobin 14.2 13.5 - 17.5 g/dL LAB HEMETOLOGY METHOD 10/31/2024 11:15 AM [facility] Hematocrit 42.9 42.0 - 54.0 % LAB HEMETOLOGY METHOD 10/31/2024 11:15 AM [facility] MCV 95.1 79.0 - 98.0 FL LAB HEMETOLOGY METHOD 10/31/2024 11:15 AM [facility] MCH 31.5 27.0 - 32.0 pcg LAB HEMETOLOGY METHOD 10/31/2024 11:15 AM [facility] MCHC 33.1 32.0 - 37.0 g/dL LAB HEMETOLOGY METHOD 10/31/2024 11:15 AM [facility] RDW 13.9 11.0 - 15.0 % LAB HEMETOLOGY METHOD 10/31/2024 11:15 AM [facility] Platelets 269 130 - 400 K/mcL LAB HEMETOLOGY METHOD 10/31/2024 11:15 AM [facility] MPV 9.3 7.0 - 11.0 FL LAB HEMETOLOGY METHOD 10/31/2024 11:15 AM [facility] NRBC 0.0 <1.0 % LAB HEMETOLOGY METHOD 10/31/2024 11:15 AM [facility] NRBC Absolute 0.00 <0.10 K/mcL LAB HEMETOLOGY METHOD 10/31/2024 11:15 AM [facility] Neutrophils Relative 73.1 % LAB HEMETOLOGY METHOD 10/31/2024 11:15 AM [facility] Lymphocytes Relative 14.3 % LAB HEMETOLOGY METHOD 10/31/2024 11:15 AM [facility] Monocytes Relative 9.6 % LAB HEMETOLOGY METHOD 10/31/2024 11:15 AM [facility] Eosinophils Relative 1.8 % LAB HEMETOLOGY METHOD 10/31/2024 11:15 AM [facility] Basophils Relative 0.9 % LAB HEMETOLOGY METHOD 10/31/2024 11:15 AM [facility] Immature Granulocytes Relative 0.3 % LAB HEMETOLOGY METHOD 10/31/2024 11:15 AM [facility] Neutrophils Absolute 4.98 1.50 - 7.00 K/mcL LAB HEMETOLOGY METHOD 10/31/2024 11:15 AM [facility] Lymphocytes Absolute 0.97(L) 1.00 - 5.00 K/mcL LAB HEMETOLOGY METHOD 10/31/2024 11:15 AM [facility] Monocytes Absolute 0.65 0.20 - 1.00 K/mcL LAB HEMETOLOGY METHOD 10/31/2024 11:15 AM [facility] Eosinophils Absolute 0.12 0.00 - 0.50 K/mcL LAB HEMETOLOGY METHOD 10/31/2024 11:15 AM [facility] Basophils Absolute 0.06 0.00 - 0.20 K/mcL LAB HEMETOLOGY METHOD 10/31/2024 11:15 AM [facility] Immature Granulocytes Absolute 0.02 0.00 - 0.03 K/mcL LAB HEMETOLOGY METHOD 10/31/2024 11:15 AM [facility] Blood Venous blood specimen / Unknown Venipuncture / Unknown 10/31/2024 10:35 AM EDT 10/31/2024 11:12 AM EDT us Varun Sutherland MD LAB BLOOD ORDERABLES Final Resul t [facility] [address] [place] [address], * (ABNORMAL) Comprehensive metabolic panel (10/31/2024 10:35 AM EDT) Sodium 140 133 - 145 mmol/L LAB CHEMISTRY METHOD 10/31/2024 11:57 AM [facility] Potassium 4.0 3.5 - 5.5 mmol/L LAB CHEMISTRY METHOD 10/31/2024 11:57 AM [facility] Chloride 107 96 - 110 mmol/L LAB CHEMISTRY METHOD 10/31/2024 11:57 AM [facility] CO2 29 21 - 32 mmol/L LAB CHEMISTRY METHOD 10/31/2024 11:57 AM [facility] Anion Gap 4 3 - 11 LAB CHEMISTRY METHOD 10/31/2024 11:57 AM [facility] Glucose 168(H) 70 - 100 mg/dL LAB CHEMISTRY METHOD 10/31/2024 11:57 AM [facility] BUN 15 5 - 25 mg/dL LAB CHEMISTRY METHOD 10/31/2024 11:57 AM [facility] Creatinine 0.84 0.70 - 1.30 mg/dL LAB CHEMISTRY METHOD 10/31/2024 11:57 AM [facility] eGFR 88 >=60 mL/min/1. 73m2 LAB CHEMISTRY METHOD 10/31/2024 11:57 AM [facility] Comment:Calculation based on the Chronic Kidney Disease Epidemiology Collaboration (CKD-EPI) equation refit without adjustment for race. BUN/Creatinine Ratio 17.9 LAB CHEMISTRY METHOD 10/31/2024 11:57 AM T [facility] Calcium 9.3 8.5 - 10.5 mg/dL LAB CHEMISTRY METHOD 10/31/2024 11:57 AM [facility] AST (SGOT) 25 10 - 42 unit/L LAB CHEMISTRY METHOD 10/31/2024 11:57 AM [facility] ALT (SGPT) 37 10 - 60 unit/L LAB CHEMISTRY METHOD 10/31/2024 11:57 AM [facility] Alkaline Phosphatase 67 42 - 121 unit/L LAB CHEMISTRY METHOD 10/31/2024 11:57 AM [facility] Total Protein 6.3 6.0 - 8.0 g/dL LAB CHEMISTRY METHOD 10/31/2024 11:57 AM [facility] Albumin 3.7 3.2 - 5.0 g/dL LAB CHEMISTRY METHOD 10/31/2024 11:57 AM [facility] Total Bilirubin 0.3 0.0 - 1.4 mg/dL LAB CHEMISTRY METHOD 10/31/2024 11:57 AM [facility] Blood Venous blood specimen / Unknown Venipuncture / Unknown 10/31/2024 10:35 AM EDT 10/31/2024 11:12 AM EDT us Varun Sutherland MD LAB BLOOD ORDERABLES Final Resul t [facility] [address] [place] [address], * CT Abdomen Pelvis wo Contrast (10/31/2024 10:20 AM EDT) Anatomical Region Laterality Modality Body Computed Tomogra phy 10/31/2024 10:3 4 AM EDT Impressions 10/31/2024 10:41 AM EDT No renal collecting system calculus. Cholelithiasis. Stable fusiform infrarenal abdominal aortic aneurysm. No acute findings in the abdomen and pelvis. -------- FINAL REPORT -------- Dictated By: Channing Vargas Dictated Date: 10/31/2024 10:34 ET Assigned Physician: Channing Vargas Reviewed and Electronically Signed By: Channing Vargas Signed Date: 10/31/2024 10:41 ET Workstation ID: [id number] Transcribed By: Self Edit Transcribed Date: 10/31/2024 10:34 ET Narrative 10/31/2024 10:41 AM EDT PROCEDURE: CT of the abdomen and pelvis without intravenous contrast. HISTORY: Flank pain, kidney stone suspected. COMPARISON: 06/25/2021. TECHNIQUE: Noncontrast CT of the abdomen and pelvis with coronal and sagittal reformats. Dose length product: 1233 mGy-cm. FINDINGS: Lung bases: Mild dependent atelectasis. Mild segmental bronchiectasis in the right lower lobe and mild segmental bronchial wall thickening in the left lower lobe. Cardiac: Mild coronary artery and aortic annular calcification. Liver: Limited evaluation without intravenous contrast. No visible abnormality. Biliary: Several small layering calcified gallstones. No biliary ductal dilatation or visible ductal calculus. Pancreas: Limited evaluation without intravenous contrast. No visible abnormality. Spleen: Limited evaluation without intravenous contrast. Calcified granuloma. Adrenal glands: Normal. Kidneys: Limited evaluation without intravenous contrast. No visible abnormality. Normal appearance of the ureters. Retroperitoneum: No mass or adenopathy. Abdominal vasculature: Moderate atherosclerotic calcifications. Fusiform dilatation of the infrarenal aorta, measuring approximately 3.3 cm AP, unchanged compared with the previous exam. Bowel/mesentery: No obstruction or adenopathy. No mass or ascites. Normal appendix. Abdominal wall: Small fat-containing paraumbilical hernia. Pelvic nodes: No adenopathy. Pelvic organs: Mild mural thickening of the urinary bladder. Radiation seeds in the prostate. Bones: Bones appear demineralized. Degenerative changes of the spine, hips, SI joints, and pubic symphysis.. Procedure Note Channing Vargas MD - 10/31/2024 PROCEDURE: CT of the abdomen and pelvis without intravenous contrast. HISTORY: Flank pain, kidney stone suspected. COMPARISON: 06/25/2021. TECHNIQUE: Noncontrast CT of the abdomen and pelvis with coronal andsagittal reformats. Dose length product: 1233 mGy-cm. FINDINGS: Lung bases: Mild dependent atelectasis. Mild segmental bronchiectasis inthe right lower lobe and mild segmental bronchial wall thickening in theleft lower lobe. Cardiac: Mild coronary artery and aortic annular calcification. Liver: Limited evaluation without intravenous contrast. No visibleabnormality. Biliary: Several small layering calcified gallstones. No biliary ductaldilatation or visible ductal calculus. Pancreas: Limited evaluation without intravenous contrast. No visibleabnormality. Spleen: Limited evaluation without intravenous contrast. Calcifiedgranuloma. Adrenal glands: Normal. Kidneys: Limited evaluation without intravenous contrast. No visibleabnormality. Normal appearance of the ureters. Retroperitoneum: No mass or adenopathy. Abdominal vasculature: Moderate atherosclerotic calcifications. Fusiformdilatation of the infrarenal aorta, measuring approximately 3.3 cm AP,unchanged compared with the previous exam. Bowel/mesentery: No obstruction or adenopathy. No mass or ascites.Normal appendix. Abdominal wall: Small fat-containing paraumbilical hernia. Pelvic nodes: No adenopathy. Pelvic organs: Mild mural thickening of the urinary bladder. Radiationseeds in the prostate. Bones: Bones appear demineralized. Degenerative changes of the spine,hips, SI joints, and pubic symphysis.. IMPRESSION: No renal collecting system calculus. Cholelithiasis. Stable fusiform infrarenal abdominal aortic aneurysm. No acute findings in the abdomen and pelvis. -------- FINAL REPORT -------- Dictated By: Channing Vargas Dictated Date: 10/31/2024 10:34 ET Assigned Physician: Channing Vargas Reviewed and Electronically Signed By: Channing Vargas Signed Date: 10/31/2024 10:41 ET Workstation ID: [id number] Transcribed By: Self Edit Transcribed Date: 10/31/2024 10:34 ET Varun Sutherland MD [facility] [place]ED[place] Final Result from Last 3 Months Insurance [place] - [place] MEDICARE Care Teams Entry Level Project Engineer Relationship Specialty Start Date End Date Montserrat Goldman MD [address] [place] [address] , [address] Physician Associ D/B/A: [facility] [place], [place] PCP - General 05/27/21
== END 2024-11-10 14:01 | disposition home or self-care (01) ==
LOC: HO.HMCH 13:34
PROVIDERS: PCP Internal Medicine; Visit Provider Internal Medicine
DX: I10 Essential (primary) hypertension (principal); E78.5 Hyperlipidemia, unspecified; R73.02 Impaired glucose tolerance (oral); K59.04 Chronic idiopathic constipation

== ENCOUNTER → 2024-11-10 13:33 | Outpatient (BNVA) | payer MEDICARE, MEDICAID, SELFPAY | PROVIDERS: PCP Internal Medicine; Visit Provider Internal Medicine | DX: I10 Essential (primary) hypertension (principal); K59.00 Constipation, unspecified; E55.9 Vitamin D deficiency, unspecified; E78.5 Hyperlipidemia, unspecified; K59.04 Chronic idiopathic constipation; E11.9 Type 2 diabetes mellitus without complications; K59.01 Slow transit constipation; R80.9 Proteinuria, unspecified; Z79.899 Other long term (current) drug therapy | CPT/HCPCS: 96127; 99212 ==

== ENCOUNTER 2024-11-14 09:53 | Outpatient (AMB) | payer MEDICARE, MEDICAID, SELFPAY ==
--- NOTE | 2024-11-14 10:17 | MHC.OFFVIS ---
Vital Signs 11/14/24 10:22 Weight 195 lb BP 140/67 H Blood Pressure Location Rt brachial Position Sitting Pulse 77 Intake Visit Reasons: s/p excision of neck mass left & right neck Intake Note: Patient here s/p excision on right and left neck. Patient c/o: itch along incisions. Denies bleeding, oozing. Analytical Research Chemist Required: No Accompanied by: Self / Same As Patient Allergies No Known Allergies Allergy (Mild, Verified 11/14/24 10:23) NOT APPLICABLE HPI HPI s/p excision of neck mass left & right neck: Details: Overall doing well. Denies pain. Endorses some itchiness on both sides occasionally. Denies drainage. Denies fevers or chills PFSH Medical History (Updated 11/10/24 @ 14:02 by Montserrat Goldman MD) Sleep apnea Arthritis Multiple masses of neck Dyslipidemia Essential hypertension Surgical History (Updated 11/14/24 @ 10:40 by Ronaldo Simpson PA-C) Hx of neck surgery History of prostate surgery History of knee replacement Family History Father No problems noted. Mother No problems noted. Social History Housing: House Are you a primary animal care provider to a significant other at home: No Do you presently have visiting nurse or other home services: No Alcohol intake: current Alcohol intake frequency: does not drink Alcohol type: beer Patient Tobacco Use Status: Never used Tobacco Tobacco use type: Cigarette Cigarettes Per Day: 3 e-Cigarette/Vaping Use: Never Used Second Hand Smoke Exposure: No service: No Current occupational status: retired and disabled Cognitive needs: No Hearing needs: No Vision needs: Yes (glasses) Physical Exam Vital Signs: Last Vital Signs Pulse 77 11/14/24 10:22 BP 140/67 H 11/14/24 10:22 Const General: comfortable and no acute distress Orientation/consciousness: patient oriented x3 HEENT Other: Right neck: Well healed excision site mild scabbing. No discharge nontender, no erythema. Three sutures in place Left neck: Well healed excision site mild scabbing, no discharge, nontender no erythema. Four sutures in place Resp Effort & Inspection: normal respiratory effort and able to speak in complete sentences Neuro General: patient oriented x3 Assessment & Plan Assessment & Plan (1) Multiple masses of neck: Code(s): R22.1 - Localized swelling, mass and lump, neck Category: Medical (2) Hx of excision of epidermal inclusion cyst: Code(s): Z98.890 - Other specified postprocedural states; Z87.2 - Personal history of diseases of the skin and subcutaneous tissue Category: Surgical Plan 79-year-old male who presented to the office s/p bilateral cyst excision on neck. Overall patient doing well denies pain or drainage at the excision sites. He does state that there has been some itching, this is likely due to the sutures and scabbing. Reassured him that this will improve with time. I advised him to avoid creams or lotions on the area for now. He is okay to shower can lightly pat dry. On exam the excision sites appear to be healing well, there was some mild scabbing bilaterally. There was no drainage or surrounding redness, no concern for infection at this time. I removed 3 sutures from the right excision site and 4 sutures from the left. He tolerated this well. There were no remaining sutures. We discussed the pathology results, both excisions were epidermal inclusion cyst. At this point no longer requiring follow up. He can follow up as needed for any concerns in the future Coding Level of Care Code Est Pt Level 3 (74893) Diagnoses Multiple masses of neck R22.1 Hx of excision of epidermal inclusion cyst Z98.890; Z87.2
[2024-11-14 10:22] VITALS: BP 140/67; PULSE 77
--- OUTSIDE RECORDS SUMMARY | 2024-11-14 11:30 | XMS_ITS | Clinical Summary ---
Author Organization [facility] Address [address] [place] [address] Phone Care Team Providers Care Global Vp Creative + Content Marketing Name Role Phone Montserrat Goldman MD Primary Care Provider [phone] Allergies No known active allergies Medications albuterol [...] days. 20 tablet 5 11/11/19 25 Active Problems No known active problems Encounters Date Type Department Care Team Description 10/31/2024 9:59 AM EDT - 10/31/2024 12:26 PM EDT Emergency [facility] Emergency [address] [place] [address] Varun Sutherland MD Complicated UTI (urinary tract infection) (Primary [...] reflex microscopic (10/31/2024 11:20 AM EDT) Specific [place] Urine 1.016 1.003 - 1.030 LAB URINALYSIS - AUTOMATED METHOD 10/31/2024 11:39 AM [facility] pH, Urine 6.5 5.0 - 8.0 pH LAB URINALYSIS - AUTOMATED METHOD 10/31/2024 11:39 AM [facility] Leukocytes, Urine Large(A) Negative LAB URINALYSIS - AUTOMATED METHOD 10/31/2024 11:39 AM [facility] Nitrite, Urine Negative Negative LAB URINALYSIS - AUTOMATED METHOD 10/31/2024 11:39 AM [facility] Protein, Urine 100(A) <=Trace mg/dL LAB URINALYSIS - AUTOMATED METHOD 10/31/2024 11:39 AM [facility] Glucose, Urine Negative Negative mg/dL LAB URINALYSIS - AUTOMATED METHOD 10/31/2024 11:39 AM [facility] Ketones, Urine Negative Negative mg/dL LAB URINALYSIS - AUTOMATED METHOD 10/31/2024 11:39 AM [facility] Urobilinogen, Urine 0.2 0.2 - 1.0 mg/dL LAB URINALYSIS - AUTOMATED METHOD 10/31/2024 11:39 AM [facility] Bilirubin, Urine Negative Negative LAB URINALYSIS - AUTOMATED METHOD 10/31/2024 11:39 AM [facility] Blood, Urine Small(A) Negative LAB URINALYSIS - AUTOMATED METHOD 10/31/2024 11:39 AM [facility] RBC, Urine 72.2(H) 0 - 4 /HPF LAB URINALYSIS - AUTOMATED METHOD 10/31/2024 11:39 AM [facility] WBC, Urine 308.2(H) 0 - 4 /HPF LAB URINALYSIS - AUTOMATED METHOD 10/31/2024 11:39 AM [facility] Squamous Epithelial, Urine 5 0 - 60 /LPF LAB URINALYSIS - AUTOMATED METHOD 10/31/2024 11:39 AM [facility] Bacteria, Urine Negative Negative /HPF LAB URINALYSIS - AUTOMATED METHOD 10/31/2024 11:39 AM [facility] Hyaline Casts, Urine 0.4 0 - 3 /LPF LAB URINALYSIS - AUTOMATED METHOD 10/31/2024 11:39 AM [facility] Urine Urine specimen obtained by clean catch procedure / Unknown Non-blood Collection / Unknown 10/31/2024 11:20 AM EDT 10/31/2024 11:31 AM EDT us Varun Sutherland MD LAB URINE ORDERABLES Final Resul t [facility] [address] [place] [address], [place] [phone] * (ABNORMAL) CBC auto differential (10/31/2024 10:35 AM EDT) [facility] Signature WBC 6.8 4.8 - 10.8 K/mcL LAB HEMETOLOGY METHOD [facility] RBC 4.50 4.50 - 5.50 M/mcL LAB HEMETOLOGY METHOD 10/31/2024 11:[address] [facility] Hemoglobin 14.2 13.5 - 17.5 g/dL LAB HEMETOLOGY METHOD 10/31/2024 11:15 AM [facility] Hematocrit 42.9 42.0 - 54.0 % LAB HEMETOLOGY METHOD 10/31/2024 11:15 AM [facility] MCV 95.1 79.0 - 98.0 FL LAB HEMETOLOGY METHOD 10/31/2024 11:15 AM [facility] MCH 31.5 27.0 - 32.0 pcg LAB HEMETOLOGY METHOD 10/31/2024 11:15 AM [facility] MCHC 33.1 32.0 - 37.0 g/dL LAB HEMETOLOGY METHOD 10/31/2024 11:15 AM [facility] RDW 13.9 11.0 - 15.0 % LAB HEMETOLOGY METHOD 10/31/2024 11:15 AM [facility] Platelets 269 130 - 400 K/mcL LAB HEMETOLOGY METHOD 10/31/2024 11:15 AM [facility] MPV 9.3 7.0 - 11.0 FL LAB HEMETOLOGY METHOD 10/31/2024 11:15 AM [facility] NRBC 0.0 <1.0 % LAB HEMETOLOGY METHOD 10/31/2024 11:15 AM [facility] NRBC Absolute 0.00 <0.10 K/mcL LAB HEMETOLOGY METHOD 10/31/2024 11:15 AM [facility] Neutrophils Relative 73.1 % LAB HEMETOLOGY METHOD 10/31/2024 11:15 AM [facility] Lymphocytes Relative 14.3 % LAB HEMETOLOGY METHOD 10/31/2024 11:15 AM [facility] Monocytes Relative 9.6 % LAB HEMETOLOGY METHOD 10/31/2024 11:15 AM [facility] Eosinophils Relative 1.8 % LAB HEMETOLOGY METHOD 10/31/2024 11:15 AM [facility] Basophils Relative 0.9 % LAB HEMETOLOGY METHOD 10/31/2024 11:15 AM [facility] Immature Granulocytes Relative 0.3 % LAB HEMETOLOGY METHOD 10/31/2024 11:15 AM [facility] Neutrophils Absolute 4.98 1.50 - 7.00 K/mcL LAB HEMETOLOGY METHOD 10/31/2024 11:15 AM [facility] Lymphocytes Absolute 0.97(L) 1.00 - 5.00 K/mcL LAB HEMETOLOGY METHOD 10/31/2024 11:15 AM [facility] Monocytes Absolute 0.65 0.20 - 1.00 K/mcL LAB HEMETOLOGY METHOD 10/31/2024 11:15 AM [facility] Eosinophils Absolute 0.12 0.00 - 0.50 K/mcL LAB HEMETOLOGY METHOD 10/31/2024 11:15 AM [facility] Basophils Absolute 0.06 0.00 - 0.20 K/mcL LAB HEMETOLOGY METHOD 10/31/2024 11:15 AM [facility] Immature Granulocytes Absolute 0.02 0.00 - 0.03 K/mcL LAB HEMETOLOGY METHOD 10/31/2024 11:15 AM [facility] Blood Venous blood specimen / Unknown Venipuncture / Unknown 10/31/2024 10:35 AM EDT 10/31/2024 11:12 AM EDT us Varun Sutherland MD LAB BLOOD ORDERABLES Final Resul t [facility] [address] [place] [address], * (ABNORMAL) Comprehensive metabolic panel (10/31/2024 10:35 AM EDT) Sodium 140 133 - 145 mmol/L LAB CHEMISTRY METHOD 10/31/2024 11:57 AM [facility] Potassium 4.0 3.5 - 5.5 mmol/L LAB CHEMISTRY METHOD 10/31/2024 11:57 AM [facility] Chloride 107 96 - 110 mmol/L LAB CHEMISTRY METHOD 10/31/2024 11:57 AM [facility] CO2 29 21 - 32 mmol/L LAB CHEMISTRY METHOD 10/31/2024 11:57 AM [facility] Anion Gap 4 3 - 11 LAB CHEMISTRY METHOD 10/31/2024 11:57 AM [facility] Glucose 168(H) 70 - 100 mg/dL LAB CHEMISTRY METHOD 10/31/2024 11:57 AM [facility] BUN 15 5 - 25 mg/dL LAB CHEMISTRY METHOD 10/31/2024 11:57 AM [facility] Creatinine 0.84 0.70 - 1.30 mg/dL LAB CHEMISTRY METHOD 10/31/2024 11:57 AM [facility] eGFR 88 >=60 mL/min/1. 73m2 LAB CHEMISTRY METHOD 10/31/2024 11:57 AM [facility] Comment:Calculation based on the Chronic Kidney Disease Epidemiology Collaboration (CKD-EPI) equation refit without adjustment for race. BUN/Creatinine Ratio 17.9 LAB CHEMISTRY METHOD 10/31/2024 11:[address] [facility] Calcium 9.3 8.5 - 10.5 mg/dL LAB CHEMISTRY METHOD 10/31/2024 11:57 AM [facility] AST (SGOT) 25 10 - 42 unit/L LAB CHEMISTRY METHOD 10/31/2024 11:57 AM [facility] ALT (SGPT) 37 10 - 60 unit/L LAB CHEMISTRY METHOD 10/31/2024 11:57 AM [facility] Alkaline Phosphatase 67 42 - 121 unit/L LAB CHEMISTRY METHOD 10/31/2024 11:57 AM [facility] Total Protein 6.3 6.0 - 8.0 g/dL LAB CHEMISTRY METHOD 10/31/2024 11:57 AM [facility] Albumin 3.7 3.2 - 5.0 g/dL LAB CHEMISTRY METHOD 10/31/2024 11:57 AM [facility] Total Bilirubin 0.3 0.0 - 1.4 mg/dL LAB CHEMISTRY METHOD 10/31/2024 11:57 AM [facility] Blood Venous blood specimen / Unknown Venipuncture / Unknown 10/31/2024 10:35 AM EDT 10/31/2024 11:12 AM EDT us Varun Sutherland MD LAB BLOOD ORDERABLES Final Resul t [facility] [address] [place] [address], * CT Abdomen Pelvis wo Contrast (10/31/2024 [...] Signed Date: 10/31/2024 10:41 ET Workstation ID: [id number] Transcribed By: Self Edit Transcribed Date: 10/31/2024 [...] Signed Date: 10/31/2024 10:41 ET Workstation ID: [id number] Transcribed By: Self Edit Transcribed Date: 10/31/2024 10:34 ET Varun Sutherland MD [facility] CT PROCEDURES Final Result from Last 3 Months Insurance [place] - [place] MEDICARE Care Teams Global Vp Creative + Content Marketing Relationship Specialty Start Date End Date Montserrat Goldman MD [address] [place] [address] , [address] Physician Associ D/B/A: [facility] [place] PCP - General 05/27/21
--- OUTSIDE RECORDS SUMMARY | 2024-11-14 11:30 | XMS_ITS | Clinical Summary ---
Author Organization [employer] Address [address] [place] [address] [address] [place] [address] Care Team Providers Care Architectural Sales Consultant Name Role Phone Unavailable Primary Care Provider [...] age to complete this topic Insurance MEDICARE [facility]
== END 2024-11-14 11:00 | disposition home or self-care (01) ==
LOC: HO.HGS 09:54
PROVIDERS: PCP Internal Medicine
DX: R22.1 Localized swelling, mass and lump, neck (principal); Z98.890 Other specified postprocedural states; Z87.2 Personal history of diseases of the skin and subcutaneous tissue
CPT/HCPCS: 99213

== ENCOUNTER → 2024-11-14 09:53 | Outpatient (BNVA) | payer MEDICARE, MEDICAID, SELFPAY | PROVIDERS: PCP Internal Medicine | DX: R22.1 Localized swelling, mass and lump, neck (principal); Z98.890 Other specified postprocedural states; Z87.2 Personal history of diseases of the skin and subcutaneous tissue | CPT/HCPCS: 99212 ==

== ENCOUNTER 2025-03-01 13:54 | Outpatient (REF) | payer MEDICARE, MEDICAID, SELFPAY ==
--- NOTE | ~2025-03-01 | US_ITS ---
EXAMINATION: BILATERAL CAROTID ULTRASOUND WITH DOPPLER HISTORY: I65.23 - Occlusion and stenosis of bilateral carotid arteries COMPARISON: Comparison is made with the prior examination dated 10/14/2022. TECHNIQUE: Real time and Color and Spectral doppler ultrasonography of the carotid and vertebral arteries was performed in multiple planes. FINDINGS: There is a moderate amount of plaque on the right and a large amount of plaque on the left. VERTEBRAL FLOW DIRECTION: Antegrade bilaterally. PEAK SYSTOLIC VELOCITIES (in cm/sec): RIGHT: CCA: Prox: 151 Dist: 127 ICA: Prox: 161 Mid: 194 Dist: 131 ICA/CCA Ratio: 1.28 ECA: 240 Peak ICA end diastolic velocity (EDV): 35.4 LEFT: CCA: Prox: 114 Dist: 90.2 ICA: Prox: 225 Mid: 329 Dist: 229 ICA/CCA Ratio: 2.88 ECA: 470 Peak ICA end diastolic velocity (EDV): 45.1 US/US carotid duplex BI IMPRESSION: 1. Findings consistent with 50-79% stenosis of the bilateral internal carotid arteries. 2. Stenosis of bilateral bilateral external carotid arteries. Electronically signed by: Nik Ibarra MD 03/01/2025 02:39 PM [facility]
--- OUTSIDE RECORDS SUMMARY | 2025-03-01 13:58 | XMS_ITS | Clinical Summary ---
Author Organization [facility] Address [address] [place] [address] Phone Care Team Providers Care Logistics Engineering Manager Name Role Phone Montserrat Goldman MD Primary Care Provider [phone] Allergies No known active allergies Medications albuterol HFA (PROAIR HFA ; PROVENTIL HFA ; VENTOLIN HFA) 90 mcg/actuation inhaler Inhale 2 puffs by mouth every 4 (four) hours if needed for shortness of breath. 1 each Active Active Problems No known active problems Medical History Medical History Date Comments Hypertension Social History Tobacco Use Types Packs/Day Years Used Date Smoking Tobacco: Former Sex and Gender Information Value Date Recorded Sex Assigned at Not on file Legal Sex Male 9:43 PM EST Gender Identity Not on file Sexual Orientation Not on file Last Filed Vital Signs Vital Sign Reading [...] of 2) 10/03/2024 08/08/2024 COVID-19 Vaccine ( - season) 2024 01/02/2024, 04/17/2022, 09/20/2021, Additional history exists Influenza Vaccine (#1) 2024 01/02/2024, 2017 DTaP,Tdap,and Td Vaccines (2 - Td or [...] Insurance [place]ICA[place] - [place] MEDICARE Care Teams Logistics Engineering Manager Relationship Specialty Start Date End Date Motnserrat Goldman MD [address] [facility] , [address] [facility] Physician Associ D/B/A: [facility] [place] PCP - General 05/27/21
--- OUTSIDE RECORDS SUMMARY | 2025-03-01 13:58 | XMS_ITS | Clinical Summary ---
Author Organization [employer] Address [address] [place] [address] [address] [place] [address] Care Team Providers Care Door Liner Helper Name Role Phone Unavailable Primary Care Provider [...] age to complete this topic Insurance MEDICARE [facility]
== END 2025-03-01 13:55 | disposition home or self-care (01) ==
LOC: HO.US 13:54
PROVIDERS: PCP Internal Medicine; Visit Provider Surgery Vascular Surgery
DX: I65.23 Occlusion and stenosis of bilateral carotid arteries (principal)
CPT/HCPCS: 93880

== ENCOUNTER → 2025-03-01 13:57 | Outpatient (BNV) | payer MEDICARE, MEDICAID, SELFPAY | PROVIDERS: PCP Internal Medicine; Visit Provider Radiology Diagnostic Radiology | DX: I65.23 Occlusion and stenosis of bilateral carotid arteries (principal) | CPT/HCPCS: 93880 ==